=== PATIENT | male | born 1950 | race Caucasian/White ===

== ENCOUNTER → 2022-03-02 09:56 | Outpatient (BNVA) | payer MEDICARE, SELFPAY | PROVIDERS: PCP Internal Medicine; Visit Provider Psychiatry & Neurology Neurology | DX: G47.33 Obstructive sleep apnea (adult) (pediatric) (principal) | CPT/HCPCS: 99212 ==

== ENCOUNTER → 2023-02-25 09:53 | Outpatient (BNVA) | payer MEDICARE, SELFPAY | PROVIDERS: PCP Internal Medicine; Visit Provider Nurse Practitioner Family | DX: G47.33 Obstructive sleep apnea (adult) (pediatric) (principal) | CPT/HCPCS: 99212 ==

== ENCOUNTER 2023-09-13 10:35 | Outpatient (AMB) | payer MEDICARE, SELFPAY ==
--- NOTE | 2023-09-13 10:41 | HO.NEPHOV_ITS ---
HPI HPI Comments History of Present Illness Details Bruno is a pleasant middle-aged man with a history of resistant hypertension in the setting of obstructive sleep apnea and obesity. Blood pressure has been rather difficult to control in the past. He is sensitive to various medications In the past blood pressure was well controlled with Bystolic. During his recent hospitalization at [facility] all his medications with changes due to significantly elevated blood pressure. Currently he is on spironolactone 25 mg daily, clonidine 0.1 mg at bedtime, carvedilol 20 mg twice a day. Home blood pressure readings have been acceptable. He is having issues with clonidine and wants to stop this. There is a history of H pylori but he was unable to tolerate the treatment regimen and all the medications were discontinued few months ago. He had significant GI symptoms which seems to improved over the last month or so. He is having some trouble breathing in the form of wheezing when he goes out any attributes this to allergies. He follows with Dr. Enriquez from pulmonary History of severe aortic regurgitation status post TAVR in June 2020. Status post pacemaker placement [facility] Medical History Asthma Obstructive sleep apnea Surgical History S/P placement of cardiac pacemaker Aortic valve replaced H/O shoulder surgery Family History Father Afib Mother Pacemaker Social History Patient Tobacco Use Status: Never used Tobacco Vital Signs 09/13/23 10:47 Height 5 ft 7 in Weight 217 lb BMI 34.0 BP 140/70 H Blood Pressure Location Rt brachial Position Sitting Pulse 60 Pulse Source Pulse Oximeter Pulse Oximetry (%) 97 Oxygen Delivery Method Room Air Physical Exam Vital Signs: Last Vital Signs Pulse 60 09/13/23 10:47 BP 140/70 H 09/13/23 10:47 Pulse Ox 97 09/13/23 10:47 Oxygen Delivery Method Room Air 09/13/23 10:47 BMI result Body Mass Index 34.0 Supine blood pressure 130/80 sitting and standing blood pressure were also and 130/80 on the right upper extremity no orthostatic changes. Const General: comfortable Nutritional Appearance: well nourished Orientation/consciousness: patient oriented x3 HEENT Head: No normal to inspection Mouth: moist mucous membranes Neck Neck: Yes supple and Yes no JVD Resp Auscultation: clear to auscultation bilaterally, no rales and rub present Cardio Jugular venous distension: no JVD Palpation: no palpable S3 and no palpable S4 Heart sounds: no rubs GI Palpation (GI): Soft to palpation and nontender Percussion: No Fluid wave present General: Yes no CVA tenderness Back/Spine/Pelvis Back: no CVA tenderness Skin General skin exam: no rashes or lesions noted Neuro General: patient oriented x3 Extrem General: Yes no pedal edema and No clubbing Results Reviewed Results Reviewed: All results were reviewed As of June serum creatinine 1.1; serum electrolytes were normal. Assessment & Plan Assessment & Plan (1) HTN (hypertension): Code(s): I10 - Essential (primary) hypertension (2) Obstructive sleep apnea: Code(s): G47.33 - Obstructive sleep apnea (adult) (pediatric) Plan Bruno has resistant hypertension in setting of obstructive sleep apnea and blood pressure has been difficult to control. He has sensitive to weight is antidepressant medications and this has made management rather difficult. The list of medication that he is allergic to have been listed above. He able to tolerate Carvedilol and Spironolactone. I will continue with current dose of Carvedilol and Spironolactone. Encouraged him to stay on low-sodium diet Continue to use CPAP regularly. At his request I will discuss continue Clonidine 0.1 mg q.h.s. and continue to monitor blood pressure closely. Hopefully did the side effects that he is complaining of which is related to Clonidine should improve. Coding Level of Care Code Est Pt Level 4 (47552) Diagnoses HTN (hypertension) I10 Obstructive sleep apnea G47.33
[2023-09-13 10:47] VITALS: BP 140/70; PULSE 60; O2SAT 97; BMI 34.0
== END 2023-09-13 11:09 | disposition home or self-care (01) ==
PROVIDERS: PCP Internal Medicine; Visit Provider Internal Medicine Hypertension Specialist
DX: I10 Essential (primary) hypertension (principal); G47.33 Obstructive sleep apnea (adult) (pediatric)
CPT/HCPCS: 99214

== ENCOUNTER → 2023-09-13 10:35 | Outpatient (BNVA) | payer MEDICARE, SELFPAY | PROVIDERS: PCP Internal Medicine; Visit Provider Internal Medicine Hypertension Specialist | DX: I10 Essential (primary) hypertension (principal); G47.33 Obstructive sleep apnea (adult) (pediatric) | CPT/HCPCS: 99212 ==

== ENCOUNTER 2024-01-08 11:03 | Outpatient (AMB) | payer MEDICARE, SELFPAY ==
[2024-01-08 11:04] VITALS: BP 162/84; PULSE 82; O2SAT 96; BMI 34.5
--- NOTE | 2024-01-08 11:04 | HO.NEPHOV ---
HPI HPI Comments History of Present Illness Details Bruno is a pleasant middle-aged man with a history of resistant hypertension in the setting of obstructive sleep apnea and obesity. Blood pressure has been rather difficult to control in the past. He is sensitive to various medications In the past blood pressure was well controlled with Bystolic. During his recent hospitalization at [facility] all his medications with changes due to significantly elevated blood pressure. Currently he is on spironolactone 25 mg daily, clonidine 0.1 mg at bedtime, carvedilol 20 mg twice a day. Home blood pressure readings have been acceptable. He is having issues with clonidine and wants to stop this. There is a history of H pylori but he was unable to tolerate the treatment regimen and all the medications were discontinued few months ago. He had significant GI symptoms which seems to improved over the last month or so. He is having some trouble breathing in the form of wheezing when he goes out any attributes this to allergies. He follows with Dr. Enriquez from pulmonary History of severe aortic regurgitation status post TAVR in June 2020. Status post pacemaker placement 01/08/24 Home BP was high H is back on Clonidine 0.1 mg QHS Still has dyspnea on exertion No chest pain PFSH Medical History Asthma Obstructive sleep apnea Surgical History S/P placement of cardiac pacemaker Aortic valve replaced H/O shoulder surgery Family History Father Afib Mother Pacemaker Social History Patient Tobacco Use Status: Never used Tobacco Vital Signs 01/08/24 11:04 Height 5 ft 7 in Weight 220 lb BMI 34.5 BP 162/84 H Blood Pressure Location Lt brachial Position Sitting Pulse 82 Pulse Source Pulse Oximeter Pulse Oximetry (%) 96 Oxygen Delivery Method Room Air Physical Exam Vital Signs: Last Vital Signs Pulse 82 01/08/24 11:04 BP 162/84 H 01/08/24 11:04 Pulse Ox 96 01/08/24 11:04 Oxygen Delivery Method Room Air 01/08/24 11:04 BMI result Body Mass Index 34.5 Const General: comfortable Nutritional Appearance: well nourished Orientation/consciousness: patient oriented x3 HEENT Head: No normal to inspection Mouth: moist mucous membranes Neck Neck: Yes supple and Yes no JVD Resp Auscultation: clear to auscultation bilaterally, no rales and rub present Cardio Jugular venous distension: no JVD Palpation: no palpable S3 and no palpable S4 Heart sounds: no rubs GI Palpation (GI): Soft to palpation and nontender Percussion: No Fluid wave present General: Yes no CVA tenderness Back/Spine/Pelvis Back: no CVA tenderness Skin General skin exam: no rashes or lesions noted Neuro General: patient oriented x3 Extrem General: Yes no pedal edema and No clubbing Assessment & Plan Assessment & Plan (1) HTN (hypertension): Code(s): I10 - Essential (primary) hypertension (2) Obstructive sleep apnea: Code(s): G47.33 - Obstructive sleep apnea (adult) (pediatric) Plan Bruno has resistant hypertension in setting of obstructive sleep apnea and blood pressure has been difficult to control. He has sensitive to weight is antidepressant medications and this has made management rather difficult. The list of medication that he is allergic to have been listed above. Encouraged him to stay on low-sodium diet Continue to use CPAP regularly. continue Clonidine 0.1 mg q.h.s. and continue to monitor blood pressure closely. Needs cardiac evaluation for dyspnea on exertion Has appt with cards in few months Orders: Orders Basic Metabolic Panel 4 Months I10 - Essential (primary) hypertension Coding Level of Care Code Est Pt Level 4 (23117) Diagnoses HTN (hypertension) I10 Obstructive sleep apnea G47.33 Results Reviewed Nephrology Results: No Data to Display
== END 2024-01-08 11:32 | disposition home or self-care (01) ==
PROVIDERS: PCP Internal Medicine; Visit Provider Internal Medicine Hypertension Specialist
DX: I10 Essential (primary) hypertension (principal); G47.33 Obstructive sleep apnea (adult) (pediatric)
CPT/HCPCS: 99214

== ENCOUNTER → 2024-01-08 11:03 | Outpatient (BNVA) | payer MEDICARE, SELFPAY | PROVIDERS: PCP Internal Medicine; Visit Provider Internal Medicine Hypertension Specialist | DX: I10 Essential (primary) hypertension (principal); G47.33 Obstructive sleep apnea (adult) (pediatric); E66.9 Obesity, unspecified; Z79.899 Other long term (current) drug therapy | CPT/HCPCS: 99212 ==

== ENCOUNTER 2024-02-26 10:58 | Outpatient (AMB) | payer MEDICARE, SELFPAY ==
--- NOTE | 2024-02-26 11:02 | MHC.OFFVIS ---
Vital Signs 02/26/24 11:19 Height 5 ft 7 in Weight 216 lb 8 oz BMI 33.9 BP 140/70 H Blood Pressure Location Lt brachial Position Sitting Pulse 61 Pulse Source Pulse Oximeter Pulse Oximetry (%) 98 Oxygen Delivery Method Room Air Intake Visit Reasons: 1yr f/u - Conf w/address Intake Note: Patient presents for 1 year f/u. Having trouble falling back to sleep after waking up during the night. Latest CPAP machine broke and pt. is using previous machine. Pt. needs a schedule appt for Nov for new order for a new machine. Allergies amlodipine Allergy (Mild, Verified 02/26/24 11:12) Drowsy erythromycin base Allergy (Mild, Verified 02/26/24 11:12) Abdominal Pain Penicillins Allergy (Mild, Verified 02/26/24 11:12) Rash statins Allergy (Severe, Uncoded 02/25/23 10:05) joint pain HPI Comments Details: 74 y/o male patient comes for follow up of MANNY on CPAP. Pt reports his CPAP broken, and uses his old CPAP. He is eligible for new CPAP after September,. The CPAP compliance and therapy response (11/02/23-01/30/24) reviewed. He is on AutoPAP 8-13 cm of water. Compliance report-98% The average usage hours 7 hours and 45 min. AHI 1.2 and the max pressure was 12.9. Pt reports having trouble staying sleep. He goes to bathroom between 2:30-4:30 am and it is hard to go back to sleep. He sleeps, but feels not having deep sleep or resting enough. [facility] Medical History Asthma Obstructive sleep apnea Surgical History S/P placement of cardiac pacemaker Aortic valve replaced H/O shoulder surgery Family History (Updated 02/26/24 @ 11:19 by Kay Colbert CMA) Father Afib Mother Pacemaker Social History Patient Tobacco Use Status: Never used Tobacco Review of Systems Const All systems reviewed & are unremarkable except as noted in HPI and below ENT Reports Normal hearing present Neuro Reports Normal hearing present Physical Exam Vital Signs: BMI result Body Mass Index 33.9 Const General: cooperative and comfortable Nutritional Appearance: obese Orientation/consciousness: patient oriented x3 Limitations: no limitations Neck Neck: Yes full ROM and Yes supple Resp Effort & Inspection: normal respiratory effort and able to speak in complete sentences Neuro General: patient oriented x3, gait normal, tone normal and moves all extremities Cranial nerves: Yes Bilaterally intact EOM present, Yes Normal facial strength present, Yes Midline tongue present, Yes Normal hearing present, Yes Ability to bilaterally rotate head present and Yes Ability to bilaterally elevate shoulders present Cognition (Neuro): normal cognition Gait exam (Neuro): Normal gait present Motor exam (neuro): 5/5 motor strength present throughout, Pronator motor function not present and no tremor noted Psych Appearance: grossly normal Mental Status: mental status grossly normal Speech and movement: Normal speech and movement present Affect: normal affect Attitude: cooperative Assessment & Plan Assessment & Plan (1) Obstructive sleep apnea: Code(s): G47.33 - Obstructive sleep apnea (adult) (pediatric) Category: Medical Plan Continue to use APAP [id number] as patient experiences good clinical effects. Stressed compliance, use CPAP nightly and more than 4 hours. Advised patient to try melatonin 1 mg, 1-3 tabs qHS. Wt reduction advised. Medications: New melatonin 1-3 tabs orally bedtime; 30 days 90 tabs 1RF sleep Coding Level of Care Code Est Pt Level 3 (04507) Diagnoses Obstructive sleep apnea G47.33
[2024-02-26 11:19] VITALS: BP 140/70; PULSE 61; O2SAT 98; BMI 33.9
== END 2024-02-26 11:45 | disposition home or self-care (01) ==
PROVIDERS: Visit Provider Nurse Practitioner Family
DX: G47.33 Obstructive sleep apnea (adult) (pediatric) (principal)
CPT/HCPCS: 99213

== ENCOUNTER → 2024-02-26 10:58 | Outpatient (BNVA) | payer MEDICARE, SELFPAY | PROVIDERS: Visit Provider Nurse Practitioner Family | DX: G47.33 Obstructive sleep apnea (adult) (pediatric) (principal) | CPT/HCPCS: 99212 ==

== ENCOUNTER 2024-05-07 10:49 | Outpatient (AMB) | payer MEDICARE, SELFPAY ==
[2024-05-07 10:50] VITALS: BP 146/82; PULSE 66; O2SAT 97; BMI 34.0
--- NOTE | 2024-05-07 10:50 | HO.NEPHOV_ITS ---
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 Required: No Accompanied by: Self / Same As Patient Allergies amlodipine Allergy (Mild, Verified 05/07/24 10:53) Drowsy erythromycin base Allergy (Mild, Verified 05/07/24 10:53) Abdominal Pain Penicillins Allergy (Mild, Verified 05/07/24 10:53) Rash statins Allergy (Severe, Uncoded 02/25/23 10:05) joint pain Medication List - Last Reconciled 05/07/24 by Abran Iqbal MD albuterol sulfate 90 mcg/actuation (Ventolin HFA) 2 puffs inhalation Q6H PRN aspirin (Adult Low Dose Aspirin) 81 mg PO DAILY budesonide-formoterol 160-4.5 mcg/actuation (Symbicort) 2 puffs inhalation BID carvedilol 6.25 mg PO BID carvedilol 12.5 mg PO BID clonidine HCl 0.1 mg PO BEDTIME CPAP (CPAP Machine/Device) As directed ipratropium bromide intranasal PRN melatonin 1-3 tabs orally bedtime; 30 days peak flow meter (In-Check Nasal With Mask) As directed spironolactone 25 mg PO DAILY HPI Comments Details: Bruno is a pleasant middle-aged man with a history of resistant hypertension in the setting of obstructive sleep apnea and obesity. Blood pressure has been rather difficult to control in the past. He is sensitive to various medications In the past blood pressure was well controlled with Bystolic. During his recent hospitalization at [facility] all his medications with changes due to significantly elevated blood pressure. Currently he is on spironolactone 25 mg daily, clonidine 0.1 mg at bedtime, carvedilol 20 mg twice a day. Home blood pressure readings have been acceptable. He is having issues with clonidine and wants to stop this. There is a history of H pylori but he was unable to tolerate the treatment regimen and all the medications were discontinued few months ago. He had significant GI symptoms which seems to improved over the last month or so. He is having some trouble breathing in the form of wheezing when he goes out any attributes this to allergies. He follows with Dr. Enriquez from pulmonary History of severe aortic regurgitation status post TAVR in June 2020. Status post pacemaker placement 01/08/24 Home BP was high H is back on Clonidine 0.1 mg QHS Still has dyspnea on exertion No chest pain 05/07/2024. Here for follow-up. Continues with the current antihypertensive regimen. He wakes up at night what least once to urinate. He takes melatonin. Home blood pressure readings were reviewed [facility] Medical History Asthma Obstructive sleep apnea Surgical History S/P placement of cardiac pacemaker Aortic valve replaced H/O shoulder surgery Family History Father Afib Mother Pacemaker Social History Patient Tobacco Use Status: Never used Tobacco Physical Exam Vital Signs: Last Vital Signs Pulse 66 05/07/24 10:50 BP 146/82 H 05/07/24 10:50 Pulse Ox 97 05/07/24 10:50 Oxygen Delivery Method Room Air 05/07/24 10:50 BMI result Body Mass Index 34.0 Const General: comfortable; No acute distress Orientation/consciousness: patient oriented x3 Eyes General: appearance normal, both eyes and all related structures Visual Cueav: normal visual cueva by confrontation Neck Neck: Yes supple and Yes no JVD Resp Effort & Inspection: normal respiratory effort and respiratory effort not decreased Auscultation: rhonchi Cardio Palpation: no palpable S3 and no palpable S4 Heart sounds: no rubs GI Inspection: Yes normal to inspection Palpation (GI): Soft to palpation Percussion: Yes normal to percussion Auscultation: normal bowel sounds General: Yes no CVA tenderness Back/Spine/Pelvis Back: no CVA tenderness Skin General skin exam: no petechiae and no purpura Neuro General: patient oriented x3 and no focal motor deficits Extrem General: No clubbing and No edema Results Reviewed Results Reviewed: Labs reviewed Nephrology Results: No Data to Display Assessment & Plan Assessment & Plan (1) HTN (hypertension): Code(s): I10 - Essential (primary) hypertension Category: Medical (2) Obstructive sleep apnea: Code(s): G47.33 - Obstructive sleep apnea (adult) (pediatric) Category: Medical Plan Bruno has resistant hypertension in setting of obstructive sleep apnea and blood pressure has been difficult to control. He has sensitive to weight is antidepressant medications and this has made management rather difficult. The list of medication that he is allergic to have been listed above. Encouraged him to stay on low-sodium diet Continue to use CPAP regularly. Current continue with current regimen including carvedilol 18.75 mg b.i.d. and spironolactone 25 mg daily. continue Clonidine 0.1 mg q.h.s. and continue to monitor blood pressure closely. Medications: Changed From carvedilol must administer with a meal/food 12.5 mg PO BID To carvedilol In addition to 6.25 mg BID ; 12.5 mg PO BID 180 tabs 3RF Refilled spironolactone 25 mg PO DAILY 90 tabs 3RF carvedilol 6.25 mg PO BID 180 tabs 3RF Coding Level of Care Code Est Pt Level 4 (59807) Diagnoses HTN (hypertension) I10 Obstructive sleep apnea G47.33
== END 2024-05-07 11:19 | disposition home or self-care (01) ==
PROVIDERS: PCP Internal Medicine; Visit Provider Internal Medicine Hypertension Specialist
DX: I10 Essential (primary) hypertension (principal); G47.33 Obstructive sleep apnea (adult) (pediatric)
CPT/HCPCS: 99214

== ENCOUNTER → 2024-05-07 10:49 | Outpatient (BNVA) | payer MEDICARE, SELFPAY | PROVIDERS: PCP Internal Medicine; Visit Provider Internal Medicine Hypertension Specialist | DX: I10 Essential (primary) hypertension (principal); G47.33 Obstructive sleep apnea (adult) (pediatric) | CPT/HCPCS: 99212 ==

== ENCOUNTER 2024-08-05 13:45 | Outpatient (AMB) | payer MEDICARE, SELFPAY ==
[2024-08-05 13:45] VITALS: BP 138/78; PULSE 65; O2SAT 81; BMI 33.7
--- NOTE | 2024-08-05 13:45 | HO.NEPHOV_ITS ---
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 Required: No Accompanied by: Self / Same As Patient Allergies amlodipine Allergy (Mild, Verified 08/05/24 13:49) Drowsy erythromycin base Allergy (Mild, Verified 08/05/24 13:49) Abdominal Pain Penicillins Allergy (Mild, Verified 08/05/24 13:49) Rash statins Allergy (Severe, Uncoded 02/25/23 10:05) joint pain Medication List - Last Reconciled 08/05/24 by Abran Iqbal MD albuterol sulfate 90 mcg/actuation (Ventolin HFA) 2 puffs inhalation Q6H PRN aspirin (Adult Low Dose Aspirin) 81 mg PO DAILY budesonide-formoterol 160-4.5 mcg/actuation (Symbicort) 2 puffs inhalation BID carvedilol 12.5 mg PO BID carvedilol 6.25 mg PO BID clonidine HCl 0.1 mg PO BEDTIME CPAP (CPAP Machine/Device) As directed ipratropium bromide intranasal PRN melatonin 1-3 tabs orally bedtime; 30 days peak flow meter (In-Check Nasal With Mask) As directed spironolactone 25 mg PO DAILY HPI Comments Details: Bruno is a pleasant middle-aged man with a history of resistant hypertension in the setting of obstructive sleep apnea and obesity. Blood pressure has been rather difficult to control in the past. He is sensitive to various medications In the past blood pressure was well controlled with Bystolic. During his recent hospitalization at [facility] all his medications with changes due to significantly elevated blood pressure. Currently he is on spironolactone 25 mg daily, clonidine 0.1 mg at bedtime, carvedilol 20 mg twice a day. Home blood pressure readings have been acceptable. He is having issues with clonidine and wants to stop this. There is a history of H pylori but he was unable to tolerate the treatment regimen and all the medications were discontinued few months ago. He had significant GI symptoms which seems to improved over the last month or so. He is having some trouble breathing in the form of wheezing when he goes out any attributes this to allergies. He follows with Dr. Enriquez from pulmonary History of severe aortic regurgitation status post TAVR in June 2020. Status post pacemaker placement 01/08/24 Home BP was high H is back on Clonidine 0.1 mg QHS Still has dyspnea on exertion No chest pain 05/07/2024. Here for follow-up. Continues with the current antihypertensive regimen. He wakes up at night what least once to urinate. He takes melatonin. Home blood pressure readings were reviewed 08/05/24 OverallOverall doing well BP accpetable Complains of increased urinary frequency at night. He has some hesitancy as well. [facility] Medical History Asthma Obstructive sleep apnea Surgical History S/P placement of cardiac pacemaker Aortic valve replaced H/O shoulder surgery Family History Father Afib Mother Pacemaker Social History Patient Tobacco Use Status: Never used Tobacco Physical Exam Vital Signs: Last Vital Signs Pulse 65 08/05/24 13:45 BP 138/78 08/05/24 13:45 Pulse Ox 81 L 08/05/24 13:45 Oxygen Delivery Method Room Air 08/05/24 13:45 BMI result Body Mass Index 33.7 Const General: comfortable; No acute distress Orientation/consciousness: patient oriented x3 Eyes General: appearance normal, both eyes and all related structures Visual Cueva: normal visual cueva by confrontation Neck Neck: Yes supple and Yes no JVD Resp Effort & Inspection: normal respiratory effort and respiratory effort not decreased Auscultation: rhonchi Cardio Palpation: no palpable S3 and no palpable S4 Heart sounds: no rubs GI Inspection: Yes normal to inspection Palpation (GI): Soft to palpation Percussion: Yes normal to percussion Auscultation: normal bowel sounds General: Yes no CVA tenderness Back/Spine/Pelvis Back: no CVA tenderness Skin General skin exam: no petechiae and no purpura Neuro General: patient oriented x3 and no focal motor deficits Extrem General: No clubbing and No edema Results Reviewed Nephrology Results: No Data to Display Assessment & Plan Assessment & Plan (1) HTN (hypertension): Code(s): I10 - Essential (primary) hypertension Category: Medical (2) Obstructive sleep apnea: Code(s): G47.33 - Obstructive sleep apnea (adult) (pediatric) Category: Medical (3) BPH (benign prostatic hyperplasia): Code(s): N40.0 - Benign prostatic hyperplasia without lower urinary tract symptoms Category: Medical Plan Bruno has resistant hypertension in setting of obstructive sleep apnea and blood pressure has been difficult to control. He has sensitive to weight is antidepressant medications and this has made management rather difficult. The list of medication that he is allergic to have been listed above. Encouraged him to stay on low-sodium diet Continue to use CPAP regularly. Current continue with current regimen including carvedilol 18.75 mg b.i.d. and spironolactone 25 mg daily. continue Clonidine 0.1 mg q.h.s. and continue to monitor blood pressure closely. Increase nocturia and hesitancy. Probably has BPH She was referred to Urology Orders: Referrals Urology Referral N40.0 - Benign prostatic hyperplasia without lower urinary tract symptoms, R31.9 - Hematuria, unspecified Coding Level of Care Code Est Pt Level 4 (25838) Diagnoses HTN (hypertension) I10 Obstructive sleep apnea G47.33 BPH (benign prostatic hyperplasia) N40.0
== END 2024-08-05 14:20 | disposition home or self-care (01) ==
PROVIDERS: PCP Internal Medicine; Visit Provider Internal Medicine Hypertension Specialist
DX: I1A.0 Resistant hypertension (principal); G47.33 Obstructive sleep apnea (adult) (pediatric); N40.0 Benign prostatic hyperplasia without lower urinary tract symptoms
CPT/HCPCS: 99214

== ENCOUNTER → 2024-08-05 13:45 | Outpatient (BNVA) | payer MEDICARE, SELFPAY | PROVIDERS: PCP Internal Medicine; Visit Provider Internal Medicine Hypertension Specialist | DX: I10 Essential (primary) hypertension (principal); N40.0 Benign prostatic hyperplasia without lower urinary tract symptoms; R31.9 Hematuria, unspecified; E66.9 Obesity, unspecified; G47.33 Obstructive sleep apnea (adult) (pediatric); Z68.33 Body mass index [BMI] 33.0-33.9, adult | CPT/HCPCS: 99212 ==

== ENCOUNTER 2024-09-16 12:31 | Outpatient (AMB) | payer MEDICARE, SELFPAY ==
--- NOTE | 2024-09-16 12:37 | MHC.OFFVIS ---
Vital Signs 09/16/24 12:38 Height 5 ft 7 in Weight 215 lb BMI 33.7 Intake Visit Reasons: requalify CPAP supply Intake Note: Patient presents for follow up Allergies amlodipine Allergy (Mild, Verified 09/16/24 12:38) Drowsy erythromycin base Allergy (Mild, Verified 09/16/24 12:38) Abdominal Pain Penicillins Allergy (Mild, Verified 09/16/24 12:38) Rash statins Allergy (Severe, Uncoded 09/16/24 12:38) joint pain HPI Comments Details: 74 y/o male patient comes for follow up of MANNY on CPAP. Pt reports his CPAP broken, and uses his old CPAP. He is eligible for new CPAP after September,. The CPAP compliance and therapy response (11/02/23-01/30/24) reviewed. He is on AutoPAP 8-13 cm of water. Compliance report-98% The average usage hours 7 hours and 45 min. AHI 1.2 and the max pressure was 12.9. [facility] Medical History Asthma Obstructive sleep apnea Surgical History S/P placement of cardiac pacemaker Aortic valve replaced H/O shoulder surgery Family History Father Afib Mother Pacemaker Social History Patient Tobacco Use Status: Never used Tobacco Review of Systems ENT Reports Normal hearing present Neuro Reports Normal hearing present Physical Exam Vital Signs: BMI result Body Mass Index 33.7 Const General: cooperative Nutritional Appearance: obese Orientation/consciousness: patient oriented x3 Limitations: no limitations Neck Neck: Yes full ROM and Yes supple Resp Effort & Inspection: normal respiratory effort and able to speak in complete sentences Neuro General: patient oriented x3, gait normal, tone normal and moves all extremities Cranial nerves: Yes Bilaterally intact EOM present, Yes Normal facial strength present, Yes Midline tongue present, Yes Normal hearing present, Yes Ability to bilaterally rotate head present and Yes Ability to bilaterally elevate shoulders present Cognition (Neuro): normal cognition Gait exam (Neuro): Normal gait present Motor exam (neuro): 5/5 motor strength present throughout, Pronator motor function not present and no tremor noted Psych Appearance: grossly normal Mental Status: mental status grossly normal Speech and movement: Normal speech and movement present Affect: normal affect Attitude: cooperative Assessment & Plan Assessment & Plan (1) Obstructive sleep apnea: Code(s): G47.33 - Obstructive sleep apnea (adult) (pediatric) Category: Medical Plan Continue to use APAP [id number] as patient experiences good clinical effects.A script for anew equipment was sent to [facility]. Stressed compliance, use CPAP nightly and more than 4 hours. Advised patient to try melatonin 1 mg, 1-3 tabs qHS. Wt reduction advised. Suggested he call PCP or go to Urgent care for evaluation of diarrhea and possible dehydration. Orders: Orders RT home sleep study Today G47.33 - Obstructive sleep apnea (adult) (pediatric) Coding Level of Care Code Est Pt Level 4 (38611) Complex EM visit Add On G2211 Diagnoses Obstructive sleep apnea G47.33
[2024-09-16 12:38] VITALS: BMI 33.7
== END 2024-09-16 13:05 | disposition home or self-care (01) ==
PROVIDERS: PCP Obstetrics & Gynecology; Visit Provider Psychiatry & Neurology Neurology
DX: G47.33 Obstructive sleep apnea (adult) (pediatric) (principal)
CPT/HCPCS: 99214; G2211

== ENCOUNTER → 2024-09-16 12:31 | Outpatient (BNVA) | payer MEDICARE, SELFPAY | PROVIDERS: PCP Obstetrics & Gynecology; Visit Provider Psychiatry & Neurology Neurology | DX: G47.33 Obstructive sleep apnea (adult) (pediatric) (principal); Z99.89 Dependence on other enabling machines and devices; Z76.0 Encounter for issue of repeat prescription | CPT/HCPCS: 99212 ==

== ENCOUNTER 2024-10-05 14:51 | Outpatient (AMB) | payer MEDICARE, SELFPAY ==
--- NOTE | 2024-10-04 21:53 | MHC.OFFVIS ---
Intake Visit Reasons: Increase nocturia and hesitancy Intake Note: New patient is present to establish care for BPH, Hematuria Any Urology Medications: None Antibiotic Allergy: Erythromycin, Penicillins Blood Thinner: Aspirin PVR: 12ml's Family History: Bladder Cancer? No Prostate Cancer? No Patient Symptoms: Patient states he is having problem going to urinate, some pain in the bladder Change Management Facilitator Required: No Accompanied by: Self / Same As Patient Allergies amlodipine Allergy (Mild, Verified 10/05/24 16:03) Drowsy erythromycin base Allergy (Mild, Verified 10/05/24 16:03) Abdominal Pain Penicillins Allergy (Mild, Verified 10/05/24 16:03) Rash statins Allergy (Severe, Uncoded 10/05/24 16:03) joint pain Medication List - Last Reconciled 10/05/24 by Jimmie Olson MD albuterol sulfate 90 mcg/actuation (Ventolin HFA) 2 puffs inhalation Q6H PRN aspirin (Adult Low Dose Aspirin) 81 mg PO DAILY budesonide-formoterol 160-4.5 mcg/actuation (Symbicort) 2 puffs inhalation BID clonidine HCl 0.1 mg PO BEDTIME CPAP (CPAP Machine/Device) As directed ipratropium bromide intranasal PRN melatonin 1-3 tabs orally bedtime; 30 days nebivolol (Bystolic) 20 mg PO DAILY peak flow meter (In-Check Nasal With Mask) As directed spironolactone 25 mg PO DAILY tamsulosin (Flomax) 0.4 mg PO BEDTIME HPI Comments Details: 10/05/24--new patient-BPH symptoms. s/o's slow urinary stream, nocturia. AUA score 17. PMH of chronic kidney disease, followed by Neurology for obstructive sleep apnea. Denies hematuria. Will trial flomax 0.4 mg daily. PFSH Medical History Asthma Obstructive sleep apnea Surgical History S/P placement of cardiac pacemaker Aortic valve replaced H/O shoulder surgery Family History Father Afib Mother Pacemaker Social History Patient Tobacco Use Status: Never used Tobacco Review of Systems Const All systems reviewed & are unremarkable except as noted in HPI and below Reports no additional complaints Eyes Reports no additional complaints ENT Reports no additional complaints Card Reports no additional complaints Resp Reports no additional complaints GI Reports no additional complaints Reports as per HPI Musc Reports no additional complaints Skin/Breast Reports system reviewed and no additional complaints, except as documented Neuro Reports no additional complaints Psych Reports no additional complaints Endo Reports no additional complaints Micheal/Lymph Reports no additional complaints Aller/Immun Reports no additional complaints Physical Exam Const General: healthy appearing, no acute distress and well developed Orientation/consciousness: patient oriented x3 HEENT Head: Yes normocephalic and Yes atraumatic Eyes Conjunctivae: conjunctivae normal Neck Neck: Yes normal visual inspection Chest Chest palpation & inspection: normal inspection of the chest Resp Effort & Inspection: normal respiratory effort GI Inspection: Yes normal to inspection Skin General skin exam: no rashes or lesions noted Neuro General: patient oriented x3 Extrem General: No pedal edema Psych Appearance: grossly normal Affect: normal affect Office Procedures Post Void Residual Post Residual Void Post Void Residual (PVR): 12 51587-[id number] Void Residual by ultrasound Results AMB Urinalysis, Automated UA Leukoctes 0 Gene/uL Last Edit by Karina Shields CMA on 10/05/24 16:06 UA Nitrite Negative Last Edit by Karina Shields CMA on 10/05/24 16:06 UA Urobilinogen 0.2 mg/dL Last Edit by Karina Shields CMA on 10/05/24 16:06 UA Protein 0 mg/dL Last Edit by Karina Shields CMA on 10/05/24 16:06 UA pH 6.0 Last Edit by Karina Shields CMA on 10/05/24 16:06 UA Blood 10 Anthony/uL Last Edit by Karina Shields CMA on 10/05/24 16:06 UA Specific [place] 1.030 Last Edit by Karina Shields CMA on 10/05/24 16:06 UA Ketone Negative Last Edit by Karina Shields CMA on 10/05/24 16:06 UA Bilirubin 0 mg/dL Last Edit by Karina Shields CMA on 10/05/24 16:06 UA Glucose 0 mg/dL Last Edit by Karina Shields CMA on 10/05/24 16:06 Quality Reporting (2019) Benign Prostatic Hyperplasia ([facility] 771) AUA symptom score: 17 Quality of life due to urinary symptoms: If you were to spend the rest of your life with your urinary condition the way it is now, how would you feel about that?: Unhappy Results Reviewed Results Reviewed: Laboratory Last Values Urine pH (Auto) 6.0 10/05/24 15:30 Specific [place] (Auto) 1.030 10/05/24 15:30 Urine Protein (Auto) 0 mg/dL 10/05/24 15:30 Glucose (UA)(Auto) 0 mg/dL 10/05/24 15:30 Urine Ketones (Auto) Negative 10/05/24 15:30 Urine Blood (Auto) 10 Anthony/uL 10/05/24 15:30 Urine Nitrite (Auto) Negative 10/05/24 15:30 Urine Bilirubin (Auto) 0 mg/dL 10/05/24 15:30 Urine Urobilinogen (Auto) 0.2 mg/dL 10/05/24 15:30 Leukocyte Esterase (Auto) 0 Gene/uL 10/05/24 15:30 Assessment & Plan Assessment & Plan (1) BPH (benign prostatic hyperplasia): Code(s): N40.0 - Benign prostatic hyperplasia without lower urinary tract symptoms Category: Medical (2) Weak urinary stream: Code(s): R39.12 - Poor urinary stream Category: Medical (3) Nocturia: Code(s): R35.1 - Nocturia Category: Medical Plan renal/bladder US, tamsulin 04 mg daily Orders: Orders AMB Urinalysis Automated 10/05/24 Z13.9 - Encounter for screening, unspecified AMB Post Void Residual by ultrasound 10/05/24 N40.0 - Benign prostatic hyperplasia without lower urinary tract symptoms US retroperitoneal comp 10/05/24 N40.0 - Benign prostatic hyperplasia without lower urinary tract symptoms, R35.1 - Nocturia Medications: New tamsulosin (Flomax) 0.4 mg PO BEDTIME 30 caps 3RF Patient Instructions: The patient had an opportunity to ask questions regarding treatment plan. The patient expressed understanding and agreement with the above treatment plan. The patient is aware they should contact our office by phone for worsening of their current condition or the appearance of new symptoms. Compliance is encouraged with any medications and followup testing that is ordered. It is a privilege to be allowed the opportunity to participate in the urologic care of your patient. If you have any questions or concerns regarding treatment for the above conditions please do not hesitate to contact me. The office telephone contact is [phone]. This note is constructed in part using voice recognition software. 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 Yours sincerely, Jimmie Olson MD Coding Level of Care Code New Pt Level 4 (86490) Diagnoses BPH (benign prostatic hyperplasia) N40.0 Weak urinary stream R39.12 Nocturia R35.1 CPT Codes Post Residual Void - PVR CPT Code: 82175-Gfcx Void Residual by ultrasound ([id number]) AUA Symptom Score AUA Incomplete emptying - It does not feel like I empty my bladder all the way.: 1 - Less than 1 time in 5 Frequency - I have to go again less than two hours after I finish urinating.: 1 - Less than 1 time in 5 Intermittency - I stop and start again several times when I urinate.: 1 - Less than 1 time in 5 Urgency - It is hard to wait when I have to urinate.: 5 - Almost always Weak stream - I have a weak urinary stream.: 5 - Almost always Straining - I have to push or strain to begin urination.: 2 - Less than half the time Nocturia - I get up to urinate after I go to bed until the time I get up in the morning.: 2 times AUA Symptom Score: 17 Quality of life due to urinary symptoms: If you were to spend the rest of your life with your urinary condition the way it is now, how would you feel about that?: Unhappy Source: Cory ZHENG, Wilmar CHOWDHURY Jr, O'Karrie MP, et al, and the Measurement Committee of the [employer]. The [employer] symptom index for benign prostatic hyperplasia. J Urol. 1992; 148: 0203-8477. Copyright 1992 [employer]
--- OUTSIDE RECORDS SUMMARY | 2024-10-07 16:15 | XMS_ITS | Continuity of Care Document ---
Author Organization [facility] Address [address] [address]- Care Team Providers Care Patient Access Registrar Name Role Phone Ya Riojas Primary Care Physician Encounter [facility] Date(s): 08/17/24 - 09/16/24 [facility] [address] [facility] [address] [place] [id number]- Encounter Type: Triage Allergies, Adverse Reactions, Alerts Substance Criticality Severity Reaction Reaction Severity Status diltiazem edema Active erythromycin gi cramps Active penicillin Rash Active lisinopril [D]Cough Active losartan chest pain Active amLODIPine High criticality Moderate Feeling tired Active Immunizations Given and Recorded Vaccine Date Status Refusal Reason zoster vaccine, inactivated 08/29/23 Recorded zoster vaccine, inactivated 04/15/23 Recorded RSV vaccine preF3, recombinant 08/29/23 Recorded influenza virus vaccine, inactivated 08/10/23 Reynaldo rded influenza virus vaccine, inactivated 08/03/22 Reynaldo rded influenza virus vaccine, inactivated 08/21/21 Reynaldo rded influenza virus vaccine, inactivated 07/22/20 Give n influenza virus vaccine, inactivated 09/11/18 Reynaldo rded influenza virus vaccine, inactivated 11/30/17 Reynaldo rded influenza virus vaccine, inactivated 08/22/16 Reynaldo rded influenza virus vaccine, inactivated 09/15/10 Give n influenza virus vaccine, inactivated 10/23/07 Give n SARS-CoV-2(COVID-19)mRNA-LNP vac([id number]) 08/10/23 Recorded tetanus/diphtheria/pertussis, acel(Tdap) 11/27/22 Given tetanus/diphtheria/pertussis, acel(Tdap) 11/29/12 Recorded [id number] bivalent booster vax 08/03/22 Recorded SARS-CoV-2 (COVID-19) mRNA-1273 vaccine 01/31/22 R ecorded SARS-CoV-2 (COVID-19) mRNA-1273 vaccine 08/21/21 R ecorded SARS-CoV-2 (COVID-19) mRNA-1273 vaccine 02/09/21 R ecorded SARS-CoV-2 (COVID-19) mRNA-1273 vaccine 01/10/21 R ecorded pneumococcal 23-valent vaccine 07/03/18 Recorded pneumococcal 13-valent vaccine 10/28/16 Recorded pneumococcal 13-valent vaccine 08/22/16 Recorded tetanus-diphtheria toxoids (Td) 07/26/05 Given Medications Albuterol (Eqv-Ventolin HFA) 90 mcg/inh inhalation aerosol 2 puffs, Inhalation, Every 6 hours, # 1 each, 11 Refills, Maintenance, 10/08/23 4:02:00 PM EST, [id number], Partial fill upon patient request if the prescription is for a schedule II opioid drug., 2 puffs Inhalation Every 6 hours, 170, cm, 10/08/23 15:28:00 EST, Height, 100, kg, 05/22/2321:40:00 EDT, Dry Weight Start Date: 10/08/23 Status: Ordered Quantity: 1.0 Unit: each Repeat number: 12 aspirin 81 mg oral capsule 1 capsule = 81 mg, By Mouth, Daily, 0 Refills, Maintenance, 03/21/23 12:15:00 PM EDT, Partial fill upon patient request if the prescription is for a schedule II opioid drug. Start Date: 03/21/23 Status: Ordered Repeat number: 1 carvedilol 12.5 mg oral tablet 12.5 mg, 1, tablet, By Mouth, 2 times a day, # 180 tablet, Refills 0, Maintenance, 03/03/24 2:03:00 PM EDT, Partial fill upon patient request if the prescription is for a schedule II opioid drug. Start Date: 03/03/24 Status: Ordered Quantity: 180.0 Unit: tablet Repeat number: 1 cloNIDine 0.1 mg oral tablet 0.1 mg, By Mouth, 2 times a day, # 60 tablet, Refills 0, Tot. 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 Start Date: 03/03/24 Status: Ordered Quantity: 90.0 Unit: tablet Repeat number: 1 Nasacort 1 sprays, Nares, Both, Daily at bedtime, 0 Refills, Maintenance, 11/19/19 8:38:00 AM EST Start Date: 11/19/19 Status: Ordered Repeat number: 1 spironolactone 25 mg oral tablet 25 mg, 1, tablet, By Mouth, Daily, # 30 tablet, Refills 0, Maintenance, 03/03/24 2:05:00 PM EDT, Partial fill upon patient request if the prescription is for a schedule II opioid drug. Start Date: 03/03/24 Status: Ordered Quantity: 30.0 Unit: tablet Repeat number: 1 Symbicort 160mcg/4.5mcg Inhaler See Instructions, Inhale 2 puffs by mouth twice daily, # 11 Gm, Refills 11, Maintenance, 09/11/24 1:16:00 PM EST, Instructions Replace Required Details, Route to Pharmacy Electronically, [id number], [id number], 169, cm, 08/28/24 10:25:00 EDT, Height, 95.9, kg, 05/12/24 13:50:00 EDT, Dry Weight Start Date: 09/11/24 Status: Ordered Quantity: 11.0 Unit: g Repeat number: 1 Problem List Condition Confirmation Course Effective Dates Status Health Status Informant Allergic rhinitis Confirmed Active Asthma Confirmed Active CKD (chronic kidney disease) stage 2, GFR 60-89 ml/min Confirmed Active Gout Confirmed Active Hemorrhoid Confirmed Active Hypercholesterolemia Confirmed Active Hyperlipidemia Confirmed Active Hypertension Confirmed 1999 Active HTN (hypertension) Confirmed Active Hernia, inguinal Confirmed 1975 Active Obese class I Confirmed Active MANNY - Obstructive sleep apnea Confirmed 2000 Active 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 Psoriasis Confirmed Active Psoriasis NOS Confirmed 02/12/11 Active Social History Social History Type Response Smoking Status Former smoker, quit more than 30 days ago; Type: Cigarettes; Type: Pipe; Tobacco use times per day: less than cigg a week, mostly pipe; Started at age: 16; Stopped at age: 31; entered on: 05/23/22 Sex Sex Representation Male (finding) Patient Care team information Care Team Personnel Name: Abran Iqbal MD Position: [facility] Renal MD Member Role: Lifetime Consulting Physician Address: [address] [place] [address] [address] [place] [address]- Telecom: Name: Cherry Granger RN Position: [facility] RN Supv Member Role: Primary Care Nurse Name: Christina Pryor Position: [facility] RN Member Role: Primary Care Nurse Name: Percy Denson RN Position: S RN Member Role: Primary Care Nurse Name: Ya Riojas Position: [facility] Associate Professional Member Role: PCP Address: [address] [facility] [address] [place] [address]- Telecom: Name: Sylvia Gallego RN Position: [facility] RN Member Role: Primary Care Nurse Name: Gilbert Hernández RN Position: [facility] RN Member Role: Primary Care Nurse Name: Luis Back RN Position: [facility] RN Member Role: Primary Care Nurse Name: Alexa Taylor RN Position: [facility] RN Member Role: Primary Care Nurse Name: Rosalio Kruger MD Position: [facility] Renal MD Member Role: Lifetime Consulting Physician Address: [address] [place] [address] [address] [facility], [place] [address]- Telecom: Name: Lashay Desai RN Position: S RN Member Role: Primary Care Nurse Care Team Related Persons Name: DULCE LINDSEY Insurance Providers Guarantor name: CAPO LINDSEY Health Plan Information #: 1 Payer: MEDICARE PART B OUTPT Member Number: NA Policy Number: NA Group Number: NA Health Plan Information #: 2 Payer: MEDEX Member Number: NA Policy Number: NA Group Number: NA
--- OUTSIDE RECORDS SUMMARY | 2024-10-07 16:15 | XMS_ITS | Continuity of Care Document ---
Author Organization [facility] ter Address [address] [place] [id number]- Care Team Providers Care [employer] Consultant Name Role Phone Ya Riojas Primary Care Physician Encounter [facility] Date(s): 09/17/24 - 09/24/[address] [id number]- Encounter Diagnosis Diverticulitis(Final) - 09/17/24 Sepsis(Final) - 09/17/24 LISA (acute kidney injury)(Final) - 09/17/24 Shortness of breath(Final) - 09/17/24 Discharge Disposition: A-D/C Home Attending Physician: Allyn ROCA, Helder Admitting Physician: Dolly Moncada MD Referring Physician: Not on Staff, Referring MD Encounter Type: Disch IP Allergies, Adverse Reactions, Alerts Substance Criticality Severity Reaction Reaction Severity Status diltiazem edema Active erythromycin gi cramps Active penicillin Rash Active lisinopril [D]Cough Active losartan chest pain Active amLODIPine High criticality Moderate Feeling tired Active Immunizations Given and Recorded Vaccine Date Status Refusal Reason pneumococcal 20-valent conjugate vaccine 07/29/24 Recorded zoster vaccine, inactivated 08/29/23 Recorded zoster vaccine, [...] virus vaccine, inactivated 10/23/07 Give n SARS-CoV-2(COVID-19)mRNA-LNP vac([id number]) 08/10/23 Recorded tetanus/diphtheria/pertussis, acel(Tdap) 11/27/22 Given tetanus/diphtheria/pertussis, acel(Tdap) 11/29/12 Recorded [id number] bivalent booster vax 08/03/22 Recorded SARS-CoV-2 (COVID-19) mRNA-1273 vaccine 01/31/22 R ecorded SARS-CoV-2 (COVID-19) mRNA-1273 vaccine 08/21/21 R ecorded SARS-CoV-2 (COVID-19) mRNA-1273 vaccine 02/09/21 R ecorded SARS-CoV-2 (COVID-19) mRNA-1273 vaccine 01/10/21 R ecorded pneumococcal 23-valent vaccine 07/03/18 Recorded pneumococcal 13-valent vaccine 10/28/16 Recorded pneumococcal 13-valent vaccine 08/22/16 Recorded tetanus-diphtheria toxoids (Td) 07/26/05 Given Medications acetaminophen 325 mg oral tablet 975 mg, 3, tablet, By Mouth, 3 times a day, for 14 days, Temperature Greater than 100.5, # 126 tablet, Refills 0, Tot. Refills 0, Acute 10/08/24 2:55:00 PM EST, 09/24/24 2:55:00 PM EST, Route to Pharmacy Electronically, [facility]/pharmacy #[id number], Partial fill upon patient request if the prescription is for a schedule II opioid drug., 170, cm, 09/24/24 13:13:00 EST, Height, 90, kg, 09/17/24 14:13:00 EST,Dry Weight Start Date: 09/24/24 Stop Date: 10/08/24 Status: Ordered Quantity: 126.0 Unit: tablet Repeat number: 1 Albuterol (Eqv-Ventolin HFA) 90 mcg/inh inhalation aerosol 2 puffs, Inhalation, Every 6 hours, # 1 each, 11 Refills, Maintenance, 10/08/23 4:02:00 PM EST, [id number], Partial fill upon patient request if the [...] Date: 03/21/23 Status: Ordered Repeat number: 1 cephalexin monohydrate 500 mg oral capsule 2 capsule = 1,000 mg, By Mouth, 3 times a day, for 8 days, # 48 capsule, 0 Refills, Acute 10/02/24 2:53:00 PM EST, 09/24/24 2:53:00 PM EST, Capsule, [facility]/pharmacy #[id number], Partial fill upon patient request if the prescription is for a schedule II opioid drug., 170, cm, 09/24/24 13:13:00 EST, Height, 90, kg, 09/17/24 14:13:00 EST, Dry Weight Start Date: 09/24/24 Stop Date: 10/02/24 Status: Ordered Quantity: 48.0 Unit: capsule Repeat number: 1 cloNIDine 0.1 mg oral tablet 0.1 mg, 1, tablet, By Mouth, Daily at bedtime Start Date: 09/17/24 Status: Ordered Repeat number: 1 colchicine 0.6 mg oral tablet 0.6 mg, 1, tablet, By Mouth, Daily, # 7 tablet, Refills 0, Tot. Refills 0, Maintenance, 09/24/24 2:54:00 PM EST, Route to Pharmacy Electronically, [facility]/pharmacy #[id number], Partial fill upon patient request if the prescription is for a schedule II opioid drug., 170, cm, 09/24/24 13:13:00 EST, Height, 90,kg, 09/17/24 14:13:00 EST, Dry Weight Start Date: 09/24/24 Stop Date: 10/01/24 Status: Ordered Quantity: 7.0 Unit: tablet Repeat number: 1 CPAP [employer], 05/22/23 6:56:00 PM EDT, Supply Start Date: 05/22/23 Status: Ordered Repeat number: 1 gabapentin 100 mg oral capsule 100 mg, 1, capsule, By Mouth, 3 times a day, # 42 capsule, Refills 0, Tot. Refills 0, Maintenance, 09/24/24 2:55:00 PM EST, Route to Pharmacy Electronically, [facility]/pharmacy #[id number], Partial fill upon patient request if the prescription is for a schedule II opioid drug., 170, cm, 09/24/24 13:13:00 EST, Height, 90, kg, 09/17/24 14:13:00 EST, Dry Weight Start Date: 09/24/24 Stop Date: 10/08/24 Status: Ordered Quantity: 42.0 Unit: capsule Repeat number: 1 gabapentin 100 mg oral capsule 100 mg, Capsule, By Mouth, 09/24/24 3:00:00 PM EST Start Date: 09/24/24 Stop Date: 09/24/24 Status: Completed Repeat number: 1 isosorbide mononitrate 30 mg oral tablet, extended release 30 mg, By Mouth, Daily, # 30 tablet, Refills 0, Tot. Refills 0, Maintenance, 09/24/24 2:55:00 PM EST, Route to Pharmacy Electronically, [facility]/pharmacy #[id number], Partial fill upon patient request if the prescription is for a schedule II opioid drug., 170, cm, 09/24/24 13:13:00 EST, Height, 90, kg, 09/17/24 14:13:00 EST, Dry Weight Start Date: 09/24/24 Stop Date: 10/24/24 Status: Ordered Quantity: 30.0 Unit: tablet Repeat number: 1 lidocaine 0.5% topical gel 1 application, Topically, 3 times a day, for 14 days, # 120 Gm, 0 Refills, Acute 10/08/24 2:57:00 PM EST, 09/24/24 2:57:00 PM EST, Gel, [facility]pharmacy #[id number], Partial fill upon patient request if the prescription is for a schedule II opioid drug., 1 application Topically 3 times a day,x14 days, 170, cm, 09/24/24 13:13:00 EST, Height, 90, kg, 09/17/24 14:13:00 EST, Dry Weight Start Date: 09/24/24 Stop Date: 10/08/24 Status: Ordered Quantity: 120.0 Unit: g Repeat number: 1 Melatonin 1 mg oral tablet TAKE 1 TO 3 TABLETS BY MOUTH AT BEDTIME FOR SLEEP Start Date: 09/17/24 Status: Ordered Repeat number: 1 oxyCODONE 5 mg oral tablet 5 mg, 1, tablet, By Mouth, Every 6 hours, PRN, for 7 days, # 28 tablet, Refills 0, Tot. Refills 0, Acute 10/01/24 2:56:00 PM EST, Pain , Severe, 09/24/24 2:56:00 PM EST, Route to Pharmacy Electronically, [facility]/pharmacy #[id number], Partial fill upon patient request if the prescription is for a schedule II opioid drug., 170, cm, 09/24/24 13:13:00 EST, Height, 90, kg, 09/17/24 14:13:00 EST, Dry Weight Start Date: 09/24/24 Stop Date: 10/01/24 Status: Ordered Quantity: 28.0 Unit: tablet Repeat number: 1 spironolactone 25 mg oral [...] Replace Required Details, Route to Pharmacy Electronically, [id number], [id number], 169, cm, 08/28/24 10:25:00 EDT, Height, 95.9, kg, 05/12/24 13:50:00 EDT, Dry Weight Start Date: 09/11/24 Status: Ordered Quantity: 11.0 Unit: g Repeat number: 1 Tums 500 mg oral tablet, chewable 500 mg, 1, tablet, Chew, Daily, PRN, Refills 0, Maintenance, as needed, 09/17/24 12:53:00 PM EST, Partial fill upon patient request if the prescription is for a schedule II opioid drug. 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 Infection seeding; Clinical Question(s): Disc Space Infection; Order Comment: Please see Reference Text for complete list of contraindications Disc Space Infection TECHNIQUE: MRI of the cervical spine was performed with and without intravenous contrast utilizing sagittal T1, sagittal T2, sagittal STIR, axial T1, and fat- saturated axial T2-weighted sequences, and post-contrast sagittal T1 and fat- saturated axial T1-weighted sequences. 19 mL of Prohance was administered intravenously. COMPARISON: Cervical CT on 09/17/2024. FINDINGS: LOCALIZER: No additional findings on limited localizer images. ALIGNMENT, VERTEBRAE, MARROW, AND DISCS: There are normal cervical lordosis is lost. There is a minimal anterolisthesis of C4 over C5 and C7 over T1. No vertebral body fractures seen. The bone marrowsignals are within normal limits. Anterior osteophytes are seen from C4-C5 to C6-C7 levels more prominent at C6-C7 level. C4-C5 and C5-C6 levels have disc space narrowing and degenerative endplate changes. No abnormal enhancement is noted within the disc space or vertebral bodies. There is no epidural empyema. POSTERIOR FOSSA AND CORD: Visualized posterior fossa is normal. The cervical cord is normal in signal and caliber. There is no abnormal enhancement. PARASPINAL TISSUES: Soft tissues of the neck are unremarkable. Major cervical flow voids are present. C2-C3 level has no disc herniation, stenosis or neuroforamen narrowing. There is mild left-sided degenerative facet arthropathy. C3-C4 level has a small central disc protrusion with annulus tear. No stenosis. Mild uncovertebral joint osteophytes are seen bilaterally causing mild neuroforamen narrowing. C4-C5 level has a small broad-based central to the right disc protrusion. The right ventral subarachnoid space is effaced with mild indentation of the right ventral aspect cord. There is still a small amount of CSF space posterior to the cord without cord compression. Mild uncovertebral joint osteophytes are seen bilaterally causing mild right and minimal left neural from narrowing. C5-C6 level has a mild posterior osteophyte/disc bulge effacing the ventral subarachnoid space. No cord compression. There are uncovertebral joint osteophytes bilaterally, more on right. Moderate right and mild left neural from narrowing C6-C7 there is mild posterior osteophyte/disc bulge. No stenosis. Mild uncovertebral joint osteophytes are seen bilaterally causing mild to moderate neuroforamen narrowing. C7-T1 level has a minimal disc bulge. No stenosis. Mild left neuroforamen narrowing. IMPRESSION: No evidence of osteomyelitis, discitis or epidural empyema. The cervical cord is normal. No abnormal enhancement. There is no cord compression. Multiple levels of cervical spondylosis as described. WSN: [id number] Ordering Physician: Amy Renteria Dictated By: Artemio Kendrick MD Dictated Date/Time: 09/24/24 11:58 a Reviewed By: Artemio Kendrick MD Signed By: Artemio Kendrick MD Signed Date/Time: 09/24/24 11:58 am Transcribed By: WALLY Transcribed Date/Time: 09/24/24 11:57 am * Exam Date Time Procedure Performing Provider Status 09/23/24 7:34 PM US Extremity Non-Vas cular Left Limited Pen , Steph; Auth (Verified) Notes: (US Extremity Non-Vascular Left Limited) Reason For Exam: Lt Hand over 1st and 2nd metacarpal bone;Erythema RESULT: US Extremity Non-Vascular Left Limited US Extremity Non-Vascular Left Limited Reason: Erythema; Lt Hand over 1st and 2nd metacarpal bone; Clinical Question(s): Abscess COMPARISON: None. FINDINGS: High-resolution, linear array imaging of the superficial soft tissues of the left hand dorsally wasperformed in the area of the patient's symptoms. There is no sonographically apparent mass or fluid collection. Subcutaneous fluid identified. IMPRESSION: No drainable fluid collection identified. Subcutaneous fluid consistent with edema or cellulitis. WSN: [id number] Ordering Physician: Helder Gruber Dictated By: Austen Horton MD Dictated Date/Time: 09/23/24 8:33 pm Reviewed By: Austen Horton MD Signed By: Austen Horton MD Signed Date/Time: 09/23/24 8:33 pm Transcribed By: WALLY Transcribed Date/Time: 09/23/24 8:33 pm * Exam Date Time Procedure Performing Provider Status 09/23/24 7:34 PM US Doppler Ext Upper Venous Left Steph Deal; Mack (Verified) Notes: (US Doppler Ext Upper Venous Left) Reason For Exam: Pain/Tenderness Extremities RESULT: US Doppler Ext Upper Venous Left US Doppler Ext Upper Venous Left Reason: Pain Tenderness Extremities; Clinical Question(s): Thrombosis COMPARISON: None. IMAGING TECHNIQUE: Ultrasound examination of the upper extremity deep venous system was performed using grayscale, color, and spectral wave analysis including response to compression. Assessment includes the contralateral jugular and subclavian vein. FINDINGS: Internal jugular vein: Patent. No thrombosis. Subclavian vein: Patent. No thrombosis. Axillary vein: Patent. No thrombosis. Brachial vein: Patent. No thrombosis. Basilic vein: Patent. No thrombosis. Cephalic vein: Not well visualized due to swelling in the antecubital fossa. Contralateral internal jugular vein: Patent. No thrombosis. Contralateral subclavian vein: Patent. No thrombosis. IMPRESSION: Limited evaluation of the cephalic vein due to edema in the antecubital fossa. Otherwise no evidence of left upper extremity deep venous thrombosis. WSN: [id number] Ordering Physician: Helder Gruber Dictated By: Kady Del Rosario MD Dictated Date/Time: 09/23/24 8:04 pm Reviewed By: Kady Del Rosario MD Signed By: Kady Del Rosario MD Signed Date/Time: 09/23/24 8:04 pm Transcribed By: WALLY Transcribed Date/Time: 09/23/24 8:03 pm * Exam Date Time Procedure Performing Provider Status 09/20/24 9:57 AM Hand Min 3 Views Left Fely Diaz ; Auth (Verified) Notes: (Hand Min 3 Views Left) Reason For Exam: Pain RESULT: Hand Min 3 Views Left Hand Min 3 Views Left, 3 views REASON: Pain; Clinical Question(s): Arthritis COMPARISON: None. FINDINGS: No fractures or bone lesions. No arthritic changes. Normal soft tissues. IMPRESSION: No evidence of acute osseous abnormality. WSN: [id number] Ordering Physician: Amy Renteria Dictated By: Gerson Begum MD Dictated Date/Time: 09/20/24 11:24 a Reviewed By: Gerson Begum MD Signed By: Gerson Begum MD Signed Date/Time: 09/20/24 11:24 am Transcribed By: WALLY Transcribed Date/Time: 09/20/24 11:24 am * Exam Date Time Procedure Performing Provider Status 09/17/24 9:[address] Abd/Pelvis W/ IV Contrast Only Karen Guerrero; Mack (Verified) Notes: (CT Abd/Pelvis W/ IV Contrast Only) Reason For Exam: LLQ abdominal pain;Other: RESULT: CT Abd/Pelvis W/ IV Contrast Only CT Abd/Pelvis W/ IV Contrast Only Reason: Left lower quadrant abdominal pain TECHNIQUE: Spiral CT through the abdomen and pelvis with IV contrast formatted in 3 planes. 100 cc of Isovue 300 was administered intravenously. This study was performed without oral contrast. Weight-based protocol using automatic tube modulation was used to optimize exposure parameters. CTDIvol Body: 13.58 mGy, DLP Body: 1862 mGy*cm. COMPARISON: Chest CTA 09/17/2024 FINDINGS: Fitness Floor Attendant View Findings, Lines and Tubes: Pacemaker and TAVR postsurgical sequela. Visualized Chest: Lung bases are clear. No pleural effusion. The heart is normal in size. No pericardial effusion. Diaphragm: Normal. Liver: Normal. Gallbladder: Cholelithiasis with 1 cm gallstones in contracted gallbladder. Bile ducts: No biliary ductal dilation. Spleen: Normal. Pancreas: Normal. Adrenal glands: Normal. Kidneys and ureters: No hydronephrosis, stones, or suspicious masses. Bilateral peripelvic renal cysts. Bladder: Normal. Reproductive organs: Unremarkable. Stomach, small bowel, and large bowel: Normal stomach small bowel and proximal colon. There is descending and sigmoid colon diverticulosis with focal inflammatory changes in the proximal sigmoid colon suggesting acute diverticulitis without free air or abscess collection. Appendix: Not seen, but no evidence of appendicitis. Peritoneum and retroperitoneum: No ascites or pneumoperitoneum. No omental or mesenteric lesions. Lymph nodes: No enlarged lymph nodes. Blood vessels: Mild vascular calcifications but no aneurysm. No evidence of venous thrombosis. Abdominal and pelvic wall: Unremarkable. Bones: No acute abnormality. IMPRESSION: Acute proximal sigmoid colon diverticulitis without free air or abscess collection. Findings sent to Esther Leary MD via [employer] 09/17/2024 9:51 AM WSN: [id number] Ordering Physician: Esther Leary Dictated By: Vinnie Steele MD Dictated Date/Time: 09/17/24 9:52 am Reviewed By: Vinnie Steele MD Signed By: Vinnie Steele MD Signed Date/Time: 09/17/24 9:52 am Transcribed By: WALLY Transcribed Date/Time: 09/17/24 9:46 am * Exam Date Time Procedure Performing Provider Status 09/17/24 9:[address] Angio Chest Karen Guerrero; Auth (Verified) Notes: (CT Angio Chest) Reason For Exam: PE suspected, Intermediate prob, positive D-dimer;Other: RESULT: CT Angio Chest EXAMINATION: CT Angio Chest INDICATION: SOB; Reason: PE suspected, Intermediate prob, positive D-dimer TECHNIQUE: Spiral CTA of the chest was performed after rapid IV contrast administration without cardiac gating, triggered by an CHAYITO on the main pulmonary artery. Images are formatted in multiple planes using 2-D multiplanar and 3-D maximum intensity projection. 100 cc of Isovue 300 was administered intravenously. Weight-based protocol using automatic tube modulation was used to optimize exposure parameters. CTDIvol Body: 13.58 mGy, DLP Body: 1862 mGy*cm. COMPARISONS: 10/17/2017 ANGIOGRAPHIC FINDINGS: No pulmonary embolism to the subsegmental level. Normal caliber pulmonary arteries. No acute aortic abnormality seen on this study performed without cardiac gating. NON-ANGIOGRAPHIC FINDINGS: Fitness Floor Attendant View Findings, Lines and Tubes: Dual-lead left-sided pacemaker.. Trachea and Airways: Patent without evidence of tracheal or endobronchial lesion Lungs and Pleura: Clear lungs. No effusion or pneumothorax. Mediastinum and ellen: No mass or hematoma. No mediastinal or hilar lymphadenopathy. No esophageal abnormality. Normal thyroid. Heart: Heart is normal in size. No pericardial effusion. TAVR postsurgical sequela. Chest Wall Soft Tissues: Normal. Diaphragm and upper abdomen: No significant abnormality. Bones: No acute abnormality. IMPRESSION: No evidence of pulmonary embolism. Clear lungs. Interval pacemaker and TAVR postsurgical sequela. WSN: [id number] Ordering Physician: Esther Leary Dictated By: Vinnie Steele MD Dictated Date/Time: 09/17/24 9:32 am Reviewed By: Vinnie Steele MD Signed By: Vinnie Steele MD Signed Date/Time: 09/17/24 9:32 am Transcribed By: WALLY Transcribed Date/Time: 09/17/24 9:26 am * Exam Date Time Procedure Performing Provider Status 09/17/24 9:[address] Cervical Spine W/O Contrast Karen Guerrero; Auth (Verified) Notes: (CT Cervical Spine W/O Contrast) Reason For Exam: Neck trauma, dangerous injury mechanism;Other: RESULT: CT Cervical Spine W/O Contrast CT Head/Brain W/O Contrast, CT Cervical Spine W/O Contrast INDICATION: Hx of Present Illness: SOB; Reason: Trauma; Clinical Question(s): Hematoma; Order Comment: TECHNIQUE: Noncontrast head CT using axial technique was reconstructed in axial and coronal planes.Noncontrast spiral CT through the cervical spine was formatted in 3 planes. Automatic tube modulation was used for the cervical spine and iterative dose reconstruction was used for both the head and cervical spine to optimize scan parameters and image quality. COMPARISON: CT head 05/24/2023 FINDINGS: Fitness Floor Attendant View Findings, Lines and Tubes: Partially visualized implanted pacemaker. BRAIN AND EXTRA-AXIAL SPACES: No parenchymal hemorrhage, midline shift, or mass effect. Fernandez-white matter differentiation is wellpreserved. No acute infarct. Negative insular ribbon sign. Atherosclerotic vascular calcification of the carotid arteries but negative hyperdense vessel sign. Ventricles, sulci, and basilar cisterns are normal. Mild low-density white matter changes. No subarachnoid hemorrhage. No subdural or epidural collection. CALVARIUM, SKULL BASE, AND SOFT TISSUES: No fractures or suspicious bony lesions. The paranasal sinuses and mastoid air cells are clear. Visualized orbits and globes are intact. The extracranial soft tissues are unremarkable. CERVICAL SPINE: No fracture. No acute osseous abnormalities. Normal alignment. No locked or perched facet. Mild multilevel degenerative disc space narrowing andend plate irregularity. OTHER BONES: No acute abnormality. CERVICAL SOFT TISSUES AND LUNG APICES: Normal soft tissues. Visualized lung apices are clear. IMPRESSION: 1. No evidence of acute intracranial abnormality. 2. No evidence of acute fracture or dislocation of the cervical spine. WSN: [id number] Ordering Physician: Esther Leary Dictated By: Gerson Begum MD Dictated Date/Time: 09/17/24 9:22 am Reviewed By: Gerson Begum MD Signed By: Gerson Begum MD Signed Date/Time: 09/17/24 9:22 am Transcribed By: WALLY Transcribed Date/Time: 09/17/24 9:19 am * Exam Date Time Procedure Performing Provider Status 09/17/24 9:[address] Head/Brain W/O Contrast Veronica Guerrero llscot; Auth (Verified) Notes: (CT Head/Brain W/O Contrast) Reason For Exam: Trauma RESULT: CT Head/Brain W/O Contrast CT Head/Brain W/O Contrast, CT Cervical Spine W/O Contrast INDICATION: Hx of Present Illness: SOB; Reason: Trauma; Clinical Question(s): Hematoma; Order Comment: TECHNIQUE: Noncontrast head CT using axial technique was reconstructed in axial and coronal planes.Noncontrast spiral CT through the cervical spine was formatted in 3 planes. Automatic tube modulation was used for the cervical spine and iterative dose reconstruction was used for both the head and cervical spine to optimize scan parameters and image quality. COMPARISON: CT head 05/24/2023 FINDINGS: Fitness Floor Attendant View Findings, Lines and Tubes: Partially visualized implanted pacemaker. BRAIN AND EXTRA-AXIAL SPACES: No parenchymal hemorrhage, midline shift, or mass effect. Fernandez-white matter differentiation is wellpreserved. No acute infarct. Negative insular ribbon sign. Atherosclerotic vascular calcification of the carotid arteries but negative hyperdense vessel sign. Ventricles, sulci, and basilar cisterns are normal. Mild low-density white matter changes. No subarachnoid hemorrhage. No subdural or epidural collection. CALVARIUM, SKULL BASE, AND SOFT TISSUES: No fractures or suspicious bony lesions. The paranasal sinuses and mastoid air cells are clear. Visualized orbits and globes are intact. The extracranial soft tissues are unremarkable. CERVICAL SPINE: No fracture. No acute osseous abnormalities. Normal alignment. No locked or perched facet. Mild multilevel degenerative disc space narrowing andend plate irregularity. OTHER BONES: No acute abnormality. CERVICAL SOFT TISSUES AND LUNG APICES: Normal soft tissues. Visualized lung apices are clear. IMPRESSION: 1. No evidence of acute intracranial abnormality. 2. No evidence of acute fracture or dislocation of the cervical spine. WSN: [id number] Ordering Physician: Esther Leary Dictated By: Gerson Begum MD Dictated Date/Time: 09/17/24 9:22 am Reviewed By: Gerson Begum MD Signed By: Gerson Begum MD Signed Date/Time: 09/17/24 9:22 am Transcribed By: WALLY Transcribed Date/Time: 09/17/24 9:19 am Vital Signs Most recent to oldest [Reference Range]: 1 2 3 Height 170 cm (09/24/24 3:27 PM) 170 cm (09/24/24 1:13 PM) 170 cm (09/24/24 9:15 AM) Weight 93 kg (09/17/24 2:13 PM) 88.5 kg (09/17/24 9:53 AM) 88.5 kg (09/17/24 6:51 AM) Oxygen Saturation [94-100 %] 100 % (09/24/24 3:27 PM) 99 % (09/24/24 1:13 PM) 97 % (09/24/24 9:15 AM) Pulse Rate [55-90 bpm] 102 bpm *H* (09/24/24 3:27 PM) 82 bpm (09/24/24 1:13 PM) 100 bpm *H* (09/24/24 9:15 AM) Body Mass Index [18.5-24.99 kg/m2] 32.18 kg/m2 *>HHI* (09/17/24 2:13 PM) 30.62 kg/m2 *>HHI* (09/17/24 9:53 AM) Blood Pressure [90-138/55-84 mm Hg] 165/85mm Hg *H* (09/24/24 1:13 PM) 150/76mm Hg *H* (09/24/24 9:15 AM) 152/70mm Hg *H* (09/24/24 3:00 AM) Respiratory Rate [16-30 br/min] 20 br/min (09/24/24 3:27 PM) 18 br/min (09/24/24 1:19 PM) 20 br/min (09/24/24 1:13 PM) Temperature [96.8-100.4 DegF] 98.2 DegF (09/24/24 3:27 PM) 97.5 DegF (09/24/24 1:13 PM) 97.5 DegF (09/24/24 9:15 AM) Liters per Minute 3 L/min (09/18/24 8:00 AM) 3 L/min (09/18/24 7:00 AM) Mode of Delivery (Oxygen) Room air (09/24/24 3:27 PM) Room air (09/24/24 1:13 PM) Room air (09/24/24 9:15 AM) Blood pressure sites Leg, left (09/24/24 1:13 PM) Leg, left (09/24/24 9:15 AM) Arm, right (09/24/24 3:00 AM) Temperature Route Oral (09/24/24 3:27 PM) Oral (09/24/24 1:13 PM) Oral (09/24/24 9:15 AM) Dry Weight 90 kg (09/17/24 2:13 PM) 88.5 kg (09/17/24 9:53 AM) 88.5 kg (09/17/24 6:51 AM) Social History Social History Type Response Smoking Status Former smoker, quit more than 30 days ago; Type: Cigarettes; Type: Pipe; Tobacco use times per day: less than cigg a week, mostly pipe; Started at age: 16; Stopped at age: 31; entered on: 05/23/22 Sex Sex Representation Male (finding) History and physical note * Remington ROCA, Leah: MODIFY, PERFORM, MODIFY Event Display: History and Physical Hospital Authored Date: Patient: ??EMMYCAPO WATERS ? Age:??74 Years?Sex:??Male?:??1950?? Chief Complaint/Reason for Consultation pt coming from home . pt has been having chills, fatigue, breathlessness, lack of apetite for couple weeks. RLQ abdomen pain in last couple weeks. diarrhea last 2 days. Fell this morning ??out of bed. Had trouble breathing d/t asthma. called. History of Present Illness Date of exam: 09/17/2024 ?? 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 ?? He states he has lost about 12 pounds weight in the last 2 months, and has become more fatigued anddeconditioned and this time.?? He was seen by his PCP on 09/04 for?? fatigue and weight loss, CBC with differential and PSA was done at the time, no specific findings.?? Complains of worsening shortness of breath, no cough or fever.?? Does have intermittent chills.?? No night sweats.?? Has mild and diffuse abdominal pain, achy, intermittent, not related to p.o. intake, no aggravating or relieving factors, not associated with nausea, vomiting. Has diarrhea since yesterday, lots of gas, no blood in stools or dark colored stools.?? He got out of bed this morning and was trying to sit up when he rolled off the bed and got stuck between the bed and the dresser, falling on his left shoulder.?? Denies hitting his head.?? called EMS and he was brought here.?? No chest pain or palpitations.?? No dizziness or lightheadedness.?? No extremity weakness, numbness or tingling. ?? In the ED, afebrile, hemodynamically stable and saturating well on room air. Labs: Significant leukocytosis with WBC count 29.5, predominantly neutrophilic, H&H 11.6/34.1.?? INR 1.1.?? D-dimer elevated at 3.33.?? Mild hyponatremia with sodium 131, BUN/creatinine 39/1.59.?? Glucose levels elevated at 137.?? LFTs showing slightly elevated AST and ALT at 56.?? proBNP elevated at 1264.?? Initial troponin elevated at 63, subsequently lowered 46.?? COVID-19 negative.?? TSH normal at 2.82. Imaging studies: CT scan of the head and cervical spine: No evidence of acute intracranial abnormality or fractures CT angiogram of the chest: No evidence of PE, clear lungs, interval pacemaker and TAVR postsurgicalsequela CT scan of the abdomen and pelvis with contrast: Acute proximal sigmoid colon diverticulitis without free air or abscess collection EKG: Normal sinus rhythm, no acute ST-T changes ?? Received ceftriaxone and Flagyl and admitted for further management of acute diverticulitis. ?? During my exam, feels okay. Breathing labored while talking, able to finish sentences with effort.?? Rest of ROS negative. Review of Systems Constitutional:??Chills HEENT: No headache, rhinorrhea, difficulty swallowing, blurry vision Cardiovascular: No chest pain Respiratory:??Shortness of breath GI: No nausea, no vomiting, diffuse abdominal pain, diarrhea Neuro: No weakness, numbness, tingling in extremities Psych: No acute behavioral changes Muscular skeletal: No joint or muscle pain Endocrine: Weight loss of 12 pounds over the last??2 months : No dysuria or hematuria Objective Vital Signs?? Temperature: 97.5 DegF (09/17/24 14:13:00) Temperature Route: Oral (09/17/24 14:13:00) Pulse Rate: 73 bpm (09/17/24 14:13:00) Respiratory Rate: 22 br/min (09/17/24 14:13:00) Systolic Blood Pressure: 129 mm Hg (09/17/24 14:13:00) Diastolic Blood Pressure: 64 mm Hg (09/17/24 14:13:00) Blood pressure sites: Arm, left (09/17/24 14:13:00) Mean Arterial Pressure: 86 mm Hg (09/17/24 14:13:00) Pulse Pressure: 65 mm Hg (09/17/24 14:13:00) Oxygen Saturation: 100 % (09/17/24 14:13:00) Mode of Delivery (Oxygen): Room air (09/17/24 14:13:00) Early Warning Score: 8 (09/17/24 14:15:24) ? 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 Diverticulitis (K57.92) Sepsis (A41.9) ? Reviewed CT scan of the abdomen and pelvis,??showing??Acute proximal sigmoid colon diverticulitis without free air or abscess collection ?? Meets sepsis criteria??with fever,??tachycardia, leukocytosis??and known source of infection Received ceftriaxone and Flagyl in the ED, will continue this antibiotics Continue clear liquid diet Pain control with as needed morphine As needed Zofran for nausea and vomiting Continue serial abdominal exams Trend WBC curve ?? LISA (acute kidney injury) (N17.9):??BUN/creatinine 39/1.59, 1 year ago creatinine was 1.1 and last month it was 1.31. Acute kidney injury likely related to underlying acute diverticulitis Continue IV hydration Avoid nephrotoxic medications, renally dose all meds Recheck labs in a.m. Monitor kidney function closely and if does not improve, consider nephrology consult ?? Shortness of breath (R06.02 Moderate persistent asthma:??Patient has been feeling increasing shortness of breath for the last 2months.?? He does have history of moderate persistent asthma.??No wheezing on exam today. He has labored breathing even while having conversation, barely able to finish sentences His carvedilol was recently discontinued by his data systems manager??as they thought it would??be causing??bronchospasm.??This was changed to Bystolic It is unclear to me why he is??so short of breath.??At rest, he saturating well on room air Please consult pulmonology in a.m. for further evaluation and recommendations ?? Hyperglycemia with elevated HbA1c: Patient not a known diabetic.?? Blood glucose??in the 120s. ??HbA1c done, at 6%.?? Continue to monitor POC's??and??provide sliding scale coverage. ??Needs diabetes education??prior to discharge??and??close outpatient follow-up ?? Gout (M10.9):??Continue allopurinol ?? HTN (hypertension) (I10):??Continue spironolactone, clonidine. Carvedilol was recently discontinuedadn??bystolic was started. BP on the??softer side, holding this med, continue to monitor BP, resumewhen appropriate ?? MANNY - Obstructive sleep apnea (G47.33):??On CPAP ?? 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 Imaging studies??fairly nonrevealing I will add??inflammatory/autoimmune workup, follow-up with results ?? VTE Prophylaxis:??Lovenox ?VTE Prophylaxis Assessment:??VTE Prophylaxis Ordered ?? Discharge Planning:??Pending clinical improvement ?? Code Status:??Full code ?Order Code Status:??Code Status Ordered ? Estimated Discharge Date ?? 09/19/2024 Histories Allergies Allergies ?(Active and Proposed Allergies Only) amLODIPine? (Severity: Moderate, Onset: Unknown) ?Reactions: Feeling tired diltiazem? (Severity: Unknown severity, Onset: Unknown) ?Reactions: edema losartan? (Severity: Unknown severity, Onset: Unknown) ?Reactions: chest pain erythromycin? (Severity: Unknown severity, Onset: Unknown) ?Reactions: gi cramps lisinopril? (Severity: Unknown severity, Onset: Unknown) ?Reactions: [D]Cough penicillin? (Severity: Unknown severity, Onset: Unknown) ?Reactions: Rash ? 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 Past Surgical History Cardiac pacemaker ([place] left bundle): 05/20/23 TAVR - Transcatheter aortic valve replacement: 07/21/20 Angiography of coronary arteries: 06/24/20 Cataracts: 2018 Colonoscopy: 2012 Appendectomy: 1968 Bilateral Shoulder (10 years apart) ? Social History Alcohol Details:??Use: Past. ??Frequency: 1-2 times per week. 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 Exercise Details:??Regular exercise: No. Home/Environment Details:??Living situation: Home/Independent. ??Lives with: : Amy. Nutrition/Health Details:??Diet: Regular. ??Other: No processed meat. ??Caffeine intake amount: 16 oz coffee daily. Sexual Details:??Sexually involved in last 6 months: No. Substance Abuse Details:??Use: Never. Tobacco Details:??Use: Former smoker, quit more than 30 days ago. ??Type: Cigarettes, Pipe. ??Tobacco use times per day: less than cigg a week, mostly pipe. ??Started at age: 16 Years. ??Stopped at age: 31 Years. Electronic Cigarette/Vaping Details:??Electronic Cigarette Use: Never. ? Family History Mother??(): Hypertension; Pacemaker rhythm Father??(): Atrial fibrillation; Hypertension Pat. Grandmother??(): Heart Pat. Grandfather??(): Heart ? Medications Home Medications Albuterol (Albuterol (Eqv-Ventolin HFA) 90 mcg/inh inhalation aerosol)?2?puff(s)?Inhalation?Every 6 hours Aspirin (aspirin 81 mg oral capsule)?1?capsule?81?Milligram?By Mouth?Every 4 hours Budesonide-Formoterol (Symbicort 160mcg/4.5mcg Inhaler)?See Instructions?Inhale 2 puffs by mouth twice daily Calcium Carbonate (Tums 500 mg oral tablet, chewable)?500?Milligram?1?tablet?Chew?Daily?as needed?as needed Carvedilol (carvedilol 12.5 mg oral tablet)?TAKE 1 TABLET BY MOUTH TWICE DAILY IN ADDITION TO 6.25 MG TWICE DAILY Carvedilol (carvedilol 6.25 mg oral tablet)?6.25?Milligram?1?tablet?By Mouth?2 times a day Clonidine (cloNIDine 0.1 mg oral tablet)?0.1?Milligram?1?tablet?By Mouth?Daily atbedtime Melatonin (Melatonin 1 mg oral tablet)?TAKE 1 TO 3 TABLETS BY MOUTH AT BEDTIME FOR SLEEP Spironolactone (spironolactone 25 mg oral tablet)?tablet?25?Milligram?1?By Mouth?Daily ? Results Recent Labs BLOOD COUNT & DIFF WBC 29.5 k/mm3 (High)?? 09/17/2024 07:40 RBC 3.82 m/mm3 (Low)?? 09/17/2024 07:40 Hgb 11.6 Gm/dL (Low)?? 09/17/2024 07:40 Hct 34.1 % (Low)?? 09/17/2024 07:40 MCV 89.3 femtoliters ()?? 09/17/2024 07:40 MCH 30.4 pg ()?? 09/17/2024 07:40 MCHC 34.0 Gm/dL ()?? 09/17/2024 07:40 Platelet Count 268 k/mm3 ()?? 09/17/2024 07:40 RDW-SD 40.1 femtoliters ()?? 09/17/2024 07:40 MPV 9.7 femtoliters ()?? 09/17/2024 07:40 Nucleated RBC (Automated) 0.0 #/100 WBC'S ()?? 09/17/2024 07:40 Abs. NRBC 0.0 k/mm3 ()?? 09/17/2024 07:40 Abs. Neut 26.1 k/mm3 (High)?? 09/17/2024 07:40 Abs. Lymph 0.9 k/mm3 ()?? 09/17/2024 07:40 Abs. Page 1.7 k/mm3 (High)?? 09/17/2024 07:40 Abs. Eo 0.0 k/mm3 ()?? 09/17/2024 07:40 Abs. Baso 0.1 k/mm3 ()?? 09/17/2024 07:40 Neut % 88.6 % (High)?? 09/17/2024 07:40 Lymph % 3.0 % (Low)?? 09/17/2024 07:40 Page % 5.8 % ()?? 09/17/2024 07:40 Eos % 0.0 % ()?? 09/17/2024 07:40 Baso % 0.2 % ()?? 09/17/2024 07:40 Imm Gran 2.4 % ()?? 09/17/2024 07:40 Abs. Imm Gran 0.7 k/mm3 ()?? 09/17/2024 07:40 ?? CARDIAC Nt-Probnp 1264 pg/mL (High)?? 09/17/2024 07:40 High Sensitivity Troponin (HSTnT) 43 ng/L (High)?? 09/17/2024 17:37 ?? CHEM GENERAL Sodium 131 mmol/L (Low)?? 09/17/2024 07:40 Potassium 4.7 mmol/L ()?? 09/17/2024 07:40 Chloride 98 mmol/L ()?? 09/17/2024 07:40 Bicarbonate Level 16 mmol/L (Low)?? 09/17/2024 07:40 Anion Gap 17 ()?? 09/17/2024 07:40 Glucose Level 137 mg/dL (High)?? 09/17/2024 07:40 BUN 39 mg/dL (High)?? 09/17/2024 07:40 Creatinine-Blood 1.59 mg/dL (High)?? 09/17/2024 07:40 Estimated GFR Creatinine 45 ML/MIN/1.73 M2 ()?? 09/17/2024 07:40 Calcium 9.0 mg/dL ()?? 09/17/2024 07:40 Magnesium 1.8 mg/dL ()?? 09/17/2024 07:40 Protein, Total 7.3 Gm/dL ()?? 09/17/2024 07:40 Albumin 3.3 Gm/dL (Low)?? 09/17/2024 07:40 AG Ratio 0.8 ()?? 09/17/2024 07:40 Alkaline Phosphatase 90 units/L ()?? 09/17/2024 07:40 Lipase 30 units/L ()?? 09/17/2024 07:40 AST (SGOT) 56 units/L (High)?? 09/17/2024 07:40 ALT (SGPT) 56 units/L (High)?? 09/17/2024 07:40 Bilirubin, Total 1.0 mg/dL ()?? 09/17/2024 07:40 Lactate 1.3 mmol/L ()?? 09/17/2024 07:40 ?? COAG INR 1.1 ()?? 09/17/2024 07:40 Protime (PT) 12.0 seconds (High)?? 09/17/2024 07:40 D-Dimer 3.33 mg/L FEU (High)?? 09/17/2024 07:40 ?? ENDOCRINE/TUMOR MARKER TSH 2.82 uIU/mL ()?? 09/17/2024 07:40 ?? STOOL STUDIES GI PCR, Campylobacter NEGATIVE (N)?? 09/17/2024 13:15 GI PCR, Plesiomonas shigelloides NEGATIVE (N)?? 09/17/2024 13:15 GI PCR, Salmonella NEGATIVE (N)?? 09/17/2024 13:15 GI PCR, Vibrio NEGATIVE (N)?? 09/17/2024 13:15 GI PCR, Vibrio cholerae NEGATIVE (N)?? 09/17/2024 13:15 GI PCR, Yersinia enterocolitica NEGATIVE (N)?? 09/17/2024 13:15 GI PCR, Enteroaggregative E coli NEGATIVE (N)?? 09/17/2024 13:15 GI PCR, Enteropathogenic E coli NEGATIVE (N)?? 09/17/2024 13:15 GI PCR, Enterotoxigenic E coli NEGATIVE (N)?? 09/17/2024 13:15 GI PCR, Arkca-lfpur-cruicoohr E coli NEGATIVE (N)?? 09/17/2024 13:15 GI PCR, Shigella/Enteroinvasive E coli NEGATIVE (N)?? 09/17/2024 13:15 GI PCR, Cryptosporidium NEGATIVE (N)?? 09/17/2024 13:15 GI PCR, Cyclospora cayetanensis NEGATIVE (N)?? 09/17/2024 13:15 GI PCR, Entamoeba histolytica NEGATIVE (N)?? 09/17/2024 13:15 GI PCR, Giardia lamblia NEGATIVE (N)?? 09/17/2024 13:15 GI PCR, Adenovirus F 40/41 NEGATIVE (N)?? 09/17/2024 13:15 GI PCR, Astrovirus NEGATIVE (N)?? 09/17/2024 13:15 GI PCR, Norovirus GI/GII POSITIVE (Abnormal)?? 09/17/2024 13:15 GI PCR, Rotavirus A NEGATIVE (N)?? 09/17/2024 13:15 GI PCR, Sapovirus NEGATIVE (N)?? 09/17/2024 13:15 ?? URINE OTHER Est Creatinine Clearance 38.01 mL/min ()?? 09/17/2024 08:28 ?? VIROLOGY COVID-19 by RT-PCR NEGATIVE ()?? 09/17/2024 07:47 ? Image ?12 Lead ECG??09/17/2024 07:23 by Jake Malagon MD ?CT Abd/Pelvis W/ IV Contrast Only??09/17/2024 09:16 by Karen Guerrero ?CT Cervical Spine W/O Contrast??09/17/2024 09:16 by Karen Guerrero ?CT Head/Brain W/O Contrast??09/17/2024 09:16 by Karen Guerrero ?CT Angio Chest??09/17/2024 09:16 by Karen Guerrero ? EKG study * Event Display: EKG Authored Date: * Event Display: ECG 12-Lead Authored Date: Please click on pdf link to open report * Event Display: ECG 12-Lead Authored Date: Ventricular Rate: 90 BPM Atrial Rate: 90 BPM P-R Interval: 166 ms QRS Duration: 138 ms Q-T Interval: 390 ms QTC Calculation(Bazett): 477 ms P [place]: 56 degrees R [place]: -66 degrees T [place]: 56 degrees Normal sinus rhythm Right bundle branch block Left anterior fascicular block Bifascicular block Minimal voltage criteria for LVH, may be normal variant ( R in aVL ) Septal infarct (cited on or before 28-Aug-2024) Abnormal ECG When compared with ECG of 28-Aug-2024 10:27, Questionable change in initial forces of Septal leads Confirmed by Jake Malagon ([id number]) on 09/17/2024 8:16:12 AM [place]: Jake Malagon Heart * Event Display: Echocardiogram - Complete Authored Date: Transthoracic Echocardiography Report (TTE) Patient Demographics Patient Name CAPO LINDSEY Date of Study 09/21/2024 Corporate Gender Male Facility Race .[id number] Ethnicity Date of 1950 Height: 66.93 inches Age 74 year(s) Weight: 205.03 pounds Accession Number [id number] BSA: 2.04 m2 Room Number [id number] BMI: 32.18 kg/m2 Referring [address] [place], [place] [address]AMY RENTERIA Interpreting Chaparrita Engle MD Physician Physician Software Engineering Project Manager [employer] [facility] Fellow Laura ROCA Risramona Indications Endocarditis. Clinical History MANNY HTN HLD CKD Pacemaker. TAVR Asthma. Study Data Type of Study TTE procedure:Echo Complete-(Doppler, Colorflow) with Contrast. Procedure Information:Definity was administered by Plumbing Hardware Assembler . Study Date09/21/2024 Start Time: 09:40 AM Study Location: [facility] Adult Echo Study Status: Echo lab Patient Status: Routine Technical Quality: Technically difficult due to poor acoustical window. Blood Pressure:138/72 mmHg EKG: Normal sinus rhythm HR: 93 bpm Contrast Medium: Definity. Amount - 2 ml Allergies - Diltiazem. - Erythromycin. - Lisinopril. - Penicillins. - Losartan. Doppler Measurements AV Peak Velocity: 248 cm/s AV Peak Gradient: 24.6 mmHg AV Mean Gradient: 13 mmHg MV Mean Gradient: 5.21 mmHg AV VTI:43.6 cm Cardiac Anatomy Left Ventricle/Interventricular Septum The left ventricle is poorly visualized however minimally improved with the use of echocontrast. The LV systolic function appears preserved. Cannot assess regional wall motion abnormalities. Unable to assess diastolic function . Left Atrium/Interatrial Septum The left atrium is poorly visualized. Aortic Valve The aortic valve is poorly visualized. There is a bioprosthetic valve (DIONTE S3 #23) in the aortic position. The mean gradient is 13 mmHg. There is no significant valvular or paravalvular leak. Image quality limits assessment. Mitral Valve The mitral valve is poorly visualized. There is mitral annular calcification. Aorta The aortic root and ascending aorta is poorly visualized. Right Ventricle The right ventricle is poorly visualized. A pacer/ICD wire is seen in the right ventricle. Right Atrium The right atrium is poorly visualized. Pulmonic Valve The pulmonic valve is poorly visualized. Tricuspid Valve The tricuspid valve is poorly visualized. Pumonary Artery An accurate pulmonary artery pressure could not be obtained. Venous Structures The inferior vena cava is poorly visualized. Pericardium/Extracardiac There is no significant pericardial effusion. Summary Cardiac structures are not well visualized. The left ventricle is poorly visualized however minimally improved with the use of echocontrast. The LV systolic function appears preserved. Cannot assess regional wall motion abnormalities. Unable to assess diastolic function . The aortic valve is poorly visualized. There is a bioprosthetic valve (DIONTE S3 #23) in the aortic position. The mean gradient is 13 mmHg. There is no significant valvular or paravalvular leak. Image quality limits assessment. The right ventricle is poorly visualized. A pacer/ICD wire is seen in the right ventricle. There is no significant pericardial effusion. Recommendation If clinical suspicion for infective endocarditis, consider performing a PINEDA. Comparison Comparison is made to the study of May 20, 2023. Technical differences limit comparison. Signature * Event Display: Echocardiogram - Complete Authored Date: Cardiology * Event Display: Cardiac Rhythm Strips Authored Date: * Event Display: Cardiac Rhythm Strips Authored Date: Hospital Progress note * Bella Reilly RN: SIGN, VERIFY, PERFORM Event Display: Progress Note Hospital Authored Date: Patient: CAPO LINDSEY Age: 74 years Sex: Male : 1950 Associated Diagnoses: None Author: Bella Reilly RN Findings Problem Related to Alteration in Comfort 09/24/2024 4:00 EST Alteration in Comfort Related to Disease process Goals & Outcomes: Comfort Pt will report acceptable level of comfort & pain control, Pt will state importance of adhering to pain strategy regime, Pt will demonstrate necessary skills to manage pain Interventions Implemented: Comfort Assess pain using appropriate pain scale/tools, Assess aggravating factors & prevent them accordingly, Assess alleviating factors & promote them accordingly BH Goals/Interventions, Comfort Yes Comfort, Problem Start 09/22/2024 3:47 Reviewed plan with, Comfort Patient Patient Progression, Comfort Pt progressing according to plan Comfort, Problem Ongoing Yes . Nursing Data Vital Signs : VITAL SIGNS SECTION 09/24/2024 3:00 EST Temperature 97.9 DegF Temperature Route Oral Pulse Rate 60 bpm Respiratory Rate 18 br/min Systolic Blood Pressure 152 mm Hg H Diastolic Blood Pressure 70 mm Hg Blood pressure sites Arm, right Pulse Pressure 82 mm Hg Oxygen Saturation 99 % Mode of Delivery (Oxygen) Room air 09/23/2024 23:00 EST Pulse Rate 72 bpm Respiratory Rate 18 br/min Systolic Blood Pressure 157 mm Hg H Diastolic Blood Pressure 69 mm Hg Blood pressure sites Arm, right Pulse Pressure 88 mm Hg Oxygen Saturation 100 % Mode of Delivery (Oxygen) Room air 09/23/2024 20:00 EST Temperature 97.9 DegF Temperature Route Oral Pulse Rate 82 bpm Respiratory Rate 18 br/min Systolic Blood Pressure 163 mm Hg H Diastolic Blood Pressure 79 mm Hg Blood pressure sites Arm, right Pulse Pressure 84 mm Hg Oxygen Saturation 97 % Mode of Delivery (Oxygen) Room air . Evaluation Assumed care @ 1900. Pt A/Ox4. VSS. Paced on tele monitor. Lungs dim on RA. Refusing bed alarm, ambulating independently with walker to BR. +2 edema noted in L hand. Call bolden within reach. See CIS for further assessment.. . * Allyn ROCA, [employer]: PERFORM, MODIFY Event Display: Progress Note Hospital Authored Date: Patient: ??CAPO LINDSEY ? Age:??74 Years?Sex:??Male?:??1950?? Subjective at bedside Patient??continued to have left hand??erythema, edema??and??pain Also concern of left upper extremity??edema Getting ultrasound Doppler??left lower extremity and ultrasound soft tissue??hand Review of Systems All review of systems negative except above Objective Measurements?? Height: 170 cm (09/23/24) Weight: 93 kg (09/17/24) Dry Weight: 90 kg (09/17/24) Body Mass Index:??32.18 kg/m2??Critical (09/17/24) ? Vital Signs?? Temperature: 97.9 DegF (09/23/24 12:14:00) Temperature Route: Oral (09/23/24 12:14:00) Pulse Rate: 77 bpm (09/23/24 12:14:00) Respiratory Rate: 20 br/min (09/23/24 12:14:00) Systolic Blood Pressure:??142 mm Hg??High (09/23/24 12:14:00) Diastolic Blood Pressure: 71 mm Hg (09/23/24 12:14:00) Blood pressure sites: Arm, right (09/23/24 12:14:00) Mean Arterial Pressure: 95 mm Hg (09/23/24 12:14:00) Pulse Pressure: 71 mm Hg (09/23/24 12:14:00) Oxygen Saturation: 97 % (09/23/24 12:14:00) Mode of Delivery (Oxygen): Room air (09/23/24 12:14:00) Early Warning Score: 3 (09/23/24 12:15:28) ? Intake/Output? 09/17 10:43 09/23 07:00 09/22 07:00 09/21 07:00 09/20 07:00 ?? 09/23 13:09 09/23 13:09 09/23 06:59 09/22 06:59 09/21 06:59 Intake ? 4740 ?125 ?990 ?120 ? 1355 Output ?0 ?0 ?0 ?0 ?0 Net Total ? 4740 ?125 ?990 ?120 ? 1355 ? Urine Count ? 25 ?0 ?6 ?3 ?5 ? Physical Exam General?NAD, AAO HEENT?PERRLA, oropharynx clear, moist mucus membranes Pulm?CTA bilaterally, no wheezes/rhonchi/rales CV?RRR, +S1/S2, no murmurs/rubs GI?Soft, nontender, nondistended, no organomegaly, bowel sounds are present Neuro?Moves all extremities MS?no obvious deformity Psych?Mood appropriate to situation?? Lt hand erythema and edema _ Inpatient Medications Medications (21) Active SCHEDULED: (10) Aspirin 81 mg Chew Tablet (aspirin 81 mg oral tablet, chewable) ??81 mg, By Mouth, Daily Ceftriaxone 1 Gm Inj (Ceftriaxone IVPB) ??1 Gm, IVPB, Every 24 hours Clonidine 0.1 mg Tablet (cloNIDine 0.1 mg oral tablet) ??0.1 mg, By Mouth, Daily at bedtime Colchicine 0.6 mg Tablet (colchicine 0.6 mg oral tablet) ??0.6 mg, By Mouth, Daily Gabapentin 100 mg Capsule (gabapentin 100 mg oral capsule) ??100 mg, By Mouth, 3 times a day Heparin 5000 units/mL Inj (1 mL) (Heparin Inj) ??5,000 units 1 mL, Subcutaneous Injection, 3 times a day Insulin Lispro 100 units/mL Inj (Insulin LISPRO Sliding Scale) ??2-10 units, Subcutaneous Injection, 3 times a day before meals Isosorbide Mononitrate 30 mg ER Tablet (isosorbide mononitrate 30 mg oral tablet, extended release)??30 mg, By Mouth, Daily NaCl 0.9% Flush 3ml (NaCL 0.9% Flush) ??3 mL, IV Push, Every 8 hours Spironolactone 25 mg Tablet (spironolactone 25 mg oral tablet) ??25 mg, By Mouth, Daily CONTINUOUS: (0) PRN: (11) Acetaminophen 325 mg Tablet (Acetaminophen Tablet) ??650 mg, By Mouth, Every 4 hours Albuterol 0.083% Inhalation Solution (Albuterol 0.083% inhalation raulito) ??2.5 mg 3 mL, BAND Nebulizer, Every 4 hours Calcium Carbonate 500 mg (Calcium 200 mg) Chewable Tablet (calcium carbonate 500 mg (200 mg elemental calcium) oral tablet, chewable) ??500 mg 1 tablet, Chew, Every 4 hours Docusate Sodium 100 mg Capsule (Docusate Sodium Capsule) ??100 mg 1 capsule, By Mouth, 2 times a day Melatonin 3 mg Tablet (Melatonin Tablet) ??3 mg, By Mouth, Daily at bedtime NaCl 0.9% Flush 3ml (NaCL 0.9% Flush) ??3 mL, IV Push, Every 8 hours Ondansetron 2mg/mL Inj (2mL Vial) (Zofran Inj) ??4 mg, IV Push, Every 6 hours OxyCODONE 5 mg IR Tablet (oxyCODONE 5 mg oral tablet) ??5 mg, By Mouth, Every 6 hours Polyethylene Glycol 17 Gm Powder (MiraLax Powder) ??17 Gm 1 pack/packet, By Mouth, Daily Polyvinyl Alcohol 1.4% Opthalmic Solution/Artificial Tears (Artificial Tears1.4%) ??2 drops, Eyes, Both, Every 4 hours Senna Tablet ??8.6 mg 1 tablet, By Mouth, 2 times a day ? 72 Hour Antibiotic History Active Antibiotics Calendar Day Last Administered First Administered Ceftriaxone??1 Gm, 100 mL/hr, IVPB, Every 24 hours ?6 09/23/2024 05:27 09/18/2024 06:04 ? Results Abnormal Labs ?? BLOOD COUNT & DIFF Abs. NRBC?0.0 k/mm3 ()?09/23/2024 06:32 Hct?35.5 % (Low)?09/23/2024 06:32 Hgb?11.5 Gm/dL (Low)?09/23/2024 06:32 MCHC?32.4 Gm/dL (Low)?09/23/2024 06:32 MCV?94.4 femtoliters (High)?09/23/2024 06:32 Nucleated RBC (Automated)?0.0 #/100 WBC'S ()?09/23/2024 06:32 RBC?3.76 m/mm3 (Low)?09/23/2024 06:32 RDW-SD?43.5 femtoliters ()?09/23/2024 06:32 ?? CHEM GENERAL Bicarbonate Level?16 mmol/L (Low)?09/23/2024 06:32 Estimated GFR Creatinine?90 ML/MIN/1.73 M2 ()?09/23/2024 06:32 Glucose Level?102 mg/dL (High)?09/23/2024 06:32 Glucose, POC?140 mg/dL (High)?09/23/2024 11:54 Potassium?HEMOLYZED mmol/L ()?09/23/2024 06:32 ?? Note: Critical results are displayed in red. ? Assessment/Plan ? 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 ??Foundto have??sepsis??with sigmoid diverticulitis and Streptococcus bacteremia.?? Course complicated by acute kidney injury in setting of sepsis. ??Acute kidney??injury has since resolved.?? Bacteremia iscleared as well. ??Due to neck pain referred with??left arm pain, per infectious disease recommendat ion pursuing cervical MRI??to rule out any spinal seeding. ?? Skilled for home services once final antimicrobial plan determined ? Bacteremia due to Streptococcus ??(R78.81) Enteritis due to Norovirus ??(A08.11) Diverticulitis (K57.92) Sepsis (A41.9) ?? Patient was admitted with abdominal pain diarrhea and sepsis, resolved CT scan of the abdomen and pelvis,??showing??Acute proximal sigmoid colon diverticulitis without free air or abscess collection Blood cultures from admission also revealed gram-positive's bacteremia, Strep Mitis Repeat blood culture sent 09/19 show clearance Echocardiogram complete: LV function appears preserved.?? No obvious valvular pathologies ?? -ID on board -Ctx -Pending MRI cx spine with pt has some pain- pt has pacemaker ?? L Hand Pain (M79.642) Gout ??(M10.9) -as been endorsing left hand pain,??pain appeared??neurological??with??sharp radiation up towards the elbow.?Initially no??joint effusion but developed some over last 48 hours. ??Has some arthritic changes.?? Hand x-ray done does not show any abnormalities either.?? Had minimal relief with oxycodone.?Has good perfusion. Discussed and initiated on gabapentin.?? Patient does have low threshold to pain??tolerance.?? -Given few week history of neck pain, pursuing MRI cervical spine??to rule out any spinal seeding of bacteremia/infection??which could also??explain??cervical radiculopathy and left hand neuropathic pain -However patient does have a history of gout and endorses slight improvement of his pain after colchicine on 09/21, will do short 5-day course of colchicine to see if this has further benefit ?? Shortness of breath Moderate persistent asthma Patient has been feeling increasing shortness of breath prior to admission He does have history of moderate persistent asthma.??No wheezing on exam today. His carvedilol was recently discontinued by his data systems manager??as they thought it would??be causing??bronchospasm.? Hyperglycemia with elevated HbA1c: Patient not a known diabetic.?? Blood glucose??in the 120s. ??HbA1c done, at 6%.?? Continue to monitor POC's??and??provide sliding scale coverage.? Received diabetes education??prior to discharge??and??close outpatient follow-up ? LISA (acute kidney injury) (N17.9) resolved HTN:??Continue spironolactone, clonidine. Carvedilol was recently discontinued due to risk of??bronchospasm. Started on Imdur, this has been tolerated well, can continue this at time of discharge MANNY:??On CPAP chronic fatigue -Buxw-IRICN-89 syndrome manifesting as chronic fatigue (R53.82):??Patient complaining of 2-month history of unintentional weight loss, loss of appetite, loss of energy, fatigue,??worsening exertional dyspnea He had two episodes of Covid-19 infection and was diagnosed??with post COVID- 19??syndrome with chronic fatigue. ?? Full code-Lovenox OMN: Plan for discharge home with services once MRI cervical spine complete and final antimicrobialregimen for discharge determined by infectious disease team ?? * Bella Reilly RN: VERIFY, PERFORM, MODIFY, SIGN Event Display: Progress Note Hospital Authored Date: Patient: CAPO LINDSEY Age: 74 years Sex: Male : 1950 Associated Diagnoses: None Author: Bella Reilly RN Findings Problem Related to Alteration in Comfort : Alteration in Comfort/new 09/23/2024 3:00 EST Alteration in Comfort Related to Disease process Goals & Outcomes: Comfort Pt will report acceptable level of comfort & pain control, Pt will state importance of adhering to pain strategy regime, Pt will demonstrate necessary skills to manage pain Interventions Implemented: Comfort Assess pain using appropriate pain scale/tools, Assess aggravating factors & prevent them accordingly, Assess alleviating factors & promote them accordingly BH Goals/Interventions, Comfort Yes Comfort, Problem Start 09/22/2024 3:47 Reviewed plan with, Comfort Patient Patient Progression, Comfort Pt progressing according to plan Comfort, Problem Ongoing Yes . Nursing Data Vital Signs : VITAL SIGNS SECTION 09/22/2024 20:42 EST Early Warning Score 4.00 09/22/2024 20:42 EST Temperature 97.7 DegF Temperature Route Oral Pulse Rate 114 bpm H Respiratory Rate 18 br/min Systolic Blood Pressure 157 mm Hg H Diastolic Blood Pressure 77 mm Hg Blood pressure sites Arm, right Mean Arterial Pressure 104 mm Hg Pulse Pressure 80 mm Hg Oxygen Saturation 100 % Mode of Delivery (Oxygen) Room air . Evaluation Assumed care @ 1900. Pt A/Ox4. VSS. Paced on tele monitor. Lungs dim on RA. Refusing bed alarm, ambulating independently with walker to BR. Pt endorses 6- 7/10 pain in L arm, +2 edema noted in hand. PRN Tylenol and Oxy given with some effect. Refused 2300 and 0300 vital signs. Call bolden within reach. See CIS for further assessment.. Discharge Information Rehabilitation Discharge : Rehab Discharge Index 09/18/2024 14:39 EST Comments on treatment indicated 74M admitted for acute sigmoid diverticulitis.See for gait, stairs, therex and balance. Rec home with services. Walker: distance 10-20 Distance pt will ambulate ~70' with LRAD and good balance Full chart review completed Yes Plan of care PT Gait training, Transfer training, Therapeutic exercise, Functional Activities, Balance training Consult note * Helio MARTÍNEZ, Sanjuana Stinson: MODIFY, MODIFY, MODIFY, PERFORM Event Display: Consultation Note Authored Date: Patient: ??CAPO LINDSEY ? Age:??74 Years?Sex:??Male?:??1950?? Reason for Consultation Streptococcus bacteremia Requested by Dr. Amy Renteria Source of Information CIS, patient History of Present Illness Date: 09/18/2024 Infectious Diseases Attending: ??Will ?? 74-year-old male with a past medical history of HTN, HLD, MANNY on CPAP, asthma, CKD, gout, obesity, psoriasis, post COVID-19 syndrome with chronic fatigue, AV block s/p pacemaker placement (05/20/23), s/p TAVR (07/21/20), who presented to the ER 09/17 with a 6-week history of worsening shortness of breath and weakness.?? The morning of 09/17, he attempted to get up from bed and got stuck between thebed and the dresser.?? On arrival he was noted to have a temperature of 100.2 with otherwise stablevitals.?? Leukocytosis of 29.5 with neutrophilic predominance, creatinine 1.59, AST 56, ALT 56, lactate 1.3, ESR 106, CRP 15.4, COVID-negative, GI PCR positive for norovirus.?? CT head and C-spine, CTA chest, CT abdomen pelvis were all obtained which noted acute proximal sigmoid colon diverticulitis without free air or abscess.?? Blood cultures now growing out Streptococcus species prompting ID consult. ?? Medications: Reviewed Antimicrobial Allergies: PCN- hives, swelling Family History:??No relevant history of infectious issues in first degree relatives.?? Social History and Infectious Diseases Exposure History: Denies tobacco, heavy alcohol,??or illicitdrug use. ??No recent travel.?? Former smoker. ??Lives with his , daughter, 2 dogs and cat. Review of Systems He reports??left lower quadrant??abdominal discomfort at times which he??states feels like gas pain.?He is having liquid stool nearly every hour.?? He denies rigors, dysuria, rash, joint pain.?? He does have some left-sided??neck discomfort for the last 2 weeks which she was attributing??to a muscle??pull. Physical Exam Vitals & Measurements Vital Signs?? Temperature: 97.5 DegF (09/18/24 07:00:00) Temperature Route: Oral (09/18/24 07:00:00) Pulse Rate: 66 bpm (09/18/24 07:00:00) Respiratory Rate: 20 br/min (09/18/24 07:00:00) Systolic Blood Pressure: 134 mm Hg (09/18/24 07:00:00) Diastolic Blood Pressure: 59 mm Hg (09/18/24 07:00:00) Blood pressure sites: Arm, left (09/18/24 07:00:00) Mean Arterial Pressure: 86 mm Hg (09/17/24 14:13:00) Pulse Pressure: 75 mm Hg (09/18/24 07:00:00) Oxygen Saturation: 100 % (09/18/24 07:00:00) Liters per Minute: 3 L/min (09/18/24 08:00:00) Mode of Delivery (Oxygen): Nasal cannula (09/18/24 08:00:00) Early Warning Score: 3 (09/18/24 10:30:11) ?? GENERAL:?Alert, in no acute distress.?? HEENT: Anicteric. Moist oral mucosa. CARDIOVASCULAR:??Regular rate and rhythm.?? Not able to appreciate any murmurs, rubs, or gallops.??No peripheral stigmata of endocarditis.?? RESPIRATORY:??Lungs clear to auscultation.?? GASTROINTESTINAL: Non-distended, non-tender. MUSCULOSKELETAL: Without joint effusions. No tenderness over spine with percussion. No gross deformity.?? Left-sided neck discomfort. SKIN: ??No diffuse rash present. NEUROLOGICAL/PSYCH:??A&Ox3, grossly intact.?? LINES:??PIV without erythema or pain.? Micro: Blood cultures??09/17/24: Streptococcus species Assessment/Plan Mr.??Anil is a 74-year-old male with a past medical history significant for??CKD, obesity,??AV block s/p pacemaker placement (05/20/23), s/p TAVR (07/21/20), who was admitted 09/17 with a 6-week history of worsening shortness of breath and weakness??found to have Streptococcus bacteremia, norovirus, and??sigmoid diverticulitis??without perforation or abscess.?? Agree with continuing ceftriaxone.??Can stop metronidazole??as no??abscess present.?? We may need a TTE??depending on??the Strep species is identified.?? At this time, he does not have any acute or chronic wounds, joint pain??or swelling,??recent dental work or signs of infection. Monitor neck pain for signs of seeding. ?Continue ceftriaxone ???Repeat blood cultures to document clearance ???Monitor neck pain for signs of seeding ? ID is following with you, Dr. Gee is covering the weekend. ?? Sanjuana Cadet [facility]- Division of Infectious Diseases ?? Discussed with Dr. Solis (This note was dictated using the Jumpido software and any typographical/grammatical errors were notdeliberate. Please contact provider for clarifications.) Total Time Spent I spent a total of??80+ minutes today reviewing the chart/medical records, speaking with the patient, formulating, and discussing the treatment plan, and documenting the findings and encounter. Problem List/Past Medical History Ongoing Allergic rhinitis Asthma CKD (chronic kidney disease) stage 2, GFR 60-89 ml/min Gout Hemorrhoid Hernia, inguinal HTN (hypertension) Hypercholesterolemia Hyperlipidemia Hypertension Obese class I MANNY - Obstructive sleep apnea Ocly-VUSIM-90 syndrome manifesting as chronic fatigue Psoriasis Psoriasis NOS Procedure/Surgical History ???Cardiac pacemaker ([place] left bundle) (05/20/2023)???TAVR - Transcatheter aortic valve replacement (07/21/2020)???Angiography of coronary arteries (06/24/2020)???Cataracts (2018)???Colonoscopy (2011)???Appendectomy (1967)???Bilateral Shoulder (10 years apart) Antibiotic History Active Antibiotics Calendar Day Last Administered First Administered Metronidazole??500 mg, 100 mL, 100 mL/hr, IVPB, Every 8 hours ?2 09/18/2024 08:51 09/17/2024 15:21 Ceftriaxone??1 Gm, 100 mL/hr, IVPB, Every 24 hours ?1 09/18/2024 06:04 09/18/2024 06:04 ? Stopped Antibiotics Stop Date/Time Last Administered First Administered Metronidazole??500 mg, 100 mL, 100 mL/hr, IVPB, Once 09/17/2024 10:11 09/17/2024 10:10 09/17/2024 10:10 Ceftriaxone??1 Gm, 100 mL/hr, IVPB, Once 09/17/2024 08:46 09/17/2024 08:46 09/17/2024 08:46 Allergies amLODIPine??(Feeling tired) diltiazem??(edema) erythromycin??(gi cramps) lisinopril??([D]Cough) losartan??(chest pain) penicillin??(Rash) Social History Alcohol Use: Past. Frequency: 1-2 times per week. Electronic Cigarette/Vaping Electronic Cigarette Use: Never. 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 Exercise Regular exercise: No. Home/Environment Living situation: Home/Independent. Lives with: : Amy. Nutrition/Health Diet: Regular. Other: No processed meat. Caffeine intake amount: 16 oz coffee daily. Sexual Sexually involved in last 6 months: No. Substance Abuse Use: Never. Tobacco Use: Former smoker, quit more than 30 days ago. Type: Cigarettes, Pipe. Tobacco use times per day: less than cigg a week, mostly pipe. Started at age: 16 Years. Stopped at age: 31 Years. Family History Atrial fibrillation: Father. Heart: Pat. Grandfather and Pat. Grandmother. Hypertension: Mother and Father. Pacemaker rhythm: Mother. Lab Results Test Name Test Result Date/Time WBC 14.5 k/mm3 09/18/2024 09:03 EST Hgb 11.7 Gm/dL 09/18/2024 09:03 EST Platelet Count 269 k/mm3 09/18/2024 09:03 EST Sed Rate 106 mm/hr 09/18/2024 09:03 EST Creatinine-Blood 1.28 mg/dL 09/18/2024 09:06 EST C-Reactive Protein 15.4 mg/dL 09/18/2024 09:06 EST Est Creatinine Clearance 47.22 mL/min 09/18/2024 10:30 EST GI PCR, Norovirus GI/GII POSITIVE 09/17/2024 13:15 EST * Larry Solis MD: PERFORM Event Display: Consultation Note Authored Date: [id number] Attending Attestation:?I have discussed the case and its management with the??FOLDER OPERATOR and agree with the findings and plan as documented in the FOLDER OPERATOR???s note. Note * Mirella Rooney RN: PERFORM Event Display: Discharge/Transfer Note Hospital Authored Date: [id number] Nursing Discharge Note Entered On: 09/24/2024 16:01 EST Performed On: 09/24/2024 16:01 EST by Mirella Rooney RN Nursing Discharge Note 2 Discharge Time : 09/24/2024 16:00 EST Discharge Level of Care at Discharge : Homehealth/VNA Discharge VNA/Hospice/Home Care(v001) : [facility] [place] Patient Left Unit Via : Ambulatory Patient Accompanied Off Unit with : Significant other DC Instructions Provided & Signed by Pt : Yes Patient Understands D/C Instructions : Yes Patient Instructions Discharge Signed : Yes Did Pt have Specialty Bed or Wound Vac : No Mirella Rooney RN - 09/24/2024 16:01 EST * Allyn ROCA, Helder: PERFORM, MODIFY Event Display: Discharge/Transfer Note Hospital Authored Date: [id number] Patient: ??CAPO LINDSEY ? Age:??74 Years?Sex:??Male?:??1950?? Patient Information Discharge Location: 4 Primary Care Physician: Ya Riojas Admit Date/Time: 09/17/2024 10:43 Discharge Disposition Discharge Disposition: ?? Discharge Diagnosis Gout (M10.9) HTN (hypertension) (I10) Hyperlipidemia (E78.5) MANNY - Obstructive sleep apnea (G47.33) Zirk-FSEWD-87 syndrome manifesting as chronic fatigue (R53.82) Shortness of breath ([id number]) Diverticulitis (K57.92) Sepsis (A41.9) LISA (acute kidney injury) (N17.9) Shortness of breath (R06.02) Bacteremia due to Streptococcus (R78.81) Enteritis due to Norovirus (A08.11) Hand pain, left (M79.642) _ Discharge Medications Albuterol (Albuterol (Eqv-Ventolin HFA) 90 mcg/inh inhalation aerosol)?2?puff(s)?Inhalation?Every 6 hours Aspirin (aspirin 81 mg oral capsule)?1?capsule?81?Milligram?By Mouth?Every 4 hours Budesonide-Formoterol (Symbicort 160mcg/4.5mcg Inhaler)?See Instructions?Inhale 2 puffs by mouth twice daily Calcium Carbonate (Tums 500 mg oral tablet, chewable)?500?Milligram?1?tablet?Chew?Daily?as needed?as needed Carvedilol (carvedilol 12.5 mg oral tablet)?TAKE 1 TABLET BY MOUTH TWICE DAILY IN ADDITION TO 6.25 MG TWICE DAILY Carvedilol (carvedilol 6.25 mg oral tablet)?6.25?Milligram?1?tablet?By Mouth?2 times a day Clonidine (cloNIDine 0.1 mg oral tablet)?0.1?Milligram?1?tablet?By Mouth?Daily atbedtime Melatonin (Melatonin 1 mg oral tablet)?TAKE 1 TO 3 TABLETS BY MOUTH AT BEDTIME FOR SLEEP Spironolactone (spironolactone 25 mg oral tablet)?25?Milligram?1?tablet?By Mouth?Daily ? Allergies Allergies ?(Active and Proposed Allergies Only) amLODIPine? (Severity: Moderate, Onset: Unknown) ?Reactions: Feeling tired diltiazem? (Severity: Unknown severity, Onset: Unknown) ?Reactions: edema losartan? (Severity: Unknown severity, Onset: Unknown) ?Reactions: chest pain erythromycin? (Severity: Unknown severity, Onset: Unknown) ?Reactions: gi cramps lisinopril? (Severity: Unknown severity, Onset: Unknown) ?Reactions: [D]Cough penicillin? (Severity: Unknown severity, Onset: Unknown) ?Reactions: Rash ? Future Appointments Saturday 11:00 AM EST ?? With: aMyi Carney Where: [facility] [address] [place] [address]- Status: Pending Saturday 11:20 AM EST ?? With: Zach Maria MD Where: [facility] Status: Pending Saturday 8:00 AM EST ?? Where: [facility] [address] [place] [address]- Status: Pending Hospital Course ?? 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 ??Foundto have??sepsis??with sigmoid diverticulitis and Streptococcus bacteremia.?? Course complicated by acute kidney injury in setting of sepsis. ??Acute kidney??injury has since resolved.?? Bacteremia iscleared as well. ??Due to neck pain referred with??left arm pain, per infectious disease MRI cervical spine without infection finding. ??Discharging patient home??on oral antibiotic ?? Bacteremia due to Streptococcus ??(R78.81) Enteritis due to Norovirus ??(A08.11) Diverticulitis (K57.92) Sepsis (A41.9) ?? Patient was admitted with abdominal pain diarrhea and sepsis, resolved CT scan of the abdomen and pelvis,??showing??Acute proximal sigmoid colon diverticulitis without free air or abscess collection Blood cultures from admission also revealed gram-positive's bacteremia, Strep Mitis Repeat blood culture sent 09/19 show clearance Echocardiogram complete: LV function appears preserved.?? No obvious valvular pathologies ?? -Seen by ID- cephalexin??1 g??3 times daily??to complete??2-week course for bacteremia only??09/18-10/01. -GI follow up as oupt for diverticulitis ?? L Hand Pain (M79.642) Gout ??(M10.9) ?? Patient has??left hand pain??radiating to the shoulder??that started after??placing IV line in his hand.?? I personally assessed??his left hand complaints??for an hour??over 2 days. ??His symptoms different from time to time??but its mainly??some swelling??in the thenar muscle,??mild erythema??aroun d same area that resolved.?? Mainly tenderness over the thenar muscle.?? No significant joint??painor tenderness or erythema??or edema, the only trigger for the pain??is stretching the muscle itself.?? Other than the initial erythema that resolved with??no warmness or??signs of infection. ??Patient also has??episodes of rest pain,??no tenderness??in exam and??moving??rest??does not provoke any pain. ??Also complained of??left forearm??and??biceps muscle??pain??which is not significant.?? X-ray??left hand without significant finding,??ultrasound soft tissue did not show??signs of infection or??fluid to aspirate,??ultrasound Doppler negative for??clot.?? Patient is overwhelmed by this complaint and want explanation. ??I had long discussion with him??that we ruled out??the major??concerns like clot, joint infection??and less likely bone infection??however to rule that out we need MRI which??he is not interested to have at this point??and I also think less likely to have osteomyelitis.??After long discussion??shared decision??to continue??current treatment??including supportive treatment and colchicine??and reassess as outpatient. ??If not improving will need to be seen by java xml developer??at??consider MRI. ??Patient agreed to this plan??and??interested to go home??with plan to follow-up as outpatient ?? -Lidocaine local cream -Continue short course of colchicine -Tylenol??and oxycodone -Gabapentine ?? Shortness of breath- resolved Moderate persistent asthma Patient has been feeling increasing shortness of breath prior to admission He does have history of moderate persistent asthma.??No wheezing on exam today. His carvedilol was recently discontinued by his data systems manager??as they thought it would??be causing??bronchospasm.? Hyperglycemia with elevated HbA1c: Patient not a known diabetic.?? Blood glucose??in the 120s. ??HbA1c done, at 6%.?? -Start metformin ? LISA (acute kidney injury) (N17.9) resolved HTN:??Continue spironolactone, clonidine. Carvedilol was recently discontinued due to risk of??bronchospasm. Started on Imdur, this has been tolerated well, can continue this at time of discharge MANNY:??On CPAP chronic fatigue -Wvbh-ELIXX-30 syndrome manifesting as chronic fatigue (R53.82):??Patient complaining of 2-month history of unintentional weight loss, loss of appetite, loss of energy, fatigue,??worsening exertional dyspnea He had two episodes of Covid-19 infection and was diagnosed??with post COVID- 19??syndrome with chronic fatigue. ?? Objective Vital Signs?? Temperature: 97.5 DegF (09/24/24 13:13:00) Temperature Route: Oral (09/24/24 13:13:00) Pulse Rate: 82 bpm (09/24/24 13:13:00) Respiratory Rate: 18 br/min (09/24/24 13:19:00) Systolic Blood Pressure:??165 mm Hg??High (09/24/24 13:13:00) Diastolic Blood Pressure:??85 mm Hg??High (09/24/24 13:13:00) Blood pressure sites: Leg, left (09/24/24 13:13:00) Mean Arterial Pressure: 112 mm Hg (09/24/24 13:13:00) Pulse Pressure: 80 mm Hg (09/24/24 13:13:00) Oxygen Saturation: 99 % (09/24/24 13:13:00) Mode of Delivery (Oxygen): Room air (09/24/24 13:13:00) Early Warning Score: 3 (09/24/24 13:19:58) ? . Physical Exam General?NAD, AAO HEENT?PERRLA, oropharynx clear, moist mucus membranes Pulm?CTA bilaterally, no wheezes/rhonchi/rales CV?RRR, +S1/S2, no murmurs/rubs GI?Soft, nontender, nondistended, no organomegaly, bowel sounds are present Neuro?Moves all extremities MS?no obvious deformity Psych?Mood appropriate to situation?? Lt hand mild edema, point of tenderness over thenar ms, no erythema today Pending Results Add On Lab Order ordered on 09/17/2024 Basic Metabolic Panel ordered on 09/24/2024 Beta Hydroxybutyrate ordered on 09/24/2024 CBC w/ Differential ordered on 09/24/2024 Lactic Acid Level ordered on 09/24/2024 Follow-Up Appointments Added Follow Up ?Time Frame ?Comments Pelon BAUTISTA, Ya Morales?3-5 day: call to discuss follow up visit Home Health Face to Face I certify that this patient is under my care and that I had a ebzu-[id number] encounter with the patient? The encounter with the patient was in whole, or in part, for the following medical condition, whichis the primary reason for home health care:?? multiple comorbidities ?? Nursing: Medication management (reconciliation, teaching), Chronic disease management.?? Physical Therapy: Home exercise program to strengthen, increase ROM.?? Physician Signature: Allyn Pendleton. ?? Results Discharge Labs BACTERIOLOGY Blood Culture Results Final report ()?? 09/18/2024 15:08 Blood Culture Specimen Source BLOOD ()?? 09/18/2024 15:08 Blood Culture Isolate 1 Comment ()?? 09/18/2024 15:08 Blood Cult Antimicrobial Susceptibility Comment ()?? 09/17/2024 07:40 Reflex to Rapid ID, JANNA Comment ()?? 09/17/2024 07:40 Blood Cult 2 Results Preliminary report ()?? 09/19/2024 02:12 Blood Culture 2 Specimen Source BLOOD ()?? 09/19/2024 02:12 Blood Culture 2 Isolate 1 Comment ()?? 09/19/2024 02:12 A calcoaceticus-baumannii comp,Culture 1 Not Detected ()?? 09/17/2024 07:40 Bacteroides fragilis, Culture 1 Not Detected ()?? 09/17/2024 07:40 Enterobacterales, Culture 1 Not Detected ()?? 09/17/2024 07:40 Enterobacter cloacae complex, Culture 1 Not Detected ()?? 09/17/2024 07:40 Escherichia coli, Culture 1 Not Detected ()?? 09/17/2024 07:40 Klebsiella aerogenes, Culture 1 Not Detected ()?? 09/17/2024 07:40 Klebsiella oxytoca, Culture 1 Not Detected ()?? 09/17/2024 07:40 Klebsiella pneumoniae group, Culture 1 Not Detected ()?? 09/17/2024 07:40 Proteus spp., Culture 1 Not Detected ()?? 09/17/2024 07:40 Salmonella spp., Culture 1 Not Detected ()?? 09/17/2024 07:40 Serratia marcescens, Culture 1 Not Detected ()?? 09/17/2024 07:40 Haemophilus influenzae, Culture 1 Not Detected ()?? 09/17/2024 07:40 Neisseria meningitidis, Culture 1 Not Detected ()?? 09/17/2024 07:40 Pseudomonas aeruginosa, Culture 1 Not Detected ()?? 09/17/2024 07:40 Stenotrophomonas maltophilia, Culture 1 Not Detected ()?? 09/17/2024 07:40 Enterococcus faecalis, Culture 1 Not Detected ()?? 09/17/2024 07:40 Enterococcus faecium, Culture 1 Not Detected ()?? 09/17/2024 07:40 Listeria monocytogenes, Culture 1 Not Detected ()?? 09/17/2024 07:40 Staphylococcus spp., Culture 1 Not Detected ()?? 09/17/2024 07:40 Staphylococcus aureus, Culture 1 Not Detected ()?? 09/17/2024 07:40 Staphylococcus epidermidis, Culture 1 Not Detected ()?? 09/17/2024 07:40 Staphylococcus lugdunensis, Culture 1 Not Detected ()?? 09/17/2024 07:40 Streptococcus spp., Culture 1 DETECTED (Abnormal)?? 09/17/2024 07:40 Streptococcus agalactiae, Culture 1 Not Detected ()?? 09/17/2024 07:40 Streptococcus pneumoniae, Culture 1 Not Detected ()?? 09/17/2024 07:40 Streptococcus pyogenes, Culture 1 Not Detected ()?? 09/17/2024 07:40 Mireya albicans, Culture 1 Not Detected ()?? 09/17/2024 07:40 Mireya auris, Culture 1 Not Detected ()?? 09/17/2024 07:40 Mireya glabrata, Culture 1 Not Detected ()?? 09/17/2024 07:40 Mireya krusei, Culture 1 Not Detected ()?? 09/17/2024 07:40 Mireya parapsilosis, Culture 1 Not Detected ()?? 09/17/2024 07:40 Mireya tropicalis, Culture 1 Not Detected ()?? 09/17/2024 07:40 Cryptococcus neoformans/gattii,Culture 1 Not Detected ()?? 09/17/2024 07:40 IMP (Carbapenemases), Culture 1 Not applicable ()?? 09/17/2024 07:40 KPC (Carbapenemases), Culture 1 Not applicable ()?? 09/17/2024 07:40 OXA-48-like (Carbapenemases), Culture 1 Not applicable ()?? 09/17/2024 07:40 NDM (Carbapenemases), Culture 1 Not applicable ()?? 09/17/2024 07:40 VIM (Carbapenemases), Culture 1 Not applicable ()?? 09/17/2024 07:40 mcr-1 (Colistin Resistance), Culture 1 Not applicable ()?? 09/17/2024 07:40 CTX-M (ESBL), Culture 1 Not applicable ()?? 09/17/2024 07:40 mecA/C(Methicillin Resistance),Culture 1 Not applicable ()?? 09/17/2024 07:40 mecA/C and MREJ (MRSA), Culture 1 Not applicable ()?? 09/17/2024 07:40 Shantel/B (Vancomycin Resistance),Culture 1 Not applicable ()?? 09/17/2024 07:40 ? BLOOD COUNT & DIFF WBC 10.7 k/mm3 ()?? 09/23/2024 06:32 RBC 3.76 m/mm3 (Low)?? 09/23/2024 06:32 Hgb 11.5 Gm/dL (Low)?? 09/23/2024 06:32 Hct 35.5 % (Low)?? 09/23/2024 06:32 MCV 94.4 femtoliters (High)?? 09/23/2024 06:32 MCH 30.6 pg ()?? 09/23/2024 06:32 MCHC 32.4 Gm/dL (Low)?? 09/23/2024 06:32 Platelet Count 330 k/mm3 ()?? 09/23/2024 06:32 RDW-SD 43.5 femtoliters ()?? 09/23/2024 06:32 MPV 9.4 femtoliters ()?? 09/23/2024 06:32 Nucleated RBC (Automated) 0.0 #/100 WBC'S ()?? 09/23/2024 06:32 Abs. NRBC 0.0 k/mm3 ()?? 09/23/2024 06:32 Abs. Neut 26.1 k/mm3 (High)?? 09/17/2024 07:40 Abs. Lymph 0.9 k/mm3 ()?? 09/17/2024 07:40 Abs. Page 1.7 k/mm3 (High)?? 09/17/2024 07:40 Abs. Eo 0.0 k/mm3 ()?? 09/17/2024 07:40 Abs. Baso 0.1 k/mm3 ()?? 09/17/2024 07:40 Neut % 88.6 % (High)?? 09/17/2024 07:40 Lymph % 3.0 % (Low)?? 09/17/2024 07:40 Page % 5.8 % ()?? 09/17/2024 07:40 Eos % 0.0 % ()?? 09/17/2024 07:40 Baso % 0.2 % ()?? 09/17/2024 07:40 Imm Gran 2.4 % ()?? 09/17/2024 07:40 Abs. Imm Gran 0.7 k/mm3 ()?? 09/17/2024 07:40 ?? CARDIAC Nt-Probnp 1264 pg/mL (High)?? 09/17/2024 07:40 High Sensitivity Troponin (HSTnT) 43 ng/L (High)?? 09/17/2024 17:37 ?? CHEM GENERAL Sodium 135 mmol/L ()?? 09/23/2024 06:32 Potassium HEMOLYZED mmol/L ()?? 09/23/2024 06:32 Chloride 103 mmol/L ()?? 09/23/2024 06:32 Bicarbonate Level 16 mmol/L (Low)?? 09/23/2024 06:32 Anion Gap 16 ()?? 09/23/2024 06:32 Glucose Level 102 mg/dL (High)?? 09/23/2024 06:32 Glucose, POC 101 mg/dL (High)?? 09/24/2024 11:39 BUN 12 mg/dL ()?? 09/23/2024 06:32 Creatinine-Blood 0.88 mg/dL ()?? 09/23/2024 06:32 Estimated GFR Creatinine 90 ML/MIN/1.73 M2 ()?? 09/23/2024 06:32 Calcium 9.0 mg/dL ()?? 09/17/2024 07:40 Calcium, Ionized pH Corrected 1.24 mmol/L ()?? 09/19/2024 02:12 Phosphorus 3.1 mg/dL ()?? 09/23/2024 06:32 Magnesium 1.8 mg/dL ()?? 09/23/2024 06:32 Protein, Total 7.3 Gm/dL ()?? 09/17/2024 07:40 Albumin 3.3 Gm/dL (Low)?? 09/17/2024 07:40 AG Ratio 0.8 ()?? 09/17/2024 07:40 Alkaline Phosphatase 90 units/L ()?? 09/17/2024 07:40 Lipase 30 units/L ()?? 09/17/2024 07:40 AST (SGOT) 56 units/L (High)?? 09/17/2024 07:40 ALT (SGPT) 56 units/L (High)?? 09/17/2024 07:40 Bilirubin, Total 1.0 mg/dL ()?? 09/17/2024 07:40 Lactate 1.1 mmol/L ()?? 09/19/2024 02:12 C-Reactive Protein 15.4 mg/dL (High)?? 09/18/2024 09:06 ?? COAG INR 1.1 ()?? 09/17/2024 07:40 Protime (PT) 12.0 seconds (High)?? 09/17/2024 07:40 D-Dimer 3.33 mg/L FEU (High)?? 09/17/2024 07:40 ? ENDOCRINE/TUMOR MARKER TSH 2.82 uIU/mL ()?? 09/17/2024 07:40 ? HEME OTHER Sed Rate 106 mm/hr (High)?? 09/18/2024 09:03 Hold Lavender Top SPECIMEN DISCARDED AFTER 24 HOURS. ()?? 09/18/2024 15:08 ?? IMMUNOLOGY GENERAL Anti-Nuclear Antibody Screen NEGATIVE ()?? 09/18/2024 09:03 Rheumatoid Factor 16.0 IU/mL (High)?? 09/18/2024 09:06 ?? STOOL STUDIES GI PCR, Campylobacter NEGATIVE (N)?? 09/17/2024 13:15 GI PCR, Plesiomonas shigelloides NEGATIVE (N)?? 09/17/2024 13:15 GI PCR, Salmonella NEGATIVE (N)?? 09/17/2024 13:15 GI PCR, Vibrio NEGATIVE (N)?? 09/17/2024 13:15 GI PCR, Vibrio cholerae NEGATIVE (N)?? 09/17/2024 13:15 GI PCR, Yersinia enterocolitica NEGATIVE (N)?? 09/17/2024 13:15 GI PCR, Enteroaggregative E coli NEGATIVE (N)?? 09/17/2024 13:15 GI PCR, Enteropathogenic E coli NEGATIVE (N)?? 09/17/2024 13:15 GI PCR, Enterotoxigenic E coli NEGATIVE (N)?? 09/17/2024 13:15 GI PCR, Tveif-bqabt-rnbunkvar E coli NEGATIVE (N)?? 09/17/2024 13:15 GI PCR, Shigella/Enteroinvasive E coli NEGATIVE (N)?? 09/17/2024 13:15 GI PCR, Cryptosporidium NEGATIVE (N)?? 09/17/2024 13:15 GI PCR, Cyclospora cayetanensis NEGATIVE (N)?? 09/17/2024 13:15 GI PCR, Entamoeba histolytica NEGATIVE (N)?? 09/17/2024 13:15 GI PCR, Giardia lamblia NEGATIVE (N)?? 09/17/2024 13:15 GI PCR, Adenovirus F 40/41 NEGATIVE (N)?? 09/17/2024 13:15 GI PCR, Astrovirus NEGATIVE (N)?? 09/17/2024 13:15 GI PCR, Norovirus GI/GII POSITIVE (Abnormal)?? 09/17/2024 13:15 GI PCR, Rotavirus A NEGATIVE (N)?? 09/17/2024 13:15 GI PCR, Sapovirus NEGATIVE (N)?? 09/17/2024 13:15 ?? URINE OTHER Est Creatinine Clearance 68.68 mL/min ()?? 09/23/2024 07:46 ? VIROLOGY COVID-19 by RT-PCR NEGATIVE ()?? 09/17/2024 07:47 ? Microbiology ?? Blood Culture #2?? Completed?? Source: Blood Body Site: ?? Collected Dt/Tm: 09/19/2024 02:13 Last Updated Dt/Tm: 09/20/2024 13:11 ?? Blood Culture 2 Results?? Completed?? Source: Blood Body Site: ?? Collected Dt/Tm: 09/19/2024 02:12 Last Updated Dt/Tm: 09/20/2024 13:12 ?? Blood Culture?? Completed?? Source: Blood Body Site: ?? Collected Dt/Tm: 09/18/2024 15:08 Last Updated Dt/Tm: 09/20/2024 07:40 ?? Blood Culture Result?? Completed?? Source: Blood Body Site: ?? Collected Dt/Tm: 09/18/2024 15:08 Last Updated Dt/Tm: 09/20/2024 07:40 ?? GI Profile, Stool, PCR?? Completed?? Source: Stool Body Site: ?? Collected Dt/Tm: 09/17/2024 11:08 Last Updated Dt/Tm: 09/17/2024 18:11 ?? Blood Culture?? Completed?? Source: Blood Body Site: ?? Collected Dt/Tm: 09/17/2024 07:40 Last Updated Dt/Tm: 09/17/2024 23:05 ?? Blood Culture #2?? Completed?? Source: Blood Body Site: ?? Collected Dt/Tm: 09/17/2024 07:40 Last Updated Dt/Tm: 09/18/2024 04:05 ?? Blood Culture Result?? Completed?? Source: Blood Body Site: ?? Collected Dt/Tm: 09/17/2024 07:40 Last Updated Dt/Tm: 09/17/2024 23:06 ?? Blood Culture Rapid ID, JANNA?? Completed?? Source: Blood Body Site: ?? Collected Dt/Tm: 09/17/2024 07:40 Last Updated Dt/Tm: 09/17/2024 23:06 ?? Blood Culture 2 Results?? Completed?? Source: Blood Body Site: ?? Collected Dt/Tm: 09/17/2024 07:40 Last Updated Dt/Tm: 09/18/2024 04:05 ?? COVID-19 (Novel Coronavirus), Rapid PCR?? Completed?? Source: Nasal Body Site: Nose Collected Dt/Tm: 09/17/2024 07:04 Last Updated Dt/Tm: 09/17/2024 09:02 ? >35??minutes spent on discharge * Mirella Rooney RN: PERFORM Event Display: Patient Education/Instruction Authored Date: [id number] Inpatient Adult Discharge Instructions. [place] [id number] Name: CAPO LINDSEY : 1950?? Visit: 09/17/2024 10:43?? Current Date: 09/24/2024 15:15 ?? Account: [id number]?? Inpatient Adult Discharge Instructions We would like to thank you for allowing us to assist you with your healthcare needs. The following includes patient education materials and information regarding your injury/illness. Our entire staffstrives to provide an excellent experience for our patients and their families. PLEASE ENSURE YOU FOLLOW-UP PER THE INSTRUCTIONS BELOW! ?? YOUR OPINION IS IMPORTANT TO US! Please complete the survey you may receive by mail or email. Your feedback will be used to make improvements to the healthcare experiences of our patients and their families. Surveys are administered by [employer] ?? If further treatment with your primary care physician or another doctor is recommended, it is important for you to keep the appointment. Call your primary care physician or return to the Emergency Department immediately if your condition worsens, fails to improve, or new symptoms develop. If you need to find a doctor, you can call [facility] [employer] for a referral at [phone] or toll free at [phone] or log in to [email or web address].. ?? [facility], in keeping with [facility] guidance, no longer requires face masks for staff, patientsor visitors in most situations. Similiar to time spent indoors at other locations, there is the chance that you were exposed to repiratory viruses during your time with us (such as flu or COVID-19). If you develop symptoms concerning for a viral respiratory infection, please seek testing (and treatment if indicated) from your medical provider or home test kit. ?? You can view and manage your care through the patient portal or by using a health care mac of your choosing. [employer] is a website that allows you to securely view your medical information including your hospital discharge summary, office visit summaries, medications and follow-up visits. You can also request appointments, renew medications, and request access to your medical information using a health care mac of your choosing, or just ask a question. You can enroll at [email or web address] or register during your next office visit. You have been discharged from [facility], Patient Care Unit: W4??. If you have any questions regarding these instructions, including results of studies pending, afteryou leave, please call us and we will be happy to assist you 20/05. [facility] Your Care Team Attending Physician Helder Gruber MD?? Consulting Providers Helder Gruber MD?? Discharging Providers Helder Gruber MD Reason for Your Visit pt coming from home . pt has been having chills, fatigue, breathlessness, lack of apetite for couple weeks. RLQ abdomen pain in last couple weeks. diarrhea last 2 days. Fell this morning ??out of bed. Had trouble breathing d/t asthma. called.?? 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 You may have had other tests and procedures not included in this list. Please discuss all test results with your provider. SELAM Screen Basic Metabolic Panel?-- Results Pending -- Beta Hydroxybutyrate?-- Results Pending -- Blood Culture Blood Culture #2 Blood Culture 2 Results Blood Culture Rapid ID, JANNA Blood Culture Result BUN CBC Comprehensive Metabolic Panel COVID-19 (Novel Coronavirus), Rapid PCR Creatinine CRP D-DIMER Electrolytes ESR GI Profile, Stool, PCR Glucose Level GLUCOSE POC High??Sensitivity??Troponin T HOLD LAVENDER TUBE INR Ionized Calcium Lactate Level Lactic Acid Level?-- Results Pending -- Lipase Magnesium Level Phosphorus Level ProBNP RF Qual Troponin T, High Sensitivity TSH with T4 Reflex (Adults Only) CT Abd/Pelvis W/ IV Contrast Only CT Angio Chest CT Cervical Spine W/O Contrast CT Head/Brain W/O Contrast MRI Cervical Spine W+W/O Contrast US Doppler Ext Upper Venous Left US Extremity Non-Vascular Left Limited XR Hand Min 3 Views Left SELAM Screen?? Add On Lab Order?? B Type Natriuretic Peptide (ProBNP)?? BUN?? Basic Metabolic Panel?? Beta Hydroxybutyrate?? Blood Culture?? Blood Culture #2?? Blood Culture 2 Results?? Blood Culture Rapid ID, JANNA?? Blood Culture Result?? C Reactive Protein (CRP)?? CBC?? CBC w/ Differential?? COVID-19 (Novel Coronavirus), Rapid PCR?? CT Abd/Pelvis W/ IV Contrast Only?? CT Angio Chest?? CT Cervical Spine W/O Contrast?? CT Head/Brain W/O Contrast?? Comprehensive Metabolic Panel?? Creatinine?? D Dimer (D-DIMER)?? Electrolytes?? GI Profile, Stool, PCR?? Glucose Level?? Glucose POC?? High??Sensitivity??Troponin T?? Hold Lavender Top Tube (HOLD LAVENDER TUBE)?? INR?? Ionized Calcium?? Lactic Acid Level?? Lipase?? MRI Cervical Spine W+W/O Contrast?? Magnesium Level?? Phosphorus Level?? Rheumatoid Factor Qual (RF Qual)?? Sedimentation Rate (ESR)?? TSH with T4 Reflex (Adults Only)?? US Doppler Ext Upper Venous Left?? US Extremity Non-Vascular Left Limited?? Hand Min 3 Views Left?? Primary Care Provider Ya Riojas? Advance Directive Health Care Proxy on File Yes - Health Care Proxy Discharge Vitals Temperature: 97.5 DegF Height: 170 cm Pulse Rate: 82 bpm Weight: 93 kg Respiratory Rate: 18 br/min Body Mass Index:??32.18 kg/m2??Critical Systolic Blood Pressure:??165 mm Hg??High Body surface area: 2.1 Diastolic Blood Pressure:??85 mm Hg??High ?? Oxygen Saturation: 99 % ?? Studies Pending All studies ordered during this hospital stay have been completed unless listed below. Please discuss all pending results with your provider listed above in these instructions. ?? Add On Lab Order?? Basic Metabolic Panel?? Beta Hydroxybutyrate?? CBC w/ Differential?? Lactic Acid Level?? What to do next Instructions From Your Doctor ?? Orders? 09/24/24 15:00:00 EST?? Scheduled Follow-Up Appointments Saturday 11:00 AM EST ?? With: Mayi Carney Where: [facility] [address] [place] [id number]- Status: Pending Saturday 11:20 AM EST ?? With: Zach Maria MD Where: [facility] Status: Pending Saturday 8:00 AM EST ?? Where: [facility] [address] [place] [id number]- Status: Pending You Need to Schedule the Following Appointments Follow Up with??Pelon BAUTISTA, Ya Morales When:??Within 3-5 day: call to discuss follow up visit Where: ?? Discharge Medications CAPO LINDSEY :1950 Visit Date:09/17/2024 Medications: Please continue your medications until treatment is completed or stopped by your provider. Medications not listed below should be discontinued. Discuss any questions related to medications with your provider. What How Much When Instructions Next Dose New Acetaminophen (acetaminophen 325 mg oral tablet) 3 tab(s) Oral 3 times a day Duration: 14 Days Temperature Greater than 100.5 ?? Pickup at [facility]/pharmacy #1098 tonight New Cephalexin (cephalexin monohydrate 500 mg oral capsule) 2 capsule Oral 3 times a day Duration: 8 Days Pickup at [facility]/pharmacy #1098 tonight New Colchicine (colchicine 0.6 mg oral tablet) 1 tab(s) Oral Daily Duration: 7 Days Pickup at [facility]/pharmacy #1098 tomorrow morning New Gabapentin (gabapentin 100 mg oral capsule) 1 capsule Oral 3 times a day Duration: 14 Days Pickup at [facility]/pharmacy #1098 tonight at 9 pm New Isosorbide Mononitrate (isosorbide mononitrate 30 mg oral tablet, extended release) 30 Milligram Oral Daily Duration: 30 Days Pickup at [facility]/pharmacy #1098 tomorrow morning New Lidocaine Topical (lidocaine 0.5% topical gel) 1 mac Topically 3 times a day Duration: 14 Days Pickup at [facility]/pharmacy #1098 3 times a day New Oxycodone (oxyCODONE 5 mg oral tablet) 1 tab(s) Oral Every 6 hours as needed for Pain , Severe Duration: 7 Days Pickup at [facility]/pharmacy #1098 Every 6 hours as needed for Pain , Severe Unchanged Albuterol (Albuterol (Eqv-Ventolin HFA) 90 mcg/ inh inhalation aerosol) 2 puff(s) Inhalation Every 6 hours continue current regimen; every 6 hours Unchanged Aspirin (aspirin 81 mg oral capsule) 1 capsule Oral Daily tomorrow morning Unchanged Budesonide-Formoterol (Symbicort 160mcg/ 4.5mcg Inhaler) See instructions Inhale 2 puffs by mouth twice daily ?? tomorrow morning Unchanged Calcium Carbonate (Tums 500 mg oral tablet, chewable) 1 tab(s) Chew Daily as needed for as needed as needed Unchanged Clonidine (cloNIDine 0.1 mg oral tablet) 1 tab(s) Oral Daily at Bedtime tonight Unchanged Durable Medical Equipment (CPAP Machine) Unchanged Melatonin (Melatonin 1 mg oral tablet) TAKE 1 TO 3 TABLETS BY MOUTH AT BEDTIME FOR SLEEP ?? TAKE 1 TO 3 TABLETS BY MOUTH AT BEDTIME FOR SLEEP Unchanged Spironolactone (spironolactone 25 mg oral tablet) 1 tab(s) Oral Daily tomorrow morning Pharmacy Information [facility]/pharmacy #1098: [address] [place], [place] [id number] [phone] ?? What How Much When Comments Stop Taking Carvedilol (carvedilol 12.5 mg oral tablet) TAKE 1 TABLET BY MOUTH TWICE DAILY IN ADDITION TO 6.25 MG TWICE DAILY ?? Stop Taking Carvedilol (carvedilol 6.25 mg oral tablet) 1 tab(s) Oral Twice a day Prescription Given During Visit Acetaminophen (acetaminophen 325 mg oral tablet) - 3 tablet = 975 mg, By Mouth, 3 times a day, # 126 tablet, 0 Refills, Temperature Greater than 100.5, [facility], [address] [place] [address] [phone]?? Cephalexin (cephalexin monohydrate 500 mg oral capsule) - 2 capsule = 1,000 mg, By Mouth, 3 times aday, # 48 capsule, 0 Refills, [facility], [address] [id number] [phone]?? Colchicine (colchicine 0.6 mg oral tablet) - 1 tablet = 0.6 mg, By Mouth, Daily, # 7 tablet, 0 Refills, [facility], [address] [place] [address] [phone]?? Gabapentin (gabapentin 100 mg oral capsule) - 1 capsule = 100 mg, By Mouth, 3 times a day, # 42 capsule, 0 Refills, [facility], [address] [place] [address] [phone]?? Isosorbide Mononitrate (isosorbide mononitrate 30 mg oral tablet, extended release) - 30 mg, By Mouth, Daily, # 30 tablet, 0 Refills, [facility], [address] [place] [phone]?? Lidocaine Topical (lidocaine 0.5% topical gel) - 1 application, Topically, 3 times a day, # 120 Gm,0 Refills, [facility], [address] [place] [address] [phone]?? Oxycodone (oxyCODONE 5 mg oral tablet) - 1 tablet = 5 mg, By Mouth, Every 6 hours, # 28 tablet, 0 Refills, [facility], [address] [place] [address] [phone]?? Laboratory Results Below is a partial list of the most recent Laboratory test results done prior to this discharge. You may have had other tests and procedures not included in this list. Please discuss all test resultswith your provider. Est Creatinine Clearance - 68.68 mL/min (09/23/2024) SELAM Screen (09/18/2024) ???Anti-Nuclear Antibody Screen - NEGATIVE Blood Culture (09/18/2024) ???Blood Culture Results - Final report???Blood Culture Specimen Source - BLOOD Blood Culture #2 (09/19/2024) ???Blood Cult 2 Results - Preliminary report???Blood Culture 2 Specimen Source - BLOOD Blood Culture 2 Results (09/19/2024) ???Blood Culture 2 Isolate 1 - Comment Blood Culture Rapid ID, JANNA (09/17/2024) ???A calcoaceticus-baumannii comp,Culture 1 - Not Detected???Bacteroides fragilis, Culture 1 - Not Detected???Enterobacterales, Culture 1 - Not Detected???Enterobacter cloacae complex, Culture 1 - Not Detected???Escherichia coli, Culture 1 - Not Detected???Klebsiella aerogenes, Culture 1 - Not Detec michael???Klebsiella oxytoca, Culture 1 - Not Detected???Klebsiella pneumoniae group, Culture 1 - Not Detected???Proteus spp., Culture 1 - Not Detected???Salmonella spp., Culture 1 - Not Detected???Serratia marcescens, Culture 1 - Not Detected???Haemophilus influenzae, Culture 1 - Not Detected???Neisseria meningitidis, Culture 1 - Not Detected???Pseudomonas aeruginosa, Culture 1 - Not Detected???Stenotrophomonas maltophilia, Culture 1 - Not Detected???Enterococcus faecalis, Culture 1 - Not Detected???Enterococcus faecium, Culture 1 - Not Detected???Listeria monocytogenes, Culture 1 - Not Detected???Staphylococcus spp., Culture 1 - Not Detected???Staphylococcus aureus, Culture 1 - Not Detected???Staphylococcus epidermidis, Culture 1 - Not Detected???Staphylococcus lugdunensis, Culture 1 - Not Detected???Streptococcus spp., Culture 1 - DETECTED???Streptococcus agalactiae, Culture 1 - Not Detec michael???Streptococcus pneumoniae, Culture 1 - Not Detected???Streptococcus pyogenes, Culture 1 - Not Detected???Mireya albicans, Culture 1 - Not Detected???Mireya auris, Culture 1 - Not Detected???Mireya glabrata, Culture 1 - Not Detected???Mireya krusei, Culture 1 - Not Detected???Mireya parapsi losis, Culture 1 - Not Detected???Mireya tropicalis, Culture 1 - Not Detected???Cryptococcus neoformans/gattii,Culture 1 - Not Detected???IMP (Carbapenemases), Culture 1 - Not applicable???KPC (Carbapenemases), Culture 1 - Not applicable???OXA-48-like (Carbapenemases), Culture 1 - Not applicable???NDM (Carbapenemases), Culture 1 - Not applicable???VIM (Carbapenemases), Culture 1 - Not applicable???mcr-1 (Colistin Resistance), Culture 1 - Not applicable???CTX-M (ESBL), Culture 1 - Not applicable???mecA/C(Methicillin Resistance),Culture 1 - Not applicable???mecA/C and MREJ (MRSA), Culture 1 - Not applicable???Shantel/B (Vancomycin Resistance),Culture 1 - Not applicable Blood Culture Result (09/18/2024) ???Blood Culture Isolate 1 - Comment BUN (09/23/2024) ???BUN - 12 mg/dL CBC (09/23/2024) ???WBC - 10.7 k/mm3???RBC - 3.76 m/mm3???Hgb - 11.5 Gm/dL???Hct - 35.5 %???MCV - 94.4 femtoliters???MCH - 30.6 pg???MCHC - 32.4 Gm/dL???Platelet Count - 330 k/mm3???RDW-SD - 43.5 femtoliters???MPV - 9.4 femtoliters???Nucleated RBC (Automated) - 0.0 #/100 WBC'S???Abs. NRBC - 0.0 k/mm3 Comprehensive Metabolic Panel (09/17/2024) ???Sodium - 131 mmol/L???Potassium - 4.7 mmol/L???Chloride - 98 mmol/L???Bicarbonate Level - 16 mmol/L???Anion Gap - 17???Glucose Level - 137 mg/dL???BUN - 39 mg/dL???Creatinine-Blood - 1.59 mg/dL???Estimated GFR Creatinine - 45 ML/MIN/1.73 M2???Calcium - 9.0 mg/dL???Protein, Total - 7.3 Gm/dL???Albumin - 3.3 Gm/dL???AG Ratio - 0.8???Alkaline Phosphatase - 90 units/L???AST (SGOT) - 56 units/L???ALT (SGPT) - 56 units/L???Bilirubin, Total - 1.0 mg/dL COVID-19 (Novel Coronavirus), Rapid PCR (09/17/2024) ???COVID-19 by RT-PCR - NEGATIVE Creatinine (09/23/2024) ???Creatinine-Blood - 0.88 mg/dL???Estimated GFR Creatinine - 90 ML/MIN/1.73 M2 CRP (09/18/2024) ???C-Reactive Protein - 15.4 mg/dL D-DIMER (09/17/2024) ???D-Dimer - 3.33 mg/L FEU Electrolytes (09/23/2024) ???Sodium - 135 mmol/L???Potassium - HEMOLYZED???Chloride - 103 mmol/L???Bicarbonate Level - 16 mmol/L???Anion Gap - 16 ESR (09/18/2024) ???Sed Rate - 106 mm/hr GI Profile, Stool, PCR (09/17/2024) ???GI PCR, Campylobacter - NEGATIVE???GI PCR, Plesiomonas shigelloides - NEGATIVE???GI PCR, Salmonella - NEGATIVE???GI PCR, Vibrio - NEGATIVE???GI PCR, Vibrio cholerae - NEGATIVE???GI PCR, Yersinia enterocolitica - NEGATIVE???GI PCR, Enteroaggregative E coli - NEGATIVE???GI PCR, Enteropathogenic E coli - NEGATIVE???GI PCR, Enterotoxigenic E coli - NEGATIVE???GI PCR, Wsohp-iklfg-futkalvyd E coli -NEGATIVE???GI PCR, Shigella/Enteroinvasive E coli - NEGATIVE???GI PCR, Cryptosporidium - NEGATIVE???GI PCR, Cyclospora cayetanensis - NEGATIVE???GI PCR, Entamoeba histolytica - NEGATIVE???GI PCR, Giardia lamblia - NEGATIVE???GI PCR, Adenovirus F 40/41 - NEGATIVE???GI PCR, Astrovirus - NEGATIVE???GIPCR, Norovirus GI/GII - POSITIVE???GI PCR, Rotavirus A - NEGATIVE???GI PCR, Sapovirus - NEGATIVE Glucose Level (09/23/2024) ???Glucose Level - 102 mg/dL GLUCOSE POC (09/24/2024) ???Glucose, POC - 101 mg/dL High??Sensitivity??Troponin T (09/17/2024) ???High Sensitivity Troponin (HSTnT) - 43 ng/L HOLD LAVENDER TUBE (09/18/2024) ???Hold Lavender Top - SPECIMEN DISCARDED AFTER 24 HOURS. INR (09/17/2024) ???INR - 1.1???Protime (PT) - 12.0 seconds Ionized Calcium (09/19/2024) ???Calcium, Ionized pH Corrected - 1.24 mmol/L Lactate Level (09/17/2024) ???Lactate - 1.3 mmol/L Lipase (09/17/2024) ???Lipase - 30 units/L Magnesium Level (09/23/2024) ???Magnesium - 1.8 mg/dL Phosphorus Level (09/23/2024) ???Phosphorus - 3.1 mg/dL ProBNP (09/17/2024) ???Nt-Probnp - 1264 pg/mL RF Qual (09/18/2024) ???Rheumatoid Factor - 16.0 IU/mL Troponin T, High Sensitivity (09/17/2024) ???High Sensitivity Troponin (HSTnT) - 46 ng/L TSH with T4 Reflex (Adults Only) (09/17/2024) ???TSH - 2.82 uIU/mL You will be contacted within 72 hours with your results. Immunizations This Visit Not Given Vaccine Commentsinfluenza virus vaccine, inactivated Permanently Refused Allergies (NKA means No Known Allergies) amLODIPine??(Feeling tired) diltiazem??(edema) erythromycin??(gi cramps) lisinopril??([D]Cough) losartan??(chest pain) penicillin??(Rash) Problems Active Problems??(15) Allergic rhinitis?? Asthma?? CKD (chronic kidney disease) stage 2, GFR 60-89 ml/min?? Gout?? Hemorrhoid?? Hernia, inguinal?? HTN (hypertension)?? Hypercholesterolemia?? Hyperlipidemia?? Hypertension?? Obese class I?? MANNY - Obstructive sleep apnea?? 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 Psoriasis?? Psoriasis NOS?? Education Materials Below is the list of Educational Leaflet Providered with your Discharge Instructions. Valuables and Belongings I fully understand and agree that [facility] accepts no responsibility for all my personal property including clothing, toilet articles, radios, jewelry, dentures, hearing aids, rings, money, or any other property that is in my possession or is brought to me after admission. I understand certain valuables may be placed in a hospital safe for a short period of time. I understand that the hospital is not liable for loss or damage due to accident, fire, or other natural occurrence while said property is in the safe. I accept full responsibility for any personal property that I keep with me, and will not hold the hospital responsible in case of loss or disappearance. I acknowledge that i have been encouraged to send valuables and belongings home. ?? Date for Pt to Sign Valuables/Belongings: 09/17/24 13:12:00 ?? Other Discharge Information ? Case Management Discharge Plan?? Discharge Plan?? Discharge Agency Information?? Discharge Level of Care at Discharge: Homehealth/VNA Name of Agency #1: [facility] Service Categories #1: Physical Therapy, Retirement ?? Service Comments #1: A referral was placed to [facility] for home health. Someone will contact you toarrange a visit once you have been discharged home. IF you do not hear from anyone, please contact the agency ?? Pulmonary Rehab Status?? Pulmonary Rehab Discharge Status?? Respiratory Rate: 18 br/min ? Common Emergency Awareness Tips IS IT A STROKE? Act FAST and Check for these signs: FACE Does the face look uneven? ARM Does one arm drift down? SPEECH Does their speech sound strange? TIME Call at any sign of stroke ?? Heart Attack Signs Chest discomfort: Most heart attacks involve discomfort in the center of the chest and lasts more than a few minutes, or goes away and comes back. It can feel like uncomfortable pressure, squeezing, fullness or pain. Discomfort in upper body: Symptoms can include pain or discomfort in one or both arms, back, neck, jaw or stomach. Shortness of breath: With or without discomfort. Other signs: Breaking out in a cold sweat, nausea, or lightheaded. Remember, MINUTES DO MATTER. If you experience any of these heart attack warning signs, call to get immediate medical attention! ?? Smoking can increase your chances of developing chronic health problems and can cause harmful effects to other family members in your house. If you smoke, you are strongly encouraged to quit. Please call [facility] Define My Style Link at [phone] or [phone] ([phone]) or log in to [email or web address] for referrals to smoking cessation programs. ?? 382 Suicide & Crisis Lifeline is available 20/05 if you or someone you know needs to find a reason to keep living. By calling 848 you'll be connected to a skilled, trained counselor at a crisis center in your area. INPATIENT DISCHARGE INSTRUCTIONS SIGNATURE PAGE CAPO LINDSEY Location:[facility] Registration Date and Time:09/17/2024 10:43 EST Primary Care Physician: Ya Riojas, Attending Physician: Allyn ROCA, [employer], I CAPO LINDSEY, have received the above patient education materials/instructions and have verbalized understanding. If ambulance or transport services are being used I further acknowledge being givena choice of service. ?? If you need to contact me, please call me at this number: . Patient/Band Bias Machine Operator Name: Patient/Band Bias Machine Operator Signature: Relationship to Patient: Witness Name/Signature: Date: Patient Care team information Care Team Personnel Name: Farida ROCA, Abran Membreno Position: [facility] Renal MD Member Role: Lifetime Consulting Physician Address: [address] [place] [address] [address] [facility] [place], [place] [address] Telecom: Name: Cherry Granger RN Position: [facility] RN Supv Member Role: Primary Care Nurse Name: Bella Reilly RN Position: S RN Member Role: Primary Care Nurse Name: Christina Pryor Position: S RN Member Role: Primary Care Nurse Name: Percy Denson RN Position: S RN Member Role: Primary Care Nurse Name: Julio Johnson RN Position: S RN Member Role: Primary Care Nurse Name: Lexii Napier RN Position: S RN Member Role: Primary Care Nurse Name: Ya Riojas Position: [facility] Associate Professional Member Role: PCP Address: [address] [place] [address]- Telecom: Name: Esther Villanueva RN Position: S RN Member Role: Primary Care Nurse Name: Sylvia Gallego RN Position: S RN Member Role: Primary Care Nurse Name: Gilbert Hernández RN Position: S RN Member Role: Primary Care Nurse Name: Luis Back RN Position: S RN Member Role: Primary Care Nurse Name: Alexa Taylor RN Position: S RN Member Role: Primary Care Nurse Name: Rosalio Kruger MD Position: [facility] Renal MD Member Role: Lifetime Consulting Physician Address: [address] [facility] [address] [facility], [place] [address]- Telecom: Name: Lashay Desai RN Position: [facility] RN Member Role: Primary Care Nurse Name: Isabelle Mcclure RN Position: [facility] RN Member Role: Primary Care Nurse Care Team Related Persons Name: AMY LINDSEY Insurance Providers Guarantor name: CAPO LINDSEY Health Plan Information #: 2 Payer: MEDEX Member Number: [id number] Policy Number: NA Group Number: [id number] Health Plan Information #: 3 Payer: MEDEX Member Number: [id number] Policy Number: NA Group Number: NA Health Plan Information #: 1 Payer: MEDICARE A INPT 25 Member Number: [id number] Policy Number: NA Group Number: NA
== END 2024-10-05 16:32 | disposition home or self-care (01) ==
PROVIDERS: PCP Obstetrics & Gynecology; Visit Provider Urology
DX: N40.0 Benign prostatic hyperplasia without lower urinary tract symptoms (principal); R39.12 Poor urinary stream; R35.1 Nocturia
CPT/HCPCS: 99204

== ENCOUNTER → 2024-10-05 14:51 | Outpatient (BNVA) | payer MEDICARE, SELFPAY | PROVIDERS: PCP Obstetrics & Gynecology; Visit Provider Urology | DX: N40.1 Benign prostatic hyperplasia with lower urinary tract symptoms (principal); R39.12 Poor urinary stream; R35.1 Nocturia | CPT/HCPCS: 51798; 81003; 99202 ==

== ENCOUNTER 2024-10-07 09:57 | Outpatient (AMB) | payer MEDICARE, SELFPAY ==
[2024-10-07 10:00] VITALS: BP 148/64; PULSE 83; O2SAT 98; BMI 30.7
--- NOTE | 2024-10-07 10:00 | HO.NEPHOV ---
Vital Signs 10/07/24 10:00 10/07/24 10:17 Height 5 ft 7 in Weight 196 lb BMI 30.7 BP 148/64 H 140/70 H Blood Pressure Location Rt brachial Rt brachial Position Sitting Sitting Pulse 83 Pulse Source Pulse Oximeter Pulse Oximetry (%) 98 Oxygen Delivery Method Room Air Intake Visit Reasons: [facility] f/u/ Conf [place] Man Required: No Accompanied by: Self / Same As Patient Allergies amlodipine Allergy (Mild, Verified 10/07/24 10:02) Drowsy erythromycin base Allergy (Mild, Verified 10/07/24 10:02) Abdominal Pain Penicillins Allergy (Mild, Verified 10/07/24 10:02) Rash statins Allergy (Severe, Uncoded 10/05/24 16:03) joint pain Medication List - Last Reconciled 10/07/24 by Abran Iqbal MD albuterol sulfate 90 mcg/actuation (Ventolin HFA) 2 puffs inhalation Q6H PRN aspirin (Adult Low Dose Aspirin) 81 mg PO DAILY budesonide-formoterol 160-4.5 mcg/actuation (Symbicort) 2 puffs inhalation BID clonidine HCl 0.1 mg PO BEDTIME CPAP (CPAP Machine/Device) As directed ipratropium bromide intranasal PRN isosorbide mononitrate ER 30 mg PO DAILY melatonin 1 mg PO BEDTIME PRN nebivolol (Bystolic) 20 mg PO DAILY peak flow meter (In-Check Nasal With Mask) As directed spironolactone 25 mg PO DAILY tamsulosin (Flomax) 0.4 mg PO BEDTIME HPI Comments Details: Bruno is a pleasant middle-aged man with a history of resistant hypertension in the setting of obstructive sleep apnea and obesity. Blood pressure has been rather difficult to control in the past. He is sensitive to various medications In the past blood pressure was well controlled with Bystolic. During his recent hospitalization at [facility] all his medications with changes due to significantly elevated blood pressure. Currently he is on spironolactone 25 mg daily, clonidine 0.1 mg at bedtime, carvedilol 20 mg twice a day. Home blood pressure readings have been acceptable. He is having issues with clonidine and wants to stop this. There is a history of H pylori but he was unable to tolerate the treatment regimen and all the medications were discontinued few months ago. He had significant GI symptoms which seems to improved over the last month or so. He is having some trouble breathing in the form of wheezing when he goes out any attributes this to allergies. He follows with Dr. Enriquez from pulmonary History of severe aortic regurgitation status post TAVR in June 2020. Status post pacemaker placement 01/08/24 Home BP was high;Eliza is back on Clonidine 0.1 mg QHS Still has dyspnea on exertion;No chest pain 05/07/2024. Here for follow-up. Continues with the current antihypertensive regimen. He wakes up at night what least once to urinate. He takes melatonin. Home blood pressure readings were reviewed 08/05/24 Overall doing well BP accpetable; Complains of increased urinary frequency at night. He has some hesitancy as well. 10/07/2024 Bruno was recently hospitalized for pneumonia. He had bacteremia in successfully treated with IV antibiotics. Blood pressure is suboptimal. Antihypertensive medication change during hospitalization. Last week he called my office and I started him back on Bystolic. He is no longer on Coreg Home blood pressure readings are better. Seen by Urology. Tamsulosin has been started. Renal ultrasonogram has been ordered. We waiting to see Cardiology and waiting for chemical stress test [facility] Medical History Asthma Obstructive sleep apnea Surgical History S/P placement of cardiac pacemaker Aortic valve replaced H/O shoulder surgery Family History Father Afib Mother Pacemaker Social History Patient Tobacco Use Status: Never used Tobacco Physical Exam Vital Signs: Last Vital Signs Pulse 83 10/07/24 10:00 BP 140/70 H 10/07/24 10:17 Pulse Ox 98 10/07/24 10:00 Oxygen Delivery Method Room Air 10/07/24 10:00 BMI result Body Mass Index 30.7 Comfortable Neck supple no JVD. Lungs entry equal no rales. Heart S1-S2 heard no gallop or rub. Abdomen soft nontender. Neuro alert awake oriented. No asterixis. Extremities no edema. Results Reviewed Results Reviewed: Recent creatinine was normal Nephrology Results: No Data to Display Assessment & Plan Assessment & Plan (1) HTN (hypertension): Code(s): I10 - Essential (primary) hypertension Category: Medical (2) Obstructive sleep apnea: Code(s): G47.33 - Obstructive sleep apnea (adult) (pediatric) Category: Medical (3) BPH (benign prostatic hyperplasia): Code(s): N40.0 - Benign prostatic hyperplasia without lower urinary tract symptoms Category: Medical Plan Bruno has resistant hypertension in setting of obstructive sleep apnea and blood pressure has been difficult to control. He has sensitive to various antihypertensive medications and this has made management rather difficult. The list of medication that he is allergic to have been listed above. Encouraged him to stay on low-sodium diet Continue to use CPAP regularly. All medication were reviewed. I will keep him on Coreg along with other medications. Await cardiac workup. h/o nocturia and hesitancy. Probably has BPH Seen by Urology. Started on tamsulosin. He feels better. Medications: Changed From melatonin 1-3 tabs orally bedtime; 30 days 90 tabs 6RF sleep To melatonin 1 mg PO BEDTIME PRN Coding Level of Care Code Est Pt Level 4 (07297) Diagnoses HTN (hypertension) I10 Obstructive sleep apnea G47.33 BPH (benign prostatic hyperplasia) N40.0
[2024-10-07 10:17] VITALS: BP 140/70
== END 2024-10-07 10:30 | disposition home or self-care (01) ==
PROVIDERS: PCP Obstetrics & Gynecology; Visit Provider Internal Medicine Hypertension Specialist
DX: I10 Essential (primary) hypertension (principal); G47.33 Obstructive sleep apnea (adult) (pediatric); N40.0 Benign prostatic hyperplasia without lower urinary tract symptoms
CPT/HCPCS: 99214

== ENCOUNTER → 2024-10-07 09:57 | Outpatient (BNVA) | payer MEDICARE, SELFPAY | PROVIDERS: PCP Obstetrics & Gynecology; Visit Provider Internal Medicine Hypertension Specialist | DX: I1A.0 Resistant hypertension (principal); G47.33 Obstructive sleep apnea (adult) (pediatric); E66.9 Obesity, unspecified; N40.0 Benign prostatic hyperplasia without lower urinary tract symptoms; Z68.30 Body mass index [BMI] 30.0-30.9, adult | CPT/HCPCS: 99212 ==

== ENCOUNTER 2024-12-02 14:39 | Outpatient (AMB) | payer MEDICARE, SELFPAY ==
[2024-12-02 14:40] VITALS: BP 148/70; PULSE 84; O2SAT 99; BMI 32.7
--- NOTE | 2024-12-02 14:40 | HO.NEPHOV_ITS ---
Vital Signs 12/02/24 14:40 Height 5 ft 7 in Weight 209 lb BMI 32.7 BP 148/70 H Blood Pressure Location Lt brachial Position Sitting Pulse 84 Pulse Source Pulse Oximeter Pulse Oximetry (%) 99 Oxygen Delivery Method Room Air Intake Visit Reasons: Hypertension/4 Month Follow Up/ Conf Car Sales Representative Required: No Accompanied by: Self / Same As Patient Allergies amlodipine Allergy (Mild, Verified 12/02/24 14:42) Drowsy erythromycin base Allergy (Mild, Verified 12/02/24 14:42) Abdominal Pain Penicillins Allergy (Mild, Verified 12/02/24 14:42) Rash statins Allergy (Severe, Uncoded 10/05/24 16:03) joint pain Medication List - Last Reconciled 12/02/24 by Abran Iqbal MD albuterol sulfate 90 mcg/actuation (Ventolin HFA) 2 puffs inhalation Q6H PRN aspirin (Adult Low Dose Aspirin) 81 mg PO DAILY budesonide-formoterol 160-4.5 mcg/actuation (Symbicort) 2 puffs inhalation BID clonidine HCl 0.1 mg PO BEDTIME CPAP (CPAP Machine/Device) As directed ipratropium bromide intranasal PRN isosorbide mononitrate ER 30 mg PO DAILY melatonin 1 mg PO BEDTIME PRN nebivolol (Bystolic) 20 mg PO DAILY peak flow meter (In-Check Nasal With Mask) As directed spironolactone 25 mg PO DAILY tamsulosin (Flomax) 0.4 mg PO BEDTIME HPI Comments Details: Bruno is a pleasant middle-aged man with a history of resistant hypertension in the setting of obstructive sleep apnea and obesity. Blood pressure has been rather difficult to control in the past. He is sensitive to various medications In the past blood pressure was well controlled with Bystolic. During his recent hospitalization at [facility] all his medications with changes due to significantly elevated blood pressure. Currently he is on spironolactone 25 mg daily, clonidine 0.1 mg at bedtime, carvedilol 20 mg twice a day. Home blood pressure readings have been acceptable. He is having issues with clonidine and wants to stop this. There is a history of H pylori but he was unable to tolerate the treatment regimen and all the medications were discontinued few months ago. He had significant GI symptoms which seems to improved over the last month or so. He is having some trouble breathing in the form of wheezing when he goes out any attributes this to allergies. He follows with Dr. Enriquez from pulmonary History of severe aortic regurgitation status post TAVR in June 2020. Status post pacemaker placement 01/08/24 ;Home BP was high;Eliza is back on Clonidine 0.1 mg QHS Still has dyspnea on exertion;No chest pain 05/07/2024. Here for follow-up. Continues with the current antihypertensive regimen. He wakes up at night what least once to urinate. He takes melatonin.Home blood pressure readings were reviewed 08/05/24;Overall doing well BP accpetable; Complains of increased urinary frequency at night. He has some hesitancy as well. 10/07/2024 Bruno was recently hospitalized for pneumonia. He had bacteremia in successfully treated with IV antibiotics. Blood pressure is suboptimal. Antihypertensive medication change during hospitalization. Last week he called my office and I started him back on Bystolic. He is no longer on Coreg Home blood pressure readings are better. Seen by Urology. Tamsulosin has been started. Renal ultrasonogram has been ordered. 12/02/24 Feels better Dyspnea is better On Bystolic Seeing by Cardiology;s/p chemical stress test [facility] Medical History Asthma Obstructive sleep apnea Surgical History S/P placement of cardiac pacemaker Aortic valve replaced H/O shoulder surgery Family History Father Afib Mother Pacemaker Social History Patient Tobacco Use Status: Never used Tobacco Physical Exam Vital Signs: Last Vital Signs Pulse 84 12/02/24 14:40 BP 148/70 H 12/02/24 14:40 Pulse Ox 99 12/02/24 14:40 Oxygen Delivery Method Room Air 12/02/24 14:40 BMI result Body Mass Index 32.7 Comfortable Neck supple no JVD. Lungs entry equal no rales. Heart S1-S2 heard no gallop or rub. Abdomen soft nontender. Neuro alert awake oriented. No asterixis. Extremities no edema. Results Reviewed Nephrology Results: No Data to Display Assessment & Plan Assessment & Plan (1) HTN (hypertension): Code(s): I10 - Essential (primary) hypertension Category: Medical (2) Obstructive sleep apnea: Code(s): G47.33 - Obstructive sleep apnea (adult) (pediatric) Category: Medical (3) BPH (benign prostatic hyperplasia): Code(s): N40.0 - Benign prostatic hyperplasia without lower urinary tract symptoms Category: Medical Plan Bruno has resistant hypertension in setting of obstructive sleep apnea and blood pressure has been difficult to control. He has sensitive to various antihypertensive medications and this has made management rather difficult. The list of medication that he is allergic to have been listed above. Encouraged him to stay on low-sodium diet Continue to use CPAP regularly. All medication were reviewed. Of carvedilol. Currently on Bystolic s/p cardiac workup. No intervention planned h/o nocturia and hesitancy. Probably has BPH Seen by Urology. Recently started on tamsulosin. He feels better. Coding Level of Care Code Est Pt Level 4 (72078) Diagnoses HTN (hypertension) I10 Obstructive sleep apnea G47.33 BPH (benign prostatic hyperplasia) N40.0
--- OUTSIDE RECORDS SUMMARY | 2024-12-02 15:48 | XMS_ITS | Continuity of Care Document ---
Author Organization [facility] Address [address] [place] [address]- Care Team Providers Care Buffet Manager Name Role Phone Ya Riojas Primary Care Physician Encounter [facility] Date(s): 10/12/24 - 11/11/24 [facility] [address] [place] [address] [address] Attending Physician: Nayeli Merino Admitting Physician: AdmNayeli hall Referring Physician: Admtr ArBienvenido Encounter Type: Triage Allergies, Adverse Reactions, Alerts Substance Criticality Severity Reaction Reaction Severity Status diltiazem edema Active erythromycin gi cramps Active penicillin Rash Active amLODIPine High criticality Moderate Feeling tired Active losartan chest pain Active lisinopril [D]Cough Active Immunizations Given and Recorded Vaccine Date [...] virus vaccine, inactivated 10/23/07 Give n SARS-CoV-2(COVID-19)mRNA-LNP vac([id number]) 08/10/23 Recorded tetanus/diphtheria/pertussis, acel(Tdap) 11/27/22 Given tetanus/diphtheria/pertussis, acel(Tdap) 11/29/12 Recorded [id number] bivalent booster vax 08/03/22 Recorded SARS-CoV-2 (COVID-19) [...] 11 Refills, Maintenance, 10/08/23 4:02:00 PM EST, [id number], Partial fill upon patient request [...] Date: 03/21/23 Status: Ordered Repeat number: 1 cloNIDine 0.1 mg oral tablet 0.1 mg, 1, tablet, By Mouth, Daily at bedtime Start Date: 09/17/24 Status: Ordered Repeat number: 1 CPAP Photo Finisher, 05/22/23 6:56:00 PM EDT, Supply Start Date: 05/22/23 Status: Ordered Repeat number: 1 isosorbide mononitrate 30 mg oral tablet, extended release 30 mg, By Mouth, Daily, # 30 tablet, Refills 0, Tot. Refills 0, Maintenance, 09/24/24 2:55:00 PM EST, Route to Pharmacy Electronically, [facility]acy #[id number], Partial fill upon patient request if the prescription is for a schedule II opioid drug., 170, cm, 09/24/24 13:13:00 EST, Height, 90, kg, 09/17/24 14:13:00 EST, Dry Weight Start Date: 09/24/24 Stop Date: 10/24/24 Status: Ordered Quantity: 30.0 Unit: tablet Repeat number: 1 Melatonin 1 mg oral tablet TAKE 1 TO 3 TABLETS BY MOUTH AT BEDTIME FOR SLEEP Start Date: 09/17/24 Status: Ordered Repeat number: 1 Nebivolol 20 mg oral tablet 0 Refills, Maintenance, 10/30/24 10:54:00 AM EST, Partial fill upon patient request if the prescription is for a schedule II opioid drug. Start Date: 10/30/24 Status: Ordered Repeat number: 1 spironolactone 25 [...] Replace Required Details, Route to Pharmacy Electronically, [id number], [id number], 169, cm, 08/28/24 10:25:00 EDT, Height, 95.9, kg, 05/12/24 13:50:00 EDT, Dry Weight Start Date: 09/11/24 Status: Ordered Quantity: 11.0 Unit: g Repeat number: 1 tamsulosin 0.4 mg oral capsule 0.4 mg, 1, capsule, Refills 0, Maintenance, 10/30/24 10:54:00 AM EST, Partial fill upon patient request if the prescription is for a schedule II opioid drug. Start Date: 10/30/24 Status: Ordered Repeat number: 1 Problem List Condition Confirmation Course Effective Dates Status Health Status Informant Allergic rhinitis Confirmed Active Aortic valve stenosis Confirmed Active Asthma Confirmed Active Pacemaker Confirmed Active CKD (chronic kidney disease) stage 2, GFR 60-89 ml/min Confirmed Active Gout Confirmed Active Hemorrhoid Confirmed Active Hx of diverticulitis of colon Confirmed Active Hypercholesterolemia Confirmed Active Hyperlipidemia Confirmed Active Hypertension Confirmed 1999 Active HTN (hypertension) Confirmed Active High degree atrioventricular block Confirmed Active Hernia, inguinal Confirmed 1975 Active Obese class I Confirmed Active MANNY - Obstructive sleep apnea Confirmed 2000 Active 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 Confirmed Active [...] Personnel Name: Farida ROCA, Abran Membreno Position: [facility] Renal MD Member Role: Lifetime Consulting Physician Address: [address] [place] [address] [address] [place] [address]- Telecom: Name: Cherry Granger RN Position: [facility] RN Supv Member Role: Primary Care Nurse Name: Bella Reilly RN Position: [facility] RN Member Role: Primary Care Nurse Name: Christina Pryor Position: S RN Member Role: Primary Care Nurse Name: Percy Denson RN Position: [facility] RN Member Role: Primary Care Nurse Name: Julio Johnson RN Position: [facility] RN Member Role: Primary Care Nurse Name: Lexii Napier RN Position: [facility] RN Member Role: Primary Care Nurse Name: Ya Riojas Position: [facility] Associate Professional Member Role: PCP Address: [address] [place] [address]- [place] Telecom: Name: Esther Villanueva RN Position: S RN Member Role: Primary Care Nurse Name: Sylvia Gallego RN Position: [facility] RN Member Role: Primary Care Nurse Name: Gilbert Hernández RN Position: [facility] RN Member Role: Primary Care Nurse Name: Luis Back RN Position: [facility] RN Member Role: Primary Care Nurse Name: Alexa Taylor RN Position: [facility] RN Member Role: Primary Care Nurse Name: Rosalio Kruger MD Position: [facility] Outreach Member Role: Lifetime Consulting Physician Address: [address] [facility] [address] [facility], [address] Telecom: Name: Lashay Desai RN Position: [facility] RN Member Role: Primary Care Nurse Name: Isabelle Mcclure RN Position: [facility] RN Member Role: Primary Care Nurse Care Team Related Persons Name: DULCE LINDSEY Name: FAB LINDSEY Insurance Providers Guarantor name: CAPO LINDSEY Health Plan Information #: 1 Payer: MEDICARE PART B OUTPT Member Number: NA Policy Number: NA Group Number: NA Health Plan Information #: 2 Payer: MEDEX Member Number: NA Policy Number: NA Group Number: NA
--- OUTSIDE RECORDS SUMMARY | 2024-12-02 15:48 | XMS_ITS | Encounter Summary ---
Author Organization [facility] Address [address] [place] [address] Phone Care Team Providers Care Blower Installer Name Role Phone Greer Jain MD Primary Care Provider [phone] Reason for Visit * Reason Comments Med Refill Encounter Details Date Type Department Care Team (Late st Contact Info) Description 10/12/2021 Telephone [facility] [address] [place] [address] Reginald Shin MD Med Refill Social History Tobacco Use Types Packs/Day Years Used Date Smoking Tobacco: Never Smokeless Tobacco: Never Alcohol Use Standard Drinks/Week Comments Yes 0 (1 standard drink = 0.6 oz pure alcohol) Alcoholic Drinks/day: Occasional social drink Sex and Gender Information Value Date Recorded Sex Assigned at Not on file Legal Sex Male 5:10 PM EST Gender Identity Not on file Sexual Orientation Not on file documented as of this encounter Miscellaneous Notes * Telephone Encounter - Abran Iqbal MD - 10/13/2021 1:48 PM EST Can you put this prescription in * Telephone Encounter - Sushila Quevedo - 10/13/2021 12:54 PM EST Put in order waiting on Dr Iqbal to sign on it * Telephone Encounter - Kristie Medina - 10/12/2021 1:17 PM EST Pt called looking for his prescription for hydrochlorothiazide. Says he only has a couple days worth left and he requested that it be filled it at his appt on 10/03. documented in this encounter Plan of Treatment Not on file documented as of this encounter Visit Diagnoses Not on filedocumented in this encounter Care Teams Blower Installer Relationship Specialty Start Date End Date Greer Jain MD [address] [place] [id number] PCP - General 11/07/20 documented as of this encounter
--- OUTSIDE RECORDS SUMMARY | 2024-12-02 15:48 | XMS_ITS | Clinical Summary ---
Author Organization [facility] Address [address] [facility] [address] [place] [address] Phone Care Team Providers Care Controller Mechanic Name Role Phone Greer Jain MD Primary Care Provider Allergies Active Allergy Reactions Criticality Noted Date Comments Diltiazem 03/22/2021 Erythromycin Other (see comments) 03/22/2021 Erythromycin Base 03/22/2021 Labetalol Other (see comments) 05/21/2017 Lisinopril 03/22/2021 Losartan 03/22/2021 Penicillins Other (see comments) 03/22/2021 Sulfa Antibiotics 03/22/2021 Medications allopurinol (ZYLOPRIM) 100 MG tablet Take 1 tablet by mouth 1 (one) time each day Active triamcinolone (NASACORT) 55 MCG/ACT nasal inhaler Administer into each nostril 1 (one) time each day Active aspirin (ST TRACY) 81 MG EC tablet Take 81 mg by mouth 1 (one) time each day Active Ventolin HFA 108 (90 Base) MCG/ACT inhaler INHALE 2 PUFFS BY MOUTH 4 TIMES DAILY NEEDED FOR WHEEZING 2 Active Symbicort 160-4.5 MCG/ACT inhaler Inhale 2 puffs 2 (two) times a day 2 Active famotidine (PEPCID) 20 MG tablet TAKE 1 TABLET BY MOUTH TWO TIMES A DAY 3 Active Mitigare 0.6 MG capsule TAKE 2 CAPSULES BY MOUTH AT FIRST SIGN OF GOUT FLARE THEN 1 CAPSULE TWICE DAILY UNTIL FLARE RESOLVES 3 Active spironolactone (ALDACTONE) 25 MG tablet Take 1 tablet (25 mg total) by mouth in the morning and 1 tablet (25 mg total) in the evening. 60 tablet 2 3 Active cloNIDine (CATAPRES) 0.1 MG tablet Take 1 tablet (0.1 mg total) by mouth in the morning and 1 tablet (0.1 mg total) in the evening. 60 tablet 2 3 Active carvedilol (COREG) 25 MG tablet Take 1 tablet (25 mg total) by mouth in the morning and 1 tablet (25 mg total) in the evening. Take with meals. 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 Chronic kidney disease stage 2 03/22/2021 Essential hypertension 03/22/2021 Resolved Problems Problem Noted Date Diagnosed Date Resolved Date Allergic rhinitis 06/13/2023 06/13/2023 06/18/2023 Asthma 06/13/2023 06/13/2023 06/18/2023 Gout 06/13/2023 06/13/2023 06/18/2023 Hemorrhoid 06/13/2023 06/13/2023 06/18/2023 Inguinal hernia 06/13/2023 06/13/2023 06/18/2023 Obese class II 06/13/2023 06/13/2023 06/18/2023 Obstructive sleep apnea syndrome 06/13/2023 06/13/20 23 06/18/2023 Hypercholesterolemia 07/13/2014 023 Overweight 11/27/2011 06/13/2023 06/18/2023 Psoriasis 02/12/2011 06/13/2023 06/18/2023 Immunizations Name Administration Dates Next Due Moderna SARS-COV-2 01/31/2022,08/21/2021, 021,01/10/2021 Pneumococcal Conjugate 13-Valent 10/28/2016,1003/2016 Pneumococcal Polysaccharide 07/03/2018 Td, Unspecified 07/26/2005 Tdap 11/29/2012 Family History Medical History Relation Comments Gout Father Hypertension Father Stroke Father Hypertension Mother Relation Status Comments Father Mother Alive Social History Tobacco Use Types Packs/Day Years Used Date Smoking Tobacco: Never Smokeless Tobacco: Never Tobacco Cessation:Counseling Given: No Alcohol Use Standard Drinks/Week Comments Yes 0 (1 standard drink = 0.6 oz pure alcohol) Alcoholic Drinks/day: Occasional social drink Sex and Gender Information Value Date Recorded Sex Assigned at Not on file Legal Sex Male 5:10 PM EST Gender Identity Not on file Sexual Orientation Not on file Last Filed Vital Signs Vital Sign Reading Time Taken Comments Blood Pressure 130/82 06/18/2023 12:56 PM EDT Pulse 68 06/18/2023 12:56 PM EDT Temperature - - Respiratory Rate - - Oxygen Saturation 97% 06/18/2023 12:56 PM EDT Inhaled Oxygen Concentration - - Weight 93.9 kg (207 lb) 06/18/2023 12:56 PM EDT Height 170.2 cm (5' 7 ) 09/27/2020 12:00 PM EST Body Mass Index 32.42 09/27/2020 12:00 PM EST Plan of Treatment Health Maintenance Due Date Last Done Comments Colorectal Cancer Screening: Annual FOBT 1999 Colorectal Cancer Screening: Colonoscopy 1999 Colorectal Cancer Screening: Sigmoidoscopy 1999 Influenza Vaccine (#1) 2024 Pneumococcal Vaccine: 65+ Years Completed 07/03/2018, 10/28/2016, 08/22/2016 Hepatitis B Vaccine Aged Out No longe r eligible based on patient's age to complete this topic Insurance [facility] MEDICARE [facility] MEDICARE Care Teams Controller Mechanic Relationship Specialty Start Date End Date Greer Jain MD [address] [place] [address] PCP - General 11/07/20
--- OUTSIDE RECORDS SUMMARY | 2024-12-02 15:48 | XMS_ITS | Continuity of Care Document ---
Author Organization [facility] Address [address] [place] [id number]- Care Team Providers Care Manager Six Sigma Name Role Phone Ya Riojas Primary Care Physician Encounter [facility] Date(s): 10/15/24 - 11/14/24 [facility] [address] [place] [address] Encounter Type: Triage Allergies, Adverse Reactions, Alerts Substance Criticality Severity Reaction Reaction Severity Status diltiazem edema Active erythromycin gi cramps Active amLODIPine High criticality Moderate Feeling tired Active losartan chest pain Active penicillin Rash Active lisinopril [D]Cough Active Immunizations Given and [...] virus vaccine, inactivated 10/23/07 Give n SARS-CoV-2(COVID-19)mRNA-LNP vac([id number]) 08/10/23 Recorded tetanus/diphtheria/pertussis, acel(Tdap) 11/27/22 Given tetanus/diphtheria/pertussis, acel(Tdap) 11/29/12 Recorded [id number] bivalent booster vax 08/03/22 Recorded SARS-CoV-2 (COVID-19) [...] 11 Refills, Maintenance, 10/08/23 4:02:00 PM EST, [id number], Partial fill upon patient [...] 09/17/24 Status: Ordered Repeat number: 1 CPAP Public Health Professor, 05/22/23 6:56:00 PM EDT, Supply Start Date: 05/22/23 Status: Ordered Repeat number: 1 isosorbide mononitrate 30 mg oral tablet, extended release 30 mg, By Mouth, Daily, # 30 tablet, Refills 0, Tot. Refills 0, Maintenance, 09/24/24 2:55:00 PM EST, Route to Pharmacy Electronically, [facility]/pharmacy #[id number], Partial fill upon patient request [...] Replace Required Details, Route to Pharmacy Electronically, [id number], [id number], 169, cm, 08/28/24 10:25:00 [...] - Obstructive sleep apnea Confirmed 2000 Active [id number] syndrome manifesting as chronic fatigue Confirmed Active [...] Team Personnel Name: Abran Iqbal MD Position: [facility] Renal MD Member Role: Lifetime Consulting Physician Address: [address] [place] [address] [address] [place] [address]- Telecom: Name: Cherry Granger RN Position: [facility] RN Supv Member Role: Primary Care Nurse Name: Bella Reilly RN Position: [facility] RN Member Role: Primary Care Nurse Name: Christina Pryor Position: [facility] RN Member Role: Primary Care Nurse Name: Percy Denson RN Position: [facility] RN Member Role: Primary Care Nurse Name: Julio Johnson RN Position: [facility] RN Member Role: Primary Care Nurse Name: Lexii Napier RN Position: [facility] RN Member Role: Primary Care Nurse Name: Ya Riojas Position: [facility] Associate Professional Member Role: PCP Address: [address] [place] [address]- Telecom: Name: Esther Villanueva RN Position: S RN Member Role: Primary Care Nurse Name: Sylvia Gallego RN Position: S RN Member Role: Primary Care Nurse Name: Gilbert Hernández RN Position: [facility] RN Member Role: Primary Care Nurse Name: Luis Back RN Position: [facility] RN Member Role: Primary Care Nurse Name: Nazanin Blanc RN, Alexa Position: [facility] RN Member Role: Primary Care Nurse Name: Saskia ROCA, Rosalio Position: [facility] Outreach Member Role: Lifetime Consulting Physician Address: [address] [facility] [address] [facility], [place] [address]- Telecom: Name: Lashay Desai RN Position: [facility] RN Member Role: Primary Care Nurse Name: Isabelle Mcclure RN Position: [facility] RN Member Role: Primary Care Nurse Care [...]
== END 2024-12-02 14:59 | disposition home or self-care (01) ==
PROVIDERS: PCP Obstetrics & Gynecology; Visit Provider Internal Medicine Hypertension Specialist
DX: I10 Essential (primary) hypertension (principal); G47.33 Obstructive sleep apnea (adult) (pediatric); N40.0 Benign prostatic hyperplasia without lower urinary tract symptoms
CPT/HCPCS: 99214

== ENCOUNTER → 2024-12-02 14:39 | Outpatient (BNVA) | payer MEDICARE, SELFPAY | PROVIDERS: PCP Obstetrics & Gynecology; Visit Provider Internal Medicine Hypertension Specialist | DX: N40.0 Benign prostatic hyperplasia without lower urinary tract symptoms (principal); I10 Essential (primary) hypertension; G47.33 Obstructive sleep apnea (adult) (pediatric) | CPT/HCPCS: 99212 ==

== ENCOUNTER 2024-12-21 12:39 | Outpatient (REF) | payer MEDICARE, SELFPAY ==
--- NOTE | ~2024-12-21 | US_ITS ---
EXAMINATION: US RETROPERITONEUM HISTORY: N40.0 - Benign prostatic hyperplasia without lower urinary tract symptoms TECHNIQUE: Real-time grayscale ultrasound imaging of the kidneys was performed and images were reviewed. COMPARISON: There are no prior studies for comparison. FINDINGS: Right kidney: The right kidney measures 11.0 x 5.8 x 4.8 cm. Renal parenchymal echotexture and thickness are normal. There are no masses. There is mild fullness of the renal pelvis versus multiple parapelvic cysts. No calculi are identified. Left Kidney: The left kidney measures 12.1 x 5.8 x 5.5 cm. Renal parenchymal echotexture and thickness are normal. There are no masses. There is mild fullness of the renal pelvis. No calculi are identified. The urinary bladder is unremarkable. Bilateral ureteral jets are identified. Before voiding, the urinary bladder measured 11.8 x 7.1 x 8.4 cm for an estimated volume of 368 mL. After voiding, the urinary bladder measured 4.3 x 3.1 x 3.0 cm for an estimated volume of 21 mL. The prostate is normal in size measuring 3.2 x 3.5 x 4.6 cm. US/US retroperitoneal comp IMPRESSION: Mild fullness of the right renal pelvis versus parapelvic cysts. Mild fullness of the left renal pelvis. Post void bladder residual 21 mL. Electronically signed by: Sinan Dyer MD 12/22/2024 09:29 AM JAYMIE
--- OUTSIDE RECORDS SUMMARY | 2024-12-21 14:19 | XMS_ITS | Encounter Summary ---
Author Organization [facility] Address [address] [place] [address] Phone Care Team Providers Care Sales Team Manager Name Role Phone Greer Jain MD Primary Care Provider [phone] Reason for Visit * Reason Comments Med Refill Encounter Details Date Type Department Care Team (Late st Contact Info) Description 10/12/2021 Telephone [facility] [address] [place] [address] Reginald Shin MD Med Refill [...] on filedocumented in this encounter Care Teams Sales Team Manager Relationship Specialty Start Date End Date Greer Jain MD [address] [place] [id number] PCP - General 11/07/20 documented as of this encounter
--- OUTSIDE RECORDS SUMMARY | 2024-12-21 14:19 | XMS_ITS | Clinical Summary ---
Author Organization [facility] Address [address] [facility] [address] [place] [address] Phone Care Team Providers Care Airborne And Air Delivery Specialist Name Role Phone Greer Jain MD Primary [...] patient's age to complete this topic Insurance [facility] MEDICARE [facility] MEDICARE Care Teams Airborne And Air Delivery Specialist Relationship Specialty Start Date End Date Greer Jain MD [address] [place] [address] PCP - General 11/07/20
== END 2024-12-21 12:40 | disposition home or self-care (01) ==
LOC: HO.US 12:39
PROVIDERS: Visit Provider Urology
DX: N40.0 Benign prostatic hyperplasia without lower urinary tract symptoms (principal)
CPT/HCPCS: 76770

== ENCOUNTER → 2024-12-21 12:42 | Outpatient (BNV) | payer MEDICARE, SELFPAY | PROVIDERS: Visit Provider Radiology Diagnostic Radiology | DX: N40.0 Benign prostatic hyperplasia without lower urinary tract symptoms (principal) | CPT/HCPCS: 76770 ==

== ENCOUNTER 2025-01-01 13:38 | Outpatient (AMB) | payer MEDICARE, SELFPAY ==
--- NOTE | 2025-01-01 13:18 | A.OFFVIS_ITS ---
Intake Visit Reasons: 3M follow up Us Intake Note: Patient is present for 3 month follow up/US Urology Medications: Tamsuloin Antibiotic Allergy: Erythromycin, Penicillins Blood Thinner: Aspirin PVR:110ml Quality Control Checker Required: No Accompanied by: Self / Same As Patient Allergies Sulfa (Sulfonamide Antibiotics) Allergy (Intermediate, Verified 01/01/25 14:25) Rash amlodipine Allergy (Mild, Verified 01/01/25 13:42) Drowsy erythromycin base Allergy (Mild, Verified 01/01/25 13:42) Abdominal Pain Penicillins Allergy (Mild, Verified 01/01/25 13:42) Rash statins Allergy (Severe, Uncoded 10/05/24 16:03) joint pain Tamsulosin Allergy (Intermediate, Uncoded 01/01/25 14:25) rash HPI Comments Details: 01/02/24-- History of Present Illness The patient is a 74-year-old male presenting with benign prostatic hyperplasia and associated adverse reactions to tamsulosin. He has been experiencing a rash on both elbows along with nasal congestion and itching of the areolas and nipples since starting the medication. The tamsulosin, which contains sulfur, may be exacerbating these reactions due to a known sulfur drug allergy. His allergy history includes penicillin, which causes systemic rashes. He also reports sleep difficulties arising from nasal congestion, worsened by the use of a CPAP machine for his diagnosed sleep apnea, compounded by a deviated nasal septum on the left side. Mild prostate enlargement has been confirmed via ultrasound. Previous management efforts included regular prostate monitoring. Urinary Symptoms Review - Mild prostate enlargement confirmed by ultrasound. - Benign prostatic hyperplasia initially managed with tamsulosin. - No specific urinary incontinence or frequency issues described. Aller/Immun Reports no additional complaints Physical Exam General: Healthy appearing, no acute distress and well developed Orientation and consciousness: Patient oriented x3 Head: Yes normocephalic and Yes atraumatic Eyes: Conjunctivae normal Neck: Yes normal visual inspection Chest: Tenderness and itching in the areolas and nipples Respiratory: Normal respiratory effort, but patient reports stuffy nose GI: Normal to inspection : Extremities: Skin: Neurology: Patient oriented x3 Psych: Appearance grossly normal. Normal affect Results - Imaging: Ultrasound showing mild prostate enlargement. Plan The patient is advised to discontinue tamsulosin due to suspected allergic reactions. A transition to alfuzosin is planned after a 10-day medication washout period. Alfuzosin does not contain sulfur, making it a suitable altern ative for managing benign prostatic hyperplasia symptoms. A fasting PSA test is ordered to monitor ongoing prostate health. The patient will follow up via phone to discuss lab results and assess adjustment to the new medication. Patient was informed and verbally consented to the use of an ambient scribe for clinic note documentation during this visit. Discussion Notes During the consultation, I discussed with the patient the likely allergic reaction to tamsulosin, potentially due to his sulfur drug allergy. I explained that switching to alfuzosin, which lacks sulfur, might mitigate his symptoms. We discussed potential side effects such as blood pressure lowering effects, similar to tamsulosin, and advised caution when transitioning from sitting to standing positions to prevent dizziness. Given the patient's concerns with sleep apnea and nasal congestion, these aspects were considered in recommending an alternative. I have advised a fasting PSA test. We agreed on follow-up via phone to discuss lab outcomes and ensure tolerance to the new medication. Consent was obtained for the proposed treatment plan. Patient Instructions - Discontinue using tamsulosin immediately. - Wait 10 days before starting the new prescription of alfuzosin. - Visit a lab for a fasting PSA blood test before starting the new medication. - Monitor for any side effects or adverse reactions when beginning alfuzosin and report any notable changes. - Discuss preferred lab location with staff if [place] locations are inconvenient. - Attend follow-up phone consultation as scheduled to review blood test results and new medication tolerability. 10/05/24--new patient-BPH symptoms. s/o's slow urinary stream, nocturia. AUA score 17. PMH of chronic kidney disease, followed by Neurology for obstructive sleep apnea. Denies hematuria. Will trial flomax 0.4 mg daily. PFSH Medical History Asthma Obstructive sleep apnea Surgical History S/P placement of cardiac pacemaker Aortic valve replaced H/O shoulder surgery Family History Father Afib Mother Pacemaker Social History Patient Tobacco Use Status: Never used Tobacco Review of Systems Const All systems reviewed & are unremarkable except as noted in HPI and below Reports no additional complaints Eyes Reports no additional complaints ENT Reports no additional complaints Card Reports no additional complaints Resp Reports no additional complaints GI Reports no additional complaints Reports as per HPI Musc Reports no additional complaints Skin/Breast Reports system reviewed and no additional complaints, except as documented Neuro Reports no additional complaints Psych Reports no additional complaints Endo Reports no additional complaints Micheal/Lymph Reports no additional complaints Aller/Immun Reports no additional complaints Office Procedures Post Void Residual Post Residual Void Post Void Residual (PVR): 110 [id number] Void Residual by ultrasound Results AMB Urinalysis, Automated UA Leukoctes 0 Gene/uL Last Edit by Vital Access Aleman on 01/01/25 14:10 UA Nitrite Negative Last Edit by V[employer] Access Aleman on 01/01/25 14:10 UA Urobilinogen 3.5 mg/dL Last Edit by V[employer] Access Aleman on 01/01/25 14:10 UA Protein 0 mg/dL Last Edit by V[employer] Access Aleman on 01/01/25 14:10 UA pH 6.0 Last Edit by V[employer] Access Aleman on 01/01/25 14:10 UA Blood 0 Anthony/uL Last Edit by Crystal Aleman on 01/01/25 14:10 UA Specific [place] 1.010 Last Edit by [employer] Access Aleman on 01/01/25 14:10 UA Ketone Negative Last Edit by V[employer] Access Aleman on 01/01/25 14:10 UA Bilirubin 0 mg/dL Last Edit by [employer] Access Aleman on 01/01/25 14:10 UA Glucose 0 mg/dL Last Edit by V[employer] Access Aleman on 01/01/25 14:10 Results Reviewed Results Reviewed: Date of Service: 12/21/24 EXAMINATION: US RETROPERITONEUM HISTORY: N40.0 - Benign prostatic hyperplasia without lower urinary tract symptoms TECHNIQUE: Real-time grayscale ultrasound imaging of the kidneys was performed and images were reviewed. COMPARISON: There are no prior studies for comparison. FINDINGS: Right kidney: The right kidney measures 11.0 x 5.8 x 4.8 cm. Renal parenchymal echotexture and thickness are normal. There are no masses. There is mild fullness of the renal pelvis versus multiple parapelvic cysts. No calculi are identified. Left Kidney: The left kidney measures 12.1 x 5.8 x 5.5 cm. Renal parenchymal echotexture and thickness are normal. There are no masses. There is mild fullness of the renal pelvis. No calculi are identified. The urinary bladder is unremarkable. Bilateral ureteral jets are identified. Before voiding, the urinary bladder measured 11.8 x 7.1 x 8.4 cm for an estimated volume of 368 mL. After voiding, the urinary bladder measured 4.3 x 3.1 x 3.0 cm for an estimated volume of 21 mL. The prostate is normal in size measuring 3.2 x 3.5 x 4.6 cm. IMPRESSION: Mild fullness of the right renal pelvis versus parapelvic cysts. Mild fullness of the left renal pelvis. Post void bladder residual 21 mL. Assessment & Plan Assessment & Plan (1) BPH (benign prostatic hyperplasia): Code(s): N40.0 - Benign prostatic hyperplasia without lower urinary tract symptoms Category: Medical (2) Weak urinary stream: Code(s): R39.12 - Poor urinary stream Category: Medical (3) Nocturia: Code(s): R35.1 - Nocturia Category: Medical Orders: Orders PSA,Total (Free>4and<10) Today N40.0 - Benign prostatic hyperplasia without lower urinary tract symptoms AMB Urinalysis Automated Today Z13.9 - Encounter for screening, unspecified Coding Diagnoses BPH (benign prostatic hyperplasia) N40.0 Weak urinary stream R39.12 Nocturia R35.1 CPT Codes Post Residual Void - PVR CPT Code: 66001-Rogc Void Residual by ultrasound ([id number])
--- OUTSIDE RECORDS SUMMARY | 2025-01-01 15:15 | XMS_ITS | Clinical Summary ---
Author Organization [facility] Address [address] [facility] [address] [place] [address] Phone Care Team Providers Care Commercial Real Estate Lender Name Role Phone Greer Jain MD Primary Care Provider [phone] Allergies Active Allergy Reactions Criticality Noted Date [...] patient's age to complete this topic Insurance [facility] MEDICARE [facility] MEDICARE Care Teams Commercial Real Estate Lender Relationship Specialty Start Date End Date Greer Jain MD [address] [place] [address] PCP - General 11/07/20
--- OUTSIDE RECORDS SUMMARY | 2025-01-01 15:15 | XMS_ITS | Encounter Summary ---
Author Organization [facility] Address [address] [place] [address] Phone Care Team Providers Care Cotton Dispatcher Name Role Phone Greer Jain MD Primary Care Provider Reason for Visit * Reason Comments Med Refill Encounter Details Date Type Department Care Team (Late st Contact Info) Description 10/12/2021 Telephone [facility] [address] [place] [address] Reginald Shin MD Med Refill [...] on filedocumented in this encounter Care Teams Cotton Dispatcher Relationship Specialty Start Date End Date Greer Jain MD [address] [place] [address] PCP - General 11/07/20 documented as of this encounter
== END 2025-01-01 14:13 | disposition home or self-care (01) ==
PROVIDERS: PCP Obstetrics & Gynecology; Visit Provider Urology
DX: Z13.9 Encounter for screening, unspecified (principal)

== ENCOUNTER → 2025-01-01 13:38 | Outpatient (BNVA) | payer MEDICARE, SELFPAY | PROVIDERS: PCP Obstetrics & Gynecology; Visit Provider Urology | DX: N40.0 Benign prostatic hyperplasia without lower urinary tract symptoms (principal); R39.12 Poor urinary stream; R35.0 Frequency of micturition; Z13.9 Encounter for screening, unspecified | CPT/HCPCS: 51798; 81003 ==

== ENCOUNTER 2025-02-03 09:30 | Outpatient (REF) | payer MEDICARE, SELFPAY ==
--- OUTSIDE RECORDS SUMMARY | 2025-02-03 10:18 | XMS_ITS | Encounter Summary ---
Author Organization [facility] Address [address] [place] [address] Phone Care Team Providers Care Counter Control Operator Name Role Phone Greer Jain MD Primary Care Provider [phone] Reason for Visit * Reason Comments Med Refill Encounter Details Date Type Department Care Team (Late st Contact Info) Description 10/12/2021 Telephone [facility] [address] [place] [address] Reginald Shin MD Med Refill [...] on filedocumented in this encounter Care Teams Counter Control Operator Relationship Specialty Start Date End Date Greer Jain MD [address] [place] [id number] PCP - General 11/07/20 documented as of this encounter
--- OUTSIDE RECORDS SUMMARY | 2025-02-03 10:18 | XMS_ITS | Clinical Summary ---
Author Organization [facility] Address [address] [facility] [address] [place] [address] Phone Care Team Providers Care Animal Attendants And Trainers Name Role Phone Greer Jain MD Primary [...] Colorectal Cancer Screening: Sigmoidoscopy 1999 Influenza Vaccine (Season Ended) 2025 Pneumococcal Vaccine: 65+ Years Completed 07/03/2018, 10/28/2016, 08/22/2016 Hepatitis B Vaccine Aged Out No longe r eligible based on patient's age to complete this topic Insurance [facility] MEDICARE [facility] MEDICARE Care Teams Animal Attendants And Trainers Relationship Specialty Start Date End Date Greer Jain MD [address] [place] [address] PCP - General 11/07/20
[2025-02-03 12:07] LABS: Anion Gap 13 (12-20); Blood Urea Nitrogen 19 mg/dL (9-16); Calcium 9.5 mg/dL (8.4-10.2); Carbon Dioxide 25 mmol/L (22-29); Chloride 108 mmol/L (96-108); Estimated Glomerular Filt Rate > 60; Glucose Random 93 mg/dL (60-115); Sodium 142 mmol/L (135-145)
[2025-02-03 12:27] LABS: PSA,Total (Free>4and<10) 1.27 ng/mL (0.00-4.00)
== END 2025-02-03 09:31 | disposition home or self-care (01) ==
LOC: HO.WFDLDS 09:30
PROVIDERS: Referring Provider Internal Medicine Hypertension Specialist; Visit Provider Urology
DX: N40.0 Benign prostatic hyperplasia without lower urinary tract symptoms (principal); I10 Essential (primary) hypertension; Z12.5 Encounter for screening for malignant neoplasm of prostate
CPT/HCPCS: 36415; 80048; 84153

== ENCOUNTER 2025-03-16 08:45 | Outpatient (AMB) | payer MEDICARE, SELFPAY ==
--- NOTE | 2025-03-16 08:45 | A.OFFVIS_ITS ---
Intake Visit Reasons: follow up/PSA Intake Note: Patient is present for PSA F/U Urology Medication:SILODOSIN Antibiotic Allergy:SULFA,PENICLLINS,ERYTHROMYCIN BASE Blood Thinner:ASPIRIN Flatware Maker Required: No Allergies Sulfa (Sulfonamide Antibiotics) Allergy (Intermediate, Verified 03/16/25 08:47) Rash amlodipine Allergy (Mild, Verified 03/16/25 08:47) Drowsy erythromycin base Allergy (Mild, Verified 03/16/25 08:47) Abdominal Pain Penicillins Allergy (Mild, Verified 03/16/25 08:47) Rash statins Allergy (Severe, Uncoded 03/16/25 08:47) joint pain Tamsulosin Allergy (Intermediate, Uncoded 03/16/25 08:47) rash Medication List - Last Reconciled 03/16/25 by Jimmie Olson MD albuterol sulfate 90 mcg/actuation (Ventolin HFA) 2 puffs inhalation Q6H PRN alfuzosin ER 10 mg PO DAILY aspirin (Adult Low Dose Aspirin) 81 mg PO DAILY budesonide-formoterol 160-4.5 mcg/actuation (Symbicort) 2 puffs inhalation BID clonidine HCl 0.1 mg PO BEDTIME CPAP (CPAP Machine/Device) As directed ipratropium bromide intranasal PRN isosorbide mononitrate ER 30 mg PO DAILY melatonin 1 mg PO BEDTIME PRN nebivolol (Bystolic) 20 mg PO DAILY peak flow meter (In-Check Nasal With Mask) As directed spironolactone 25 mg PO DAILY HPI Comments Details: 03/16/25--74-year-old male presenting for FU benign prostatic hyperplasia, was initially evaluated 10/05/24 and stated on tamsulosin, states he is having adverse reactions to tamsulosin, rash on both elbows along with nasal congestion since starting the medication. Bruno was last seen in the office on 01/01/2025, at that time a trial of Rapaflo 4 mg was discussed and prescribed. During discussion today I have advised that PSA on 02/03/2025 was 1.27 ng/mL within normal limits. The patient states that he does not like the ejaculatory side effects with the Rapaflo and read that alfuzosin has less of the side effects. I discussed that they both work in a similar fashion as an alpha-abiodun to relax the muscles at the bladder neck and prostatic urethra. I will change the medication to alfuzosin and see if he notices less ejaculatory issues. Follow- up in 6 months uroflow at that time. 01/01/25--74-year-old male presenting for FU benign prostatic hyperplasia, was initially evaluated 10/05/24 and stated on tamsulosin, states he is having adverse reactions to tamsulosin, rash on both elbows along with nasal congestion since starting the medication. He also reports sleep difficulties arising from nasal congestion, worsened, he needs a CPAP machine for his diagnosed sleep apnea, compounded by a deviated nasal septum on the left side. Discussed ultrasound results. Urinary Symptoms Review - Mild prostate enlargement confirmed by ultrasound. - Benign prostatic hyperplasia initially managed with tamsulosin. - No specific urinary incontinence or frequency issues described. Results - Imagin12/21/24--Ultrasound showing kidneys within normal limits, mild prostate enlargement. 10/05/24--new patient-BPH symptoms. s/o's slow urinary stream, nocturia. AUA score 17. PMH of chronic kidney disease, followed by Neurology for obstructive sleep apnea. Denies hematuria. Will trial flomax 0.4 mg daily. PFSH Medical History Asthma Obstructive sleep apnea Surgical History S/P placement of cardiac pacemaker Aortic valve replaced H/O shoulder surgery Family History Father Afib Mother Pacemaker Social History Patient Tobacco Use Status: Never used Tobacco Review of Systems Const All systems reviewed & are unremarkable except as noted in HPI and below Reports no additional complaints Eyes Reports no additional complaints ENT Reports no additional complaints Card Reports no additional complaints Resp Reports no additional complaints GI Reports no additional complaints Reports as per HPI Musc Reports no additional complaints Skin/Breast Reports system reviewed and no additional complaints, except as documented Neuro Reports no additional complaints Psych Reports no additional complaints Endo Reports no additional complaints Micheal/Lymph Reports no additional complaints Aller/Immun Reports no additional complaints Telehealth Telehealth Telehealth Platform: D[employer]imity Location of provider rendering services: practice address Location of patient: address on file Patient Identification confirmed using: Name, : Yes Telehealth method: video Patient verbally consented to treatment: Yes Patient verbally consented to billing insurance company: Yes Patient informed of any privacy concerns related to visit: Yes Assessment & Plan Assessment & Plan (1) BPH (benign prostatic hyperplasia): Code(s): N40.0 - Benign prostatic hyperplasia without lower urinary tract symptoms Category: Medical (2) Weak urinary stream: Code(s): R39.12 - Poor urinary stream Category: Medical (3) Nocturia: Code(s): R35.1 - Nocturia Category: Medical Plan Plan - Discontinue Rapaflo. Start Alfuzosin - Cont annual PSA screening - FU in 6 months, Uroflow on follow up Medications: New alfuzosin ER administer after the same meal each day 10 mg PO DAILY 90 tabs 3RF Discontinued silodosin (Rapaflo) must administer with a meal/food Discontinued Reason: Doctor's Order 4 mg PO DAILY 30 caps 3RF Patient Instructions: The patient had an opportunity to ask questions regarding treatment plan. The patient expressed understanding and agreement with the above treatment plan. The patient is aware they should contact our office by phone for worsening of their current condition or the appearance of new symptoms. Compliance is encouraged with any medications and followup testing that is ordered. It is a privilege to be allowed the opportunity to participate in the urologic care of your patient. If you have any questions or concerns regarding treatment for the above conditions please do not hesitate to contact me. The office telephone contact is [phone]. This note is constructed in part using voice recognition software. While every effort has been made to ensure accuracy transportation dispatcher errors may have been included. Yours sincerely, Jimmie Olson MD Coding Level of Care Code Tele Est Pt Level 4 (82906) Diagnoses BPH (benign prostatic hyperplasia) N40.0 Weak urinary stream R39.12 Nocturia R35.1
--- OUTSIDE RECORDS SUMMARY | 2025-03-16 09:00 | XMS_ITS | Encounter Summary ---
Author Organization [facility] Address [address] [place] [address] Phone Care Team Providers Care Card Services Specialist Name Role Phone Greer Jain MD Primary Care Provider [phone] Reason for Visit * Reason Comments Med Refill Encounter Details Date Type Department Care Team (Late st Contact Info) Description 10/12/2021 Telephone [facility] [address] [place] [address] Reginald Shin MD Med Refill [...] on filedocumented in this encounter Care Teams Card Services Specialist Relationship Specialty Start Date End Date Greer Jain MD [address] [place] [id number] PCP - General 11/07/20 documented as of this encounter
--- OUTSIDE RECORDS SUMMARY | 2025-03-16 09:00 | XMS_ITS | Clinical Summary ---
Author Organization [facility] Address [address] [facility] [address] [place] [address] Phone Care Team Providers Care Director Process Name Role Phone Greer Jain MD Primary [...] 06/13/2023 06/18/2023 Psoriasis 02/12/2011 06/13/2023 06/18/2023 Immunizations Immunization Administration Dates Next Due Moderna SARS-COV-2 01/31/2022,08/21/2021, [...] Influenza Vaccine (Season Ended) 2025 Pneumococcal Vaccine: 50+ Years Completed 07/03/2018, 10/28/2016, 08/22/2016 Pneumococcal Vaccine: Peds ( 0 to 5 Years) and At-Risk Patients (6 to 49 Years) Discontinued 07/03/2018, 10/28/2016, 08/22/2016 Hepatitis B Vaccine Aged Out No longe r eligible based on patient's age to complete this topic Insurance [facility] Medicare [facility] Medicare Care Teams Director Process Relationship Specialty Start Date End Date Greer Jain MD [address] [place] [address] PCP - General 11/07/20
== END 2025-03-16 11:04 | disposition home or self-care (01) ==
LOC: HO.HUSH 08:45
PROVIDERS: PCP Obstetrics & Gynecology; Visit Provider Urology
DX: N40.0 Benign prostatic hyperplasia without lower urinary tract symptoms (principal); R39.12 Poor urinary stream; R35.1 Nocturia
CPT/HCPCS: 99214

== ENCOUNTER → 2025-03-16 08:45 | Outpatient (BNVA) | payer MEDICARE, SELFPAY | PROVIDERS: PCP Obstetrics & Gynecology; Visit Provider Urology | DX: Z13.89 Encounter for screening for other disorder (principal) ==

== ENCOUNTER 2025-04-07 13:32 | Outpatient (AMB) | payer MEDICARE, SELFPAY ==
--- NOTE | 2025-04-07 13:37 | HO.NEPHOV_ITS ---
Vital Signs 04/07/25 13:38 Height 5 ft 7 in Weight 210 lb BMI 32.9 BP 152/72 H Blood Pressure Location Lt brachial Position Sitting Pulse 74 Pulse Source Pulse Oximeter Pulse Oximetry (%) 98 Oxygen Delivery Method Room Air Intake Visit Reasons: March F/U/ LVM Automobile Body Customizer Required: No Accompanied by: Self / Same As Patient Allergies Sulfa (Sulfonamide Antibiotics) Allergy (Intermediate, Verified 04/07/25 13:40) Rash amlodipine Allergy (Mild, Verified 04/07/25 13:40) Drowsy erythromycin base Allergy (Mild, Verified 04/07/25 13:40) Abdominal Pain Penicillins Allergy (Mild, Verified 04/07/25 13:40) Rash statins Allergy (Severe, Uncoded 03/16/25 08:47) joint pain Tamsulosin Allergy (Intermediate, Uncoded 03/16/25 08:47) rash HPI Comments Details: Bruno is a pleasant middle-aged man with a history of resistant hypertension in the setting of obstructive sleep apnea and obesity. Blood pressure has been rather difficult to control in the past. He is sensitive to various medications In the past blood pressure was well controlled with Bystolic. During his recent hospitalization at [facility] all his medications with changes due to significantly elevated blood pressure. Currently he is on spironolactone 25 mg daily, clonidine 0.1 mg at bedtime, carvedilol 20 mg twice a day. Home blood pressure readings have been acceptable. He is having issues with clonidine and wants to stop this. There is a history of H pylori but he was unable to tolerate the treatment regimen and all the medications were discontinued few months ago. He had significant GI symptoms which seems to improved over the last month or so. He is having some trouble breathing in the form of wheezing when he goes out any attributes this to allergies. He follows with Dr. Enriquez from pulmonary History of severe aortic regurgitation status post TAVR in June 2020. Status post pacemaker placement 01/08/24 ;Home BP was high;H is back on Clonidine 0.1 mg QHS Still has dyspnea on exertion;No chest pain 05/07/2024. Here for follow-up. Continues with the current antihypertensive regimen. He wakes up at night what least once to urinate. He takes melatonin.Home blood pressure readings were reviewed 08/05/24;Overall doing well BP accpetable; Complains of increased urinary frequency at night. He has some hesitancy as well. 10/07/2024 Bruno was recently hospitalized for pneumonia. He had bacteremia in successfully treated with IV antibiotics. Blood pressure is suboptimal. Antihypertensive medication change during hospitalization. Last week he called my office and I started him back on Bystolic. He is no longer on Coreg Home blood pressure readings are better. Seen by Urology. Tamsulosin has been started. Renal ultrasonogram has been ordered. 12/02/24 Feels better Dyspnea is better On Bystolic Seeing by Cardiology;s/p chemical stress test 04/07/25 75-year-old male with labile HTN .His blood pressure has been inconsistent, with recent notable elevations potentially linked to missed antihypertensive doses. The patient experiences occasional orthostatic dizziness but denies persistent related complaints. Additionally, the patient reported addressing a recent episode of diverticulitis without antibiotics by modifying his diet, recognizing shellfish and red meat as dietary triggers. Past gastrointestinal complaints possibly linked to gout have not persisted since dietary adjustments. [facility] Medical History Asthma Obstructive sleep apnea Surgical History S/P placement of cardiac pacemaker Aortic valve replaced H/O shoulder surgery Family History Father Afib Mother Pacemaker Social History Patient Tobacco Use Status: Never used Tobacco Physical Exam Vital Signs: Last Vital Signs Pulse 74 04/07/25 13:38 BP 152/72 H 04/07/25 13:38 Pulse Ox 98 04/07/25 13:38 Oxygen Delivery Method Room Air 04/07/25 13:38 BMI result Body Mass Index 32.9 Comfortable Neck supple no JVD. Lungs entry equal no rales. Heart S1-S2 heard no gallop or rub. Abdomen soft nontender. Neuro alert awake oriented. No asterixis. Extremities no edema. Results Reviewed Nephrology Results: Sodium 142 mmol/L (135-145) 02/03/25 Potassium 4.0 mmol/L (3.3-5.1) 02/03/25 Chloride 108 mmol/L (96-108) 02/03/25 Carbon Dioxide 25 mmol/L (22-29) 02/03/25 BUN 19 mg/dL (9-16) H 02/03/25 Creatinine 0.95 mg/dL (0.5-1.4) 02/03/25 Calcium 9.5 mg/dL (8.4-10.2) 02/03/25 Assessment & Plan Assessment & Plan (1) HTN (hypertension): Code(s): I10 - Essential (primary) hypertension Category: Medical (2) Obstructive sleep apnea: Code(s): G47.33 - Obstructive sleep apnea (adult) (pediatric) Category: Medical (3) BPH (benign prostatic hyperplasia): Code(s): N40.0 - Benign prostatic hyperplasia without lower urinary tract symptoms Category: Medical Plan Bruno has resistant hypertension in setting of obstructive sleep apnea and blood pressure has been difficult to control. He has sensitive to various antihypertensive medications and this has made management rather difficult. The list of medication that he is allergic to have been listed above. Encouraged him to stay on low-sodium diet Continue to use CPAP regularly. All medication were reviewed. Of carvedilol. Currently on Bystolic s/p cardiac workup. No intervention planned h/o nocturia and hesitancy. Probably has BPH Seen by Urology. Recently started on tamsulosin. He feels better. Coding Level of Care Code Est Pt Level 4 (82981) Diagnoses HTN (hypertension) I10 Obstructive sleep apnea G47.33 BPH (benign prostatic hyperplasia) N40.0
[2025-04-07 13:38] VITALS: BP 152/72; PULSE 74; O2SAT 98; BMI 32.9
--- OUTSIDE RECORDS SUMMARY | 2025-04-07 15:18 | XMS_ITS | Clinical Summary ---
Author Organization [facility] Address [address] [facility] [address] [place] [address] Phone Care Team Providers Care Mortgage Protection Sales Name Role Phone Greer Jain MD Primary [...] to complete this topic Insurance [facility] Medicare [facility] Medicare Care Teams Mortgage Protection Sales Relationship Specialty Start Date End Date Greer Jain MD [address] [place] [address] PCP - General 11/07/20
== END 2025-04-07 14:00 | disposition home or self-care (01) ==
LOC: HO.HKAE 13:33
PROVIDERS: PCP Obstetrics & Gynecology; Visit Provider Internal Medicine Hypertension Specialist
DX: I10 Essential (primary) hypertension (principal); G47.33 Obstructive sleep apnea (adult) (pediatric); N40.0 Benign prostatic hyperplasia without lower urinary tract symptoms
CPT/HCPCS: 99214

== ENCOUNTER → 2025-04-07 13:32 | Outpatient (BNVA) | payer MEDICARE, SELFPAY | PROVIDERS: PCP Obstetrics & Gynecology; Visit Provider Internal Medicine Hypertension Specialist | DX: I10 Essential (primary) hypertension (principal); N40.0 Benign prostatic hyperplasia without lower urinary tract symptoms; G47.33 Obstructive sleep apnea (adult) (pediatric) | CPT/HCPCS: 99212 ==

== ENCOUNTER 2025-05-04 12:18 | Outpatient (AMB) | payer MEDICARE, SELFPAY ==
--- NOTE | 2025-05-04 12:23 | MHC.OFFVIS ---
Vital Signs 05/04/25 12:25 Height 5 ft 7 in Weight 209 lb BMI 32.7 BP 140/88 H Blood Pressure Location Rt brachial Position Sitting Intake Visit Reasons: 6 mnts f/u Intake Note: Patient presents for follow up 6 months cpap compliance scanned 04/26/25 Allergies Sulfa (Sulfonamide Antibiotics) Allergy (Intermediate, Verified 04/07/25 13:40) Rash amlodipine Allergy (Mild, Verified 04/07/25 13:40) Drowsy erythromycin base Allergy (Mild, Verified 04/07/25 13:40) Abdominal Pain Penicillins Allergy (Mild, Verified 04/07/25 13:40) Rash statins Allergy (Severe, Uncoded 03/16/25 08:47) joint pain Tamsulosin Allergy (Intermediate, Uncoded 03/16/25 08:47) rash HPI Comments Details: 75 y/o male patient comes for follow up of MANNY on CPAP. Pt reports his CPAP broken, and uses his old CPAP. He has new CPAP equipment with mask and is doing well. The CPAP compliance and therapy response past 90 days ) reviewed. He is on AutoPAP 8-13 cm of water. Compliance report-94% The average usage hours 7 hours and 52 min. AHI 1 and the max pressure was 12.9. [facility] Medical History Asthma Obstructive sleep apnea Surgical History S/P placement of cardiac pacemaker Aortic valve replaced H/O shoulder surgery Family History Father Afib Mother Pacemaker Social History Patient Tobacco Use Status: Never used Tobacco Physical Exam Vital Signs: Last Vital Signs BP 140/88 H 05/04/25 12:25 BMI result Body Mass Index 32.7 Const General: cooperative Nutritional Appearance: obese Orientation/consciousness: patient oriented x3 Limitations: no limitations Neck Neck: Yes full ROM and Yes supple Resp Effort & Inspection: normal respiratory effort and able to speak in complete sentences Neuro General: patient oriented x3, gait normal, tone normal and moves all extremities Cognition (Neuro): normal cognition Gait exam (Neuro): Normal gait present Motor exam (neuro): 5/5 motor strength present throughout, Pronator motor function not present and no tremor noted Assessment & Plan Assessment & Plan (1) Obstructive sleep apnea: Code(s): G47.33 - Obstructive sleep apnea (adult) (pediatric) Category: Medical Plan Continue to use APAP [id number] as patient experiences good clinical effects. Stressed compliance, use CPAP nightly and more than 4 hours. Advised patient to try melatonin 1 mg, 1-3 tabs qHS. Coding Level of Care Code Est Pt Level 3 (94560) Diagnoses Obstructive sleep apnea G47.33
[2025-05-04 12:25] VITALS: BP 140/88; BMI 32.7
--- OUTSIDE RECORDS SUMMARY | 2025-05-04 13:07 | XMS_ITS | Clinical Summary ---
Author Organization [facility] Address [address] [facility] [address] [place] [address] Phone Care Team Providers Care Sap Mobility Architect Name Role Phone Greer Jain MD Primary [...] Cancer Screening: Sigmoidoscopy 1999 Influenza Vaccine (#1) 2025 Pneumococcal Vaccine: 50+ Years Completed 07/03/2018, 10/28/2016, 08/22/2016 Pneumococcal Vaccine: Peds ( 0 to 5 Years) and At-Risk Patients (6 to 49 Years) Discontinued 07/03/2018, 10/28/2016, 08/22/2016 Hepatitis B Vaccine Aged Out No longe r eligible based on patient's age to complete this topic Insurance [facility] Medicare [facility] Medicare Care Teams Sap Mobility Architect Relationship Specialty Start Date End Date Greer Jain MD [address] [place] [address] PCP - General 11/07/20
== END 2025-05-04 12:48 | disposition home or self-care (01) ==
LOC: HO.HSMS 12:19
PROVIDERS: PCP Obstetrics & Gynecology; Visit Provider Psychiatry & Neurology Neurology
DX: G47.33 Obstructive sleep apnea (adult) (pediatric) (principal)
CPT/HCPCS: 99213

== ENCOUNTER → 2025-05-04 12:18 | Outpatient (BNVA) | payer MEDICARE, SELFPAY | PROVIDERS: PCP Obstetrics & Gynecology; Visit Provider Psychiatry & Neurology Neurology | DX: G47.33 Obstructive sleep apnea (adult) (pediatric) (principal); Z99.89 Dependence on other enabling machines and devices | CPT/HCPCS: 99212 ==

== ENCOUNTER 2025-08-18 14:50 | Outpatient (AMB) | payer MEDICARE, SELFPAY ==
[2025-08-18 14:52] VITALS: BP 142/72; PULSE 65; O2SAT 97; BMI 34.1
--- NOTE | 2025-08-18 14:52 | HO.NEPHOV_ITS ---
Vital Signs 08/18/25 14:52 Height 5 ft 7 in Weight 218 lb BMI 34.1 BP 142/72 H Blood Pressure Location Lt brachial Position Sitting Pulse 65 Pulse Source Pulse Oximeter Pulse Oximetry (%) 97 Oxygen Delivery Method Room Air Intake Visit Reasons: BPH confirmed Instructor Tap Dancing Required: No Accompanied by: Self / Same As Patient Allergies Sulfa (Sulfonamide Antibiotics) Allergy (Intermediate, Verified 08/18/25 14:53) Rash amlodipine Allergy (Mild, Verified 08/18/25 14:53) Drowsy erythromycin base Allergy (Mild, Verified 08/18/25 14:53) Abdominal Pain Penicillins Allergy (Mild, Verified 08/18/25 14:53) Rash statins Allergy (Severe, Uncoded 03/16/25 08:47) joint pain Tamsulosin Allergy (Intermediate, Uncoded 03/16/25 08:47) rash Medication List - Last Reconciled 08/18/25 by Abran Iqbal MD albuterol sulfate 90 mcg/actuation (Ventolin HFA) 2 puffs inhalation Q6H PRN alfuzosin ER 10 mg PO DAILY aspirin (Adult Low Dose Aspirin) 81 mg PO DAILY budesonide-formoterol 160-4.5 mcg/actuation (Symbicort) 2 puffs inhalation BID clonidine HCl 0.1 mg PO BEDTIME CPAP (CPAP Machine/Device) As directed ipratropium bromide intranasal PRN isosorbide mononitrate ER 30 mg PO DAILY melatonin 1 mg PO BEDTIME PRN nebivolol (Bystolic) 20 mg PO DAILY peak flow meter (In-Check Nasal With Mask) As directed spironolactone 25 mg PO DAILY HPI Comments Details: Bruno is a pleasant middle-aged man with a history of resistant hypertension in the setting of obstructive sleep apnea and obesity. Blood pressure has been rather difficult to control in the past. He is sensitive to various medications In the past blood pressure was well controlled with Bystolic. During his recent hospitalization at [facility] all his medications with changes due to significantly elevated blood pressure. Currently he is on spironolactone 25 mg daily, clonidine 0.1 mg at bedtime, carvedilol 20 mg twice a day. Home blood pressure readings have been acceptable. He is having issues with clonidine and wants to stop this. There is a history of H pylori but he was unable to tolerate the treatment regimen and all the medications were discontinued few months ago. He had significant GI symptoms which seems to improved over the last month or so. He is having some trouble breathing in the form of wheezing when he goes out any attributes this to allergies. He follows with Dr. Enriquez from pulmonary History of severe aortic regurgitation status post TAVR in June 2020. Status post pacemaker placement 01/08/24 ;Home BP was high;H is back on Clonidine 0.1 mg QHS Still has dyspnea on exertion;No chest pain 05/07/2024. Here for follow-up. Continues with the current antihypertensive regimen. He wakes up at night what least once to urinate. He takes melatonin.Home blood pressure readings were reviewed 08/05/24;Overall doing well BP accpetable; Complains of increased urinary frequency at night. He has some hesitancy as well. 10/07/2024 Bruno was recently hospitalized for pneumonia. He had bacteremia in successfully treated with IV antibiotics. Blood pressure is suboptimal. Antihypertensive medication change during hospitalization. Last week he called my office and I started him back on Bystolic. He is no longer on Coreg Home blood pressure readings are better. Seen by Urology. Tamsulosin has been started. Renal ultrasonogram has been ordered. 12/02/24 Feels better Dyspnea is better On Bystolic Seeing by Cardiology;s/p chemical stress test 04/07/25 75-year-old male with labile HTN .His blood pressure has been inconsistent, with recent notable elevations potentially linked to missed antihypertensive doses. The patient experiences occasional orthostatic dizziness but denies persistent related complaints. Additionally, the patient reported addressing a recent episode of diverticulitis without antibiotics by modifying his diet, recognizing shellfish and red meat as dietary triggers. Past gastrointestinal complaints possibly linked to gout have not persisted since dietary adjustments. 08/18/25 - The patient is a 75-year-old male presenting with resistant hypertension - Hypertension: Home BP 140-155 mmHg, no dizziness. - Gout: Two knee flare-ups last month, managed with colchicine. - Prediabetes: A1c reduced to 5.9, dietary changes implemented. - Diverticulitis: Recent recovery, resumed normal diet. [facility] Medical History Asthma Obstructive sleep apnea Surgical History S/P placement of cardiac pacemaker Aortic valve replaced H/O shoulder surgery Family History Father Afib Mother Pacemaker Social History Patient Tobacco Use Status: Never used Tobacco Physical Exam Vital Signs: Last Vital Signs Pulse 65 08/18/25 14:52 BP 142/72 H 08/18/25 14:52 Pulse Ox 97 08/18/25 14:52 Oxygen Delivery Method Room Air 08/18/25 14:52 BMI result Body Mass Index 34.1 Results Reviewed Nephrology Results: Sodium, (135-145) 142 mmol/L 02/03/25 Potassium, (3.3-5.1) 4.0 mmol/L 02/03/25 Chloride, (96-108) 108 mmol/L 02/03/25 Carbon Dioxide, (22-29) 25 mmol/L 02/03/25 BUN, (9-16) 19 mg/dL H 02/03/25 Creatinine, (0.5-1.4) 0.95 mg/dL 02/03/25 Calcium, (8.4-10.2) 9.5 mg/dL 02/03/25 Assessment & Plan Assessment & Plan (1) HTN (hypertension): Code(s): I10 - Essential (primary) hypertension Category: Medical (2) Obstructive sleep apnea: Code(s): G47.33 - Obstructive sleep apnea (adult) (pediatric) Category: Medical (3) BPH (benign prostatic hyperplasia): Code(s): N40.0 - Benign prostatic hyperplasia without lower urinary tract symptoms Category: Medical Plan Bruno has resistant hypertension in setting of obstructive sleep apnea and blood pressure has been difficult to control. He has sensitive to various antihypertensive medications and this has made management rather difficult. The list of medication that he is allergic to have been listed above. Encouraged him to stay on low-sodium diet Continue to use CPAP regularly. All medication were reviewed. s/p cardiac workup. No intervention planned h/o nocturia and hesitancy. Probably has BPH Seen by Urology. Recently started on tamsulosin. He feels better. Orders: Orders Basic Metabolic Panel 6 Months I10 - Essential (primary) hypertension Complete Blood Count no Diff 6 Months I10 - Essential (primary) hypertension Uric Acid 6 Months I10 - Essential (primary) hypertension Coding Level of Care Code Est Pt Level 4 (84473) Diagnoses HTN (hypertension) I10 Obstructive sleep apnea G47.33 BPH (benign prostatic hyperplasia) N40.0
== END 2025-08-18 15:10 | disposition home or self-care (01) ==
LOC: HO.HKAE 14:51
PROVIDERS: PCP Obstetrics & Gynecology; Visit Provider Internal Medicine Hypertension Specialist
DX: I10 Essential (primary) hypertension (principal); G47.33 Obstructive sleep apnea (adult) (pediatric); N40.0 Benign prostatic hyperplasia without lower urinary tract symptoms
CPT/HCPCS: 99214

== ENCOUNTER → 2025-08-18 14:50 | Outpatient (BNVA) | payer MEDICARE, SELFPAY | PROVIDERS: PCP Obstetrics & Gynecology; Visit Provider Internal Medicine Hypertension Specialist | DX: I10 Essential (primary) hypertension (principal); I1A.0 Resistant hypertension; G47.33 Obstructive sleep apnea (adult) (pediatric); R35.1 Nocturia; R39.11 Hesitancy of micturition; Z99.89 Dependence on other enabling machines and devices | CPT/HCPCS: 99212 ==